=== PATIENT | male | born 1935 | race African-American/Black ===

== ENCOUNTER 2017-10-01 00:31 | Emergency (ER) | payer MEDICARE, OTHER ==
[2017-10-01] MEDS: ACETAMINOPHEN/CODEINE 300/30MG TABLET. PO (01:30)
[2017-10-01 02:27] LABS: BILIRUBIN,URINE NEGATIVE (NEG); CLARITY,URINE CLEAR; COLOR,URINE YELLOW; GLUCOSE,URINE NEGATIVE (NEG); NITRITE,URINE NEGATIVE (NEG); PROTEIN,URINE NEGATIVE (NEG-TRACE)
[2017-10-01 02:32] LABS: BACTERIA,URINE 0 /HPF (0-FEW); SQUAMOUS EPITHELIAL CELL,UR OCC /LPF
== END 2017-10-01 03:00 | disposition home or self-care (01) ==
LOC: ER 00:31
DX: S30.0XXA Contusion of lower back and pelvis, initial encounter (principal); I10 Essential (primary) hypertension; G89.29 Other chronic pain; Z88.2 Allergy status to sulfonamides; Z88.1 Allergy status to other antibiotic agents; Z88.8 Allergy status to other drugs, medicaments and biological substances; W01.0XXA Fall on same level from slipping, tripping and stumbling without subsequent striking against object, initial encounter; Y93.89 Activity, other specified; Y99.8 Other external cause status; Y92.89 Other specified places as the place of occurrence of the external cause
CPT/HCPCS: 71045; 72100; 73521; 81001; 99285-25

== ENCOUNTER 2017-10-10 13:45 | Emergency (ER) | payer MEDICARE, OTHER ==
[2017-10-10] MEDS ORDERED: IV NORMAL SALINE 1000ML BAG 1,000 ML IV (14:15)
[2017-10-10] MEDS ORDERED: ONDANSETRON PF 4 MG/2 ML VIAL. IV (14:15)
[2017-10-10] MEDS: DICYCLOMINE HCL 10 MG CAPSULE PO (15:14)
[2017-10-10] MEDS: ONDANSETRON ODT 4 MG TAB.RAPDIS. PO (15:14)
[2017-10-10 15:22] LABS: ADD MAN DIFF? NO
[2017-10-10 15:31] LABS: BILIRUBIN,URINE NEGATIVE (NEG); CLARITY,URINE CLEAR; COLOR,URINE YELLOW; GLUCOSE,URINE NEGATIVE (NEG); NITRITE,URINE NEGATIVE (NEG); PROTEIN,URINE NEGATIVE (NEG-TRACE)
[2017-10-10 15:32] LABS: BASO # 0.1 x10^3/uL (0.0-0.2); BASO % 1 % (0-3); EOS # 0.1 x10^3/uL (0.0-0.7); EOS % 1 % (0-3); HEMATOCRIT 40.3 % (39.0-53.0); HEMOGLOBIN 13.3 g/dL (13.0-17.5); LYMPH # 1.6 x10^3/uL (1.0-4.8); LYMPH % 17 % (24-48); MEAN CORPUSCULAR HEMOGLOBIN 30 pg (25-35); MEAN CORPUSCULAR HGB CONC 33 g/dL (31-37); MEAN CORPUSCULAR VOLUME 92 fL (79-100); MONO # 0.9 x10^3/uL (0.0-1.1); MONO % 9 % (0-9); NEUT # 6.7 x10^3uL (1.8-7.7); NEUT % 72 % (31-73); PLATELET COUNT 285 x10^3/uL (140-400); RED BLOOD COUNT 4.38 x10^6/uL (4.30-5.70); RED CELL DISTRIBUTION WIDTH 14.2 % (11.5-14.5); WHITE BLOOD COUNT 9.4 x10^3/uL (4.0-11.0)
[2017-10-10 15:38] LABS: ANION GAP 6 (6-14); BLOOD UREA NITROGEN 14 mg/dL (8-26); BUN/CREATININE RATIO 16 (6-20); CALCIUM 9.2 mg/dL (8.5-10.1); CARBON DIOXIDE 32 mmol/L (21-32); CHLORIDE 105 mmol/L (98-107); CREATININE 0.9 mg/dL (0.7-1.3); GFR 98.2; GLUCOSE 84 mg/dL (70-99); POTASSIUM 3.9 mmol/L (3.5-5.1); SODIUM 143 mmol/L (136-145)
[2017-10-10 15:41] LABS: BACTERIA,URINE 0 /HPF (0-FEW); SQUAMOUS EPITHELIAL CELL,UR FEW /LPF; WBC,URINE OCC /HPF (0-4)
[2017-10-10 15:44] LABS: ALBUMIN 3.4 g/dL (3.4-5.0); ALK PHOS 98 U/L (46-116); ALT (SGPT) 22 U/L (16-63); AST (SGOT) 15 U/L (15-37); LIPASE 423 U/L (73-393); TOTAL BILIRUBIN 0.3 mg/dL (0.2-1.0); TOTAL PROTEIN 6.7 g/dL (6.4-8.2)
== END 2017-10-10 16:15 | disposition home or self-care (01) ==
LOC: ER 13:45
DX: G89.29 Other chronic pain (principal); M54.5 Low back pain; M54.6 Pain in thoracic spine; R10.9 Unspecified abdominal pain; I10 Essential (primary) hypertension; Z98.890 Other specified postprocedural states; Z88.1 Allergy status to other antibiotic agents; Z88.8 Allergy status to other drugs, medicaments and biological substances; Z88.2 Allergy status to sulfonamides
CPT/HCPCS: 36415; 72072; 72100; 80053; 81001; 83690; 85025; 99285-25; Q0162

== ENCOUNTER 2017-10-23 14:29 | Inpatient (IN) | payer MEDICARE, OTHER ==
[2017-10-23] MEDS ORDERED: ACETAMINOPHEN 325 MG TABLET. PO ×2 (15:45→16:45)
[2017-10-23] MEDS ORDERED: ONDANSETRON PF 4 MG/2 ML VIAL. IV ×2 (15:45→16:45)
[2017-10-23 15:52] LABS: ADD MAN DIFF? NO
[2017-10-23 15:57] LABS: BASO # 0.1 x10^3/uL (0.0-0.2); BASO % 1 % (0-3); EOS # 0.1 x10^3/uL (0.0-0.7); EOS % 1 % (0-3); HEMATOCRIT 45.3 % (39.0-53.0); HEMOGLOBIN 15.2 g/dL (13.0-17.5); LYMPH # 1.1 x10^3/uL (1.0-4.8); LYMPH % 13 % (24-48); MEAN CORPUSCULAR HEMOGLOBIN 31 pg (25-35); MEAN CORPUSCULAR HGB CONC 34 g/dL (31-37); MEAN CORPUSCULAR VOLUME 92 fL (79-100); MONO # 0.7 x10^3/uL (0.0-1.1); MONO % 8 % (0-9); NEUT # 6.8 x10^3uL (1.8-7.7); NEUT % 78 % (31-73); PLATELET COUNT 307 x10^3/uL (140-400); RED BLOOD COUNT 4.94 x10^6/uL (4.30-5.70); RED CELL DISTRIBUTION WIDTH 14.2 % (11.5-14.5); WHITE BLOOD COUNT 8.7 x10^3/uL (4.0-11.0)
[2017-10-23 16:08] LABS: ANION GAP 8 (6-14); BLOOD UREA NITROGEN 14 mg/dL (8-26); CALCIUM 9.5 mg/dL (8.5-10.1); CARBON DIOXIDE 30 mmol/L (21-32); CHLORIDE 103 mmol/L (98-107); CREATININE 0.8 mg/dL (0.7-1.3); GFR 112.5; GLUCOSE 88 mg/dL (70-99); POTASSIUM 4.4 mmol/L (3.5-5.1); SODIUM 141 mmol/L (136-145)
[2017-10-23 16:20] LABS: BILIRUBIN,URINE NEGATIVE (NEG); COLOR,URINE YELLOW; GLUCOSE,URINE NEGATIVE (NEG); NITRITE,URINE NEGATIVE (NEG); PROTEIN,URINE NEGATIVE (NEG-TRACE)
[2017-10-23 16:25] LABS: BACTERIA,URINE 0 /HPF (0-FEW); CLARITY,URINE HAZY; WBC,URINE 0 /HPF (0-4)
[2017-10-23] MEDS ORDERED: DOCUSATE SODIUM 100 MG CAPSULE. PO (16:45)
[2017-10-23] MEDS ORDERED: hydrALAZINE 20 MG/ML VIAL. IVP (16:45)
[2017-10-23] MEDS ORDERED: MORPHINE SULFATE 2 MG/ML DISP.SYRIN. IV (16:45)
[2017-10-23] MEDS: ENOXAPARIN 40 MG/0.4 ML SYRINGE. SQ (16:45)
[2017-10-23] MEDS: traMADol 50 MG TABLET PO (23:33)
[2017-10-24 05:31] LABS: ADD MAN DIFF? NO
[2017-10-24 05:38] LABS: BASO # 0.1 x10^3/uL (0.0-0.2); BASO % 1 % (0-3); EOS # 0.2 x10^3/uL (0.0-0.7); EOS % 3 % (0-3); HEMATOCRIT 38.7 % (39.0-53.0); LYMPH # 1.1 x10^3/uL (1.0-4.8); LYMPH % 20 % (24-48); MEAN CORPUSCULAR HEMOGLOBIN 31 pg (25-35); MEAN CORPUSCULAR HGB CONC 34 g/dL (31-37); MEAN CORPUSCULAR VOLUME 92 fL (79-100); MONO # 0.7 x10^3/uL (0.0-1.1); MONO % 11 % (0-9); NEUT # 3.8 x10^3uL (1.8-7.7); NEUT % 65 % (31-73); PLATELET COUNT 207 x10^3/uL (140-400); RED BLOOD COUNT 4.23 x10^6/uL (4.30-5.70); RED CELL DISTRIBUTION WIDTH 13.8 % (11.5-14.5); WHITE BLOOD COUNT 5.9 x10^3/uL (4.0-11.0)
[2017-10-24 05:53] LABS: ANION GAP 4 (6-14); BLOOD UREA NITROGEN 19 mg/dL (8-26); CALCIUM 8.8 mg/dL (8.5-10.1); CARBON DIOXIDE 30 mmol/L (21-32); CHLORIDE 109 mmol/L (98-107); CREATININE 0.9 mg/dL (0.7-1.3); GFR 98.2; GLUCOSE 76 mg/dL (70-99); SODIUM 143 mmol/L (136-145)
[2017-10-24] MEDS: POLYETHYLENE GLYCOL 3350 17 GM PACKET. PO (11:30)
[2017-10-24] MEDS: PANTOPRAZOLE 40 MG TABLET.DR. PO (13:25)
[2017-10-24] MEDS: GABAPENTIN 300 MG CAPSULE. PO ×2 (13:25→20:52)
[2017-10-24] MEDS: LISINOPRIL 10 MG TABLET PO (13:26)
[2017-10-24] MEDS: DICYCLOMINE HCL 10 MG CAPSULE PO ×2 (13:27→20:52)
[2017-10-24] MEDS: LIDOCAINE (700MG/PATCH) PATCH. TD (13:27)
[2017-10-24] MEDS: ENOXAPARIN 40 MG/0.4 ML SYRINGE. SQ (17:47)
[2017-10-24] MEDS: DICLOFENAC SODIUM 1% TOPICAL GEL 100GM TUBE. TP (20:52)
[2017-10-24] MEDS: PATCH REMOVAL. MC (21:00)
[2017-10-25] MEDS: DICYCLOMINE HCL 10 MG CAPSULE PO ×3 (08:53→20:25)
[2017-10-25] MEDS: LIDOCAINE (700MG/PATCH) PATCH. TD (08:53)
[2017-10-25] MEDS: PANTOPRAZOLE 40 MG TABLET.DR. PO (08:53)
[2017-10-25] MEDS: LISINOPRIL 10 MG TABLET PO (08:54)
[2017-10-25] MEDS: POLYETHYLENE GLYCOL 3350 17 GM PACKET. PO (09:00)
[2017-10-25] MEDS: DICLOFENAC SODIUM 1% TOPICAL GEL 100GM TUBE. TP ×4 (09:00→20:25)
[2017-10-25] MEDS: GABAPENTIN 300 MG CAPSULE. PO ×2 (10:50→20:25)
[2017-10-25] MEDS: ENOXAPARIN 40 MG/0.4 ML SYRINGE. SQ (17:08)
[2017-10-25] MEDS: PATCH REMOVAL. MC (20:26)
[2017-10-26] MEDS: PANTOPRAZOLE 40 MG TABLET.DR. PO (09:09)
[2017-10-26] MEDS: POLYETHYLENE GLYCOL 3350 17 GM PACKET. PO (09:10)
[2017-10-26] MEDS: GABAPENTIN 300 MG CAPSULE. PO ×2 (09:10→20:21)
[2017-10-26] MEDS: LIDOCAINE (700MG/PATCH) PATCH. TD (09:10)
[2017-10-26] MEDS: DICYCLOMINE HCL 10 MG CAPSULE PO ×3 (09:10→20:20)
[2017-10-26] MEDS: LISINOPRIL 10 MG TABLET PO (09:10)
[2017-10-26] MEDS: DICLOFENAC SODIUM 1% TOPICAL GEL 100GM TUBE. TP ×4 (09:11→20:21)
[2017-10-26] MEDS: ENOXAPARIN 40 MG/0.4 ML SYRINGE. SQ (17:37)
[2017-10-26] MEDS: PATCH REMOVAL. MC (21:00)
[2017-10-27] MEDS: LISINOPRIL 10 MG TABLET PO (09:39)
[2017-10-27] MEDS: POLYETHYLENE GLYCOL 3350 17 GM PACKET. PO (09:39)
[2017-10-27] MEDS: PANTOPRAZOLE 40 MG TABLET.DR. PO (09:39)
[2017-10-27] MEDS: GABAPENTIN 300 MG CAPSULE. PO (09:39)
[2017-10-27] MEDS: DICYCLOMINE HCL 10 MG CAPSULE PO ×2 (09:39→14:00)
[2017-10-27] MEDS: DICLOFENAC SODIUM 1% TOPICAL GEL 100GM TUBE. TP ×2 (09:40→13:00)
[2017-10-27] MEDS: LIDOCAINE (700MG/PATCH) PATCH. TD (09:40)
[2017-10-27] MEDS: traMADol 50 MG TABLET PO (09:48)
[2017-10-31] MEDS ORDERED: NON FORMULARY ITEM (Alendronate Sodium 70 MG) PO (09:00)
== END 2017-10-27 17:32 | DRG 552 ==
LOC: ER 14:29 → 6 SOUTH 15:12
DX: M54.5 Low back pain (principal); G95.89 Other specified diseases of spinal cord; R53.81 Other malaise; K21.9 Gastro-esophageal reflux disease without esophagitis; G89.29 Other chronic pain; I10 Essential (primary) hypertension; E78.5 Hyperlipidemia, unspecified; G62.9 Polyneuropathy, unspecified; Z60.2 Problems related to living alone; M19.90 Unspecified osteoarthritis, unspecified site; Z85.46 Personal history of malignant neoplasm of prostate; K59.09 Other constipation; Z88.2 Allergy status to sulfonamides; R41.89 Other symptoms and signs involving cognitive functions and awareness; R32 Unspecified urinary incontinence
CPT/HCPCS: 36415; 80048; 81001; 85025; 97110-GO; 97110-GP; 97116-GP; 97161-GP; 97166-GO; 97530-GP; 97535-GO; 99285; 99285-25; J1650

== ENCOUNTER 2018-09-01 02:48 | Inpatient (IN) | payer OTHER ==
[2018-09-01] VITALS (18 sets, daily range): BP systolic 135–168; BP diastolic 64–95
[~2018-09-01] VITALS: Ht 185.4 cm; Wt 50.9 kg
[~2018-09-01 02:48] MED LIST: ALEN70TA6 PO; CELE-20; DICY20TA3 PO; FOSI10TA PO; GABA300C18 PO; OMEP20CA10 PO; POLY17PO29 PO
[2018-09-01] MEDS ORDERED: FAMOTIDINE 20 MG/2 ML VIAL IVP ONE (03:15)
[2018-09-01 03:38] LABS: CREATININE ISTAT 0.6 mg/dL (0.5-1.4); HEMOGLOBIN ISTAT 7.5 g/dL (14-18); ION CA ISTAT 1.05 mmol/L (1.13-1.32); POTASSIUM ISTAT 2.4 mmol/L (3.5-5.0)
--- NOTE | 2018-09-01 03:40 | RAD ---
Indication:short of air TECHNIQUE:Portable AP chest X-ray COMPARISON:10/01/2017 FINDINGS: Heart is normal in size. Lungs are hyperinflated. No focal consolidation. No pneumothorax or pleural effusion. Visualized bony thorax within normal limits. IMPRESSION: COPD. Superimposed atypical/viral infection not ruled out. Electronically signed by: aTiwo Wiseman DO (09/01/2018 3:37 AM) [facility]
[2018-09-01 03:58] LABS: ALBUMIN 2.2 g/dL (3.4-5.0); ALBUMIN/GLOBULIN RATIO 0.5 (1.0-1.7); ALK PHOS 108 U/L (46-116); ANION GAP 10 (6-14); AST (SGOT) 11 U/L (15-37); BLOOD UREA NITROGEN 13 mg/dL (8-26); BUN/CREATININE RATIO 19 (6-20); CALCIUM 8.4 mg/dL (8.5-10.1); CARBON DIOXIDE 29 mmol/L (21-32); CHLORIDE 102 mmol/L (98-107); CREATININE 0.7 mg/dL (0.7-1.3); GLUCOSE 152 mg/dL (70-99); LIPASE 65 U/L (73-393); SODIUM 141 mmol/L (136-145); TOTAL BILIRUBIN 0.4 mg/dL (0.2-1.0); TOTAL PROTEIN 6.5 g/dL (6.4-8.2)
[2018-09-01 04:00] LABS: ALT (SGPT) < 6 U/L (16-63)
[2018-09-01 04:02] LABS: POTASSIUM 2.4 mmol/L (3.5-5.1)
--- NOTE | 2018-09-01 04:02 | PHYS DOC ---
Past Medical History Past Medical History: Arthritis, Constipation, Dementia, GERD, Hypertension Additional Past Medical Histor: CHRONIC BACK PAIN, OSTEOPOROSIS Past Surgical History: Other Additional Past Surgical Histo: BACK SURG Alcohol Use: None Drug Use: None Adult General Chief Complaint Chief Complaint: ABDOMINAL PAIN HPI HPI Patient is a 83 year old male who is brought to ED by EMS today due to chief complaint of epigastric abdominal pain. Patient states that the pain started about midnight tonight. Patient is from a [facility] facility. Patient denies bleeding from his rectum. Patient also states that he has a history of GERD but does not take any medication for it currently. Review of Systems Review of Systems Patient denies fever or chills, nausea, vomiting, diarrhea, dysuria, shortness of breath. Complains of chest pain, epigastric abdominal pain. Current Medications Current Medications Current Medications Medications (Trade) Dose Ordered Sig/Judith Start Time Stop Time Status Last Admin Dose Admin Famotidine (Pepcid Vial) 20 mg 1X ONCE 09/01/18 03:15 09/01/18 03:16 DC 09/01/18 03:22 20 MG Potassium Chloride (Klor-Con) 60 meq 1X ONCE 09/01/18 04:45 09/01/18 04:46 DC 09/01/18 04:53 60 MEQ Allergies Allergies Allergies Coded Allergies Type Severity Reaction Last Updated Verified Sulfa (Sulfonamide Antibiotics) Allergy Intermediate 09/26/17 Yes ciprofloxacin Allergy Intermediate 09/26/17 Yes duloxetine Allergy Intermediate 09/26/17 Yes Physical Exam Physical Exam Constitutional: Well developed, well nourished, no acute distress, non-toxic appearance. HENT: Normocephalic, atraumatic, normocaphalic Eyes: EOMI Neck: Normal range of motion, no tenderness, supple Cardiovascular:Heart rate regular rhythm, no murmur Resp: Bilateral breath sounds clear to auscultation Abdomen: Soft, no tenderness, no distension Skin: Pale Back: No tenderness, no CVA tenderness. Extremities: No tenderness, ROM intact, no edema. Neurologic: Alert and oriented X 3, normal motor function, normal sensory function, no focal deficits noted. Psychologic: Affect normal, judgement normal, mood normal. Current Patient Data Vital Signs Vital Signs Date Time Temp Pulse Resp B/P (MAP) Pulse Ox O2 Delivery O2 Flow Rate FiO2 09/01/18 05:00 102 20 146/74 (98) 100 Room Air 09/01/18 02:48 98.2 98.2 Lab Values Laboratory Tests Test 09/01/18 03:23 09/01/18 03:24 09/01/18 03:26 09/01/18 04:45 Sodium Level 141 mmol/L (136-145) Potassium Level 2.4 mmol/L (3.5-5.1) *L Chloride Level 102 mmol/L (98-107) Carbon Dioxide Level 29 mmol/L (21-32) Anion Gap 10 (6-14) 18 mmol/L (6-14) H Blood Urea Nitrogen 13 mg/dL (8-26) Creatinine 0.7 mg/dL (0.7-1.3) Estimated GFR (Cockcroft-Gault) 131.0 BUN/Creatinine Ratio 19 (6-20) Glucose Level 152 mg/dL (70-99) H 148 mg/dL (70-99) H Calcium Level 8.4 mg/dL (8.5-10.1) L Phosphorus Level 3.5 mg/dL (2.6-4.7) Iron Level 9 ug/dL (65-175) L Total Iron Binding Capacity 79 ug/dL (250-450) L Iron Saturation 11 % (15-34) L Total Bilirubin 0.4 mg/dL (0.2-1.0) Aspartate Amino Transferase (AST) 11 U/L (15-37) L Alanine Aminotransferase (ALT) < 6 U/L (16-63) L Alkaline Phosphatase 108 U/L (46-116) Total Protein 6.5 g/dL (6.4-8.2) Albumin 2.2 g/dL (3.4-5.0) L Albumin/Globulin Ratio 0.5 (1.0-1.7) L Lipase 65 U/L (73-393) L Vitamin B12 Level 946 pg/mL (247-911) H Procalcitonin 1.24 ng/mL (0.00-0.10) H POC Troponin I 0.01 ng/ml (<0.08) POC Hemoglobin 7.5 g/dL (14-18) L POC Hematocrit 22 % (37-52) L POC Sodium 141 mmol/L (135-145) POC Potassium 2.4 mmol/L (3.5-5.0) L POC Chloride 99 mmol/L (98-110) POC Total CO2 27 mmol/L (23-32) POC Blood Urea Nitrogen 10 mg/dL (8-26) POC Creatinine 0.6 mg/dL (0.5-1.4) POC Ionized Calcium (Vielka) 1.05 mmol/L (1.13-1.32) L White Blood Count 14.0 x10^3/uL (4.0-11.0) H Red Blood Count 2.83 x10^6/uL (4.30-5.70) L Hemoglobin 6.6 g/dL (13.0-17.5) *L Hematocrit 21.6 % (39.0-53.0) L Mean Corpuscular Volume 76 fL (79-100) L Mean Corpuscular Hemoglobin 23 pg (25-35) L Mean Corpuscular Hemoglobin Concent 30 g/dL (31-37) L Red Cell Distribution Width 18.9 % (11.5-14.5) H Platelet Count 277 x10^3/uL (140-400) Neutrophils (%) (Auto) 85 % (31-73) H Lymphocytes (%) (Auto) 7 % (24-48) L Monocytes (%) (Auto) 8 % (0-9) Eosinophils (%) (Auto) 0 % (0-3) Basophils (%) (Auto) 0 % (0-3) Neutrophils # (Auto) 11.9 x10^3uL (1.8-7.7) H Lymphocytes # (Auto) 0.9 x10^3/uL (1.0-4.8) L Monocytes # (Auto) 1.2 x10^3/uL (0.0-1.1) H Eosinophils # (Auto) 0.0 x10^3/uL (0.0-0.7) Basophils # (Auto) 0.0 x10^3/uL (0.0-0.2) Laboratory Tests 09/01/18 04:45 Laboratory Tests 09/01/18 03:23 09/01/18 03:26 EKG EKG EKG interpretation: 3:07 AM on 09/01/2001 HR: 94 Normal sinus rhythm Regular intervals Normal axis Nonspecific ST changes No STEMI No acute changes from EKG on 01/09/2016 Radiology/Procedures Radiology/Procedures PROCEDURE: PORTABLE CHEST 1V Indication:short of air TECHNIQUE:Portable AP chest X-ray COMPARISON:10/01/2017 FINDINGS: Heart is normal in size. Lungs are hyperinflated. No focal consolidation. No pneumothorax or pleural effusion. Visualized bony thorax within normal limits. IMPRESSION: COPD. Superimposed atypical/viral infection not ruled out. Electronically signed by: Taiwo Wiseman DO (09/01/2018 3:37 AM) [facility] Course & Med Decision Making Course & Med Decision Making Pertinent Labs and Imaging studies reviewed. (See chart for details) Ordered labs, chest x-ray, EKG Chest x-ray shows no acute disease. EKG shows no acute changes. There are nonspecific ST changes. Troponin is negative. Labs show the patient's potassium is 2.4. Replace potassium in the ED. Ordered 20 mg IV Pepcid.in ED. Patient's hemoglobin is 7.430. Hemoglobin 6.6. I ordered 1 unit RBC transfusion. Plan to do a rectal exam to suggest a GI bleed. Patient refuses rectal exam. States that he does not feel that he has rectal bleeding. Patient has a history of dementia. Currently is alert and is able to answer questions appropriately. Patient will be admitted for further evaluation and care. Discussed case with Dr. Ruano who is hospitalist monomer recovery supervisor who accepts admission. I discussed results and plan of care with patient. Dragon Disclaimer Dragon Disclaimer This electronic medical record was generated, in whole or in part, using a voice recognition dictation system. Departure Departure Referrals: VIDYA MANNING MD (PCP) LUBNA WEBBER DO September 01, 2018 04:02
[2018-09-01] MEDS ORDERED: POTASSIUM CHLORIDE 20 MEQ TABLET.ER. PO ONE (04:45)
[2018-09-01 04:55] LABS: BASO % 0 % (0-3); EOS % 0 % (0-3); HEMATOCRIT 21.6 % (39.0-53.0); LYMPH # 0.9 x10^3/uL (1.0-4.8); LYMPH % 7 % (24-48); MEAN CORPUSCULAR HEMOGLOBIN 23 pg (25-35); MEAN CORPUSCULAR HGB CONC 30 g/dL (31-37); MEAN CORPUSCULAR VOLUME 76 fL (79-100); MONO # 1.2 x10^3/uL (0.0-1.1); MONO % 8 % (0-9); NEUT # 11.9 x10^3uL (1.8-7.7); NEUT % 85 % (31-73); PLATELET COUNT 277 x10^3/uL (140-400); RED BLOOD COUNT 2.83 x10^6/uL (4.30-5.70); RED CELL DISTRIBUTION WIDTH 18.9 % (11.5-14.5)
[2018-09-01 04:58] LABS: HEMOGLOBIN 6.6 g/dL (13.0-17.5)
--- NOTE | 2018-09-01 06:58 | NUR ---
Patient arrived on unit at 0605. Patient only alert to person, very easily agitated. Patient had large bowel movement, old wound dressings removed from coccyx due to stool, foam applied. VSS. Sepsis screen negative.
--- NOTE | 2018-09-01 06:59 | EKG ---
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
--- NOTE | 2018-09-01 07:55 | PDOC1 ---
History and Physical Date of Admission Date of Admission DATE: 09/01/18 TIME: 07:49 Identification/Chief Complaint Chief Complaint Weakness Source Source: Caregiver, Chart review, Patient History of Present Illness History of Present Illness 83 yo M w/ PMHx chronic back pain, prostate ca history, dementia is brought to ED by EMS today due to chief complaint of epigastric abdominal pain. Patient states that the pain started about midnight tonight. Patient is from a senior living facility. Patient denies bleeding from his rectum. Patient also states that he has a history of GERD but does not take any medication for it currently. Potassium 2.4 with EKG showing long QT interval and incomplete RBBB. WBC 14 with CXR showing possible infection and COPD. Hb noted to be 6.6, was admitted to the ICU for concern for possible upper GI bleed. Past Medical History Cardiovascular: HTN, Hyperlipidemia Pulmonary: Other CENTRAL NERVOUS SYSTEM: Periperal neuropathy GI: Constipation Heme/Onc: No pertinent hx Hepatobiliary: No pertinent hx Musculoskeletal: low back pain, Osteoarthritis Rheumatologic: No pertinent hx Infectious disease: No pertinent hx Renal/: No pertinent hx, Prostate Ca. Endocrine: No pertinent hx Past Surgical History Past Surgical History: Other Family History Family History: No Significant Social History Smoke: No ALCOHOL: none Drugs: None Current Medications Current Medications Current Medications Famotidine (Pepcid Vial) 20 mg 1X ONCE IVP Last administered on 09/01/18at 03:22; Start 09/01/18 at 03:15; Stop 09/01/18 at 03:16; Status DC Potassium Chloride (Klor-Con) 60 meq 1X ONCE PO Last administered on 09/01/18at 04:53; Start 09/01/18 at 04:45; Stop 09/01/18 at 04:46; Status DC Active Scripts Active Dicyclomine Hcl 20 Mg Tablet 1 Tab PO TID Reported Miralax (Polyethylene Glycol 3350) 17 Gm Powd.pack 1 Pkt PO DAILY Alendronate Sodium 70 Mg Tablet 70 Mg PO WEEKLY Fosinopril Sodium 10 Mg Tablet 10 Mg PO DAILY Gabapentin 300 Mg Capsule 300 Mg PO BID Omeprazole 20 Mg Capsule.dr 20 Mg PO DAILYAC Allergies Allergies: Coded Allergies: Sulfa (Sulfonamide Antibiotics) (Verified Allergy, Intermediate, 09/26/17) ciprofloxacin (Verified Allergy, Intermediate, 09/26/17) duloxetine (Verified Allergy, Intermediate, 09/26/17) ROS General: YES: Fatigue, Malaise; No: Chills, Night Sweats, Appetite, Other PSYCHOLOGICAL ROS: No: Anxiety, Behavioral Disorder, Concentration difficultie, Decreased libido, Depression, Disorientation, Hallucinations, Hostility, Irritablity, Memory difficulties, Mood Swings, Obsessive thoughts, Physical abuse, Sexual abuse, Sleep disturbances, Suicidal ideation, Other Eyes: No Blurry vision, No Decreased vision, No Double vision, No Dry eyes, No Excessive tearing, No Eye Pain, No Itchy Eyes, No Loss of vision, No Photophobia, No Scotomata, No Uses contacts, No Uses glasses, No Other HEENT: No: Heacaches, Visual Changes, Hearing change, Nasal congestion, Nasal discharge, Oral lesions, Sinus pain, Sore Throat, Epistaxis, Sneezing, Snoring, Tinnitus, Vertigo, Vocal changes, Other ALLERGY AND IMMUNOLOGY: No: Hives, Insect Bite Sensitivity, Itchy/Watery Eyes, Nasal Congestion, Post Nasal Drip, Seasonal Allergies, Other Hematological and Lymphatic: No: Bleeding Problems, Blood Clots, Blood Transfusions, Brusing, Night Sweats, Pallor, Swollen Lymph Nodes, Other ENDOCRINE: No: Breast Changes, Galactorrhea, Hair Pattern Changes, Hot Flashes, Malaise/lethargy, Mood Swings, Palpitations, Polydipsia/polyuria, Skin Changes, Temperature Intolerance, Unexpected Weight Changes, Other Breast: No New/Changing Breast Lumps, No Nipple changes, No Nipple discharge, No Other Respiratory: No: Cough, Hemoptysis, Orthopnea, Pleuritic Pain, Shortness of breath, SOB with excertion, Sputum Changes, Stridor, Tachypnea, Wheezing, Other Cardiovascular: No Chest Pain, No Palpitations, No Orthopnea, No Paroxysmal Noc. Dyspnea, No Edema, No Lt Headedness, No Other Gastrointestinal: Yes Nausea, Yes Abdominal Pain; No Vomiting, No Diarrhea, No Constipation, No Melena, No Hematochezia, No Other Genitourinary: No Dysuria, No Frequency, No Incontinence, No Hematuria, No Retention, No Discharge, No Urgency, No Pain, No Flank Pain, No Other, No , No , No , No , No , No , No Musculoskeletal: No Gait Disturbance, No Joint Pain, No Joint Stiffness, No Joint Swelling, No Muscle Pain, No Muscular Weakness, No Pain In:, No Swelling In:, No Other Neurological: No Behavorial Changes, No Bowel/Bladder ControlChng, No Confusion, No Dizziness, No Gait Disturbance, No Headaches, No Impaired Coord/balance, No Memory Loss, No Numbness/Tingling, No Seizures, No Speech Problems, No Tremors, No Visual Changes, No Weakness, No Other Skin: No Dry Skin, No Eczema, No Hair Changes, No Lumps, No Mole Changes, No Mottling, No Nail Changes, No Pruritus, No Rash, No Skin Lesion Changes, No Other, No Acne Physical Exam General: Alert, Cooperative, No acute distress, Other HEENT: Atraumatic, PERRLA, EOMI, Mucous membr. moist/pink Lungs: Clear to auscultation, Normal air movement Heart: S1S2, RRR Abdomen: Normal bowel sounds, Soft, No tenderness, No hepatosplenomegaly, No masses Extremities: No clubbing, No cyanosis, No edema, Normal pulses, No tenderness/swelling Skin: No rashes, No significant lesion, Other (Gluteal breakdown bilaterally) Neuro: Normal speech, Strength at 5/5 X4 ext, Normal tone, Sensation intact, Cranial nerves 3-12 NL, Reflexes 2+ Psych/Mental Status: Mental status NL, Mood NL Vitals Vitals Vital Signs Date Time Temp Pulse Resp B/P (MAP) Pulse Ox O2 Delivery O2 Flow Rate FiO2 09/01/18 06:30 94 22 164/78 (106) 99 Room Air 09/01/18 06:15 97.5 97.5 Labs Labs Laboratory Tests Test 09/01/18 03:23 09/01/18 03:24 09/01/18 03:26 09/01/18 04:45 Sodium Level 141 mmol/L (136-145) Potassium Level 2.4 mmol/L (3.5-5.1) Chloride Level 102 mmol/L (98-107) Carbon Dioxide Level 29 mmol/L (21-32) Anion Gap 10 (6-14) 18 mmol/L (6-14) Blood Urea Nitrogen 13 mg/dL (8-26) Creatinine 0.7 mg/dL (0.7-1.3) Estimated GFR (Cockcroft-Gault) 131.0 BUN/Creatinine Ratio 19 (6-20) Glucose Level 152 mg/dL (70-99) 148 mg/dL (70-99) Calcium Level 8.4 mg/dL (8.5-10.1) Total Bilirubin 0.4 mg/dL (0.2-1.0) Aspartate Amino Transf (AST/SGOT) 11 U/L (15-37) Alanine Aminotransferase (ALT/SGPT) < 6 U/L (16-63) Alkaline Phosphatase 108 U/L (46-116) Total Protein 6.5 g/dL (6.4-8.2) Albumin 2.2 g/dL (3.4-5.0) Albumin/Globulin Ratio 0.5 (1.0-1.7) Lipase 65 U/L (73-393) Bedside Troponin I 0.01 ng/ml (<0.08) Bedside Hemoglobin 7.5 g/dL (14-18) Bedside Hematocrit 22 % (37-52) Bedside Sodium 141 mmol/L (135-145) Bedside Potassium 2.4 mmol/L (3.5-5.0) Bedside Chloride 99 mmol/L (98-110) Bedside Total CO2 27 mmol/L (23-32) Bedside Blood Urea Nitrogen 10 mg/dL (8-26) Bedside Creatinine 0.6 mg/dL (0.5-1.4) Bedside Ionized Calcium (Vielka) 1.05 mmol/L (1.13-1.32) White Blood Count 14.0 x10^3/uL (4.0-11.0) Red Blood Count 2.83 x10^6/uL (4.30-5.70) Hemoglobin 6.6 g/dL (13.0-17.5) Hematocrit 21.6 % (39.0-53.0) Mean Corpuscular Volume 76 fL (79-100) Mean Corpuscular Hemoglobin 23 pg (25-35) Mean Corpuscular Hemoglobin Concent 30 g/dL (31-37) Red Cell Distribution Width 18.9 % (11.5-14.5) Platelet Count 277 x10^3/uL (140-400) Neutrophils (%) (Auto) 85 % (31-73) Lymphocytes (%) (Auto) 7 % (24-48) Monocytes (%) (Auto) 8 % (0-9) Eosinophils (%) (Auto) 0 % (0-3) Basophils (%) (Auto) 0 % (0-3) Neutrophils # (Auto) 11.9 x10^3uL (1.8-7.7) Lymphocytes # (Auto) 0.9 x10^3/uL (1.0-4.8) Monocytes # (Auto) 1.2 x10^3/uL (0.0-1.1) Eosinophils # (Auto) 0.0 x10^3/uL (0.0-0.7) Basophils # (Auto) 0.0 x10^3/uL (0.0-0.2) Laboratory Tests Test 09/01/18 03:23 09/01/18 03:24 09/01/18 03:26 09/01/18 04:45 Sodium Level 141 mmol/L (136-145) Potassium Level 2.4 mmol/L (3.5-5.1) Chloride Level 102 mmol/L (98-107) Carbon Dioxide Level 29 mmol/L (21-32) Anion Gap 10 (6-14) 18 mmol/L (6-14) Blood Urea Nitrogen 13 mg/dL (8-26) Creatinine 0.7 mg/dL (0.7-1.3) Estimated GFR (Cockcroft-Gault) 131.0 BUN/Creatinine Ratio 19 (6-20) Glucose Level 152 mg/dL (70-99) 148 mg/dL (70-99) Calcium Level 8.4 mg/dL (8.5-10.1) Total Bilirubin 0.4 mg/dL (0.2-1.0) Aspartate Amino Transf (AST/SGOT) 11 U/L (15-37) Alanine Aminotransferase (ALT/SGPT) < 6 U/L (16-63) Alkaline Phosphatase 108 U/L (46-116) Total Protein 6.5 g/dL (6.4-8.2) Albumin 2.2 g/dL (3.4-5.0) Albumin/Globulin Ratio 0.5 (1.0-1.7) Lipase 65 U/L (73-393) Bedside Troponin I 0.01 ng/ml (<0.08) Bedside Hemoglobin 7.5 g/dL (14-18) Bedside Hematocrit 22 % (37-52) Bedside Sodium 141 mmol/L (135-145) Bedside Potassium 2.4 mmol/L (3.5-5.0) Bedside Chloride 99 mmol/L (98-110) Bedside Total CO2 27 mmol/L (23-32) Bedside Blood Urea Nitrogen 10 mg/dL (8-26) Bedside Creatinine 0.6 mg/dL (0.5-1.4) Bedside Ionized Calcium (Vielka) 1.05 mmol/L (1.13-1.32) White Blood Count 14.0 x10^3/uL (4.0-11.0) Red Blood Count 2.83 x10^6/uL (4.30-5.70) Hemoglobin 6.6 g/dL (13.0-17.5) Hematocrit 21.6 % (39.0-53.0) Mean Corpuscular Volume 76 fL (79-100) Mean Corpuscular Hemoglobin 23 pg (25-35) Mean Corpuscular Hemoglobin Concent 30 g/dL (31-37) Red Cell Distribution Width 18.9 % (11.5-14.5) Platelet Count 277 x10^3/uL (140-400) Neutrophils (%) (Auto) 85 % (31-73) Lymphocytes (%) (Auto) 7 % (24-48) Monocytes (%) (Auto) 8 % (0-9) Eosinophils (%) (Auto) 0 % (0-3) Basophils (%) (Auto) 0 % (0-3) Neutrophils # (Auto) 11.9 x10^3uL (1.8-7.7) Lymphocytes # (Auto) 0.9 x10^3/uL (1.0-4.8) Monocytes # (Auto) 1.2 x10^3/uL (0.0-1.1) Eosinophils # (Auto) 0.0 x10^3/uL (0.0-0.7) Basophils # (Auto) 0.0 x10^3/uL (0.0-0.2) Images Images CXR - COPD. Superimposed atypical/viral infection not ruled out. VTE Prophylaxis Ordered VTE Prophylaxis Devices: Yes VTE Pharmacological Prophylaxi: No Assessment/Plan Assessment/Plan A/P: Acute anemia - Hb 6.6, will transfuse 1u PRBC, f/u H&H Hypokalemia - will replace IV and oral, check mag level Chest pain - likely demand ischemia from acute anemia, will trend troponins, telemetry COPD - will place on nebulizer treatments Leukocytosis - meets SIRS criteria, sepsis with pneumonia as source - high risk for gram negative, HCAP from SNF, will check procalcitonin and treat accordingly - lloyd Gen weakness, bl legs - SNF resident, will have PT/OT work with him when he is recovered more Chronic lower back pain - will cont pain medications prn HTN - cont home meds GERD - PPI Dementia with behavioral disorder - light during day, redirection. Zyprexa IM prn Gluteal decubitus ulcers - wound care to see FEN - Cardiac diet if ok with GI PPX - SCDs, PPI DNR/DNI Dispo - ICU for acute anemia, will monitor, may be able to downgrade to telemetry. Needs at least 2 midnights inpatient SALEEM MONK MD September 01, 2018 07:55
[2018-09-01] MEDS ORDERED: LISI10TA2 PO (08:31)
[2018-09-01] MEDS ORDERED: PANT20TA2 (08:31)
[2018-09-01] MEDS ORDERED: QUET25TA PO (08:34)
[2018-09-01] MEDS ORDERED: CALC-98 PO (08:34)
[2018-09-01] MEDS ORDERED: LACT1CAP2 PO (08:34)
[2018-09-01] MEDS ORDERED: ZINC220T PO (08:36)
[2018-09-01] MEDS: PANTOPRAZOLE 40 MG TABLET.DR. PO SCH (09:00)
[2018-09-01] MEDS: POLYETHYLENE GLYCOL 3350 17 GM PACKET. PO SCH (09:00)
[2018-09-01] MEDS: LISINOPRIL 10 MG TABLET PO SCH (09:00)
[2018-09-01] MEDS: DICYCLOMINE HCL 10 MG CAPSULE PO SCH ×3 (09:00→21:32)
[2018-09-01] MEDS: POTASSIUM CHLORIDE 10MEQ 100 ML IV SCH ×4 (09:04→23:10)
[2018-09-01 09:34] LABS: PHOSPHORUS 3.5 mg/dL (2.6-4.7)
[2018-09-01] MEDS ORDERED: LABETALOL 20 MG/4 ML DISP.SYRIN. IVP PRN (10:00)
--- NOTE | 2018-09-01 11:19 | PDOC2 ---
GI CONSULT Reason For Consult: epigastric pain, hgb 6.6 HPI: HPI: 83 y/o male admitted to ICU (from SNF to ER) w/ abd pain and anemia. H/o dementia, suspect historian (though able to tell me where he is, the year, and his ). Tells me intermittent abdominal pain "all over" "for awhile now." He is holding an emesis basin and spit saliva into a tissue. Denies n/v and dysphagia. Might have some heartburn sometimes, takes "whatever is in the medicine cabinet." Denies change in appetite, early satiety, and weight loss. Denies diarrhea, might have constipation sometimes. Denies hematemesis, hematochezia, and melena. Might take some OTC pain meds sometimes - asks me to name a few and thinks some sound familiar (ibuprofen, Tylenol, Excedrin). Denies previous EGD. Thinks he had a colonoscopy "three weeks ago with a local physician." Denies GB, liver, and pancreas history. Hgb 6.6, MCV 76, RDW 18.9, normal BUN and Cr, iron 9 w/ sat 11. For comparison, Hgb was 13 in 10/2017. No abd imaging. Plans for transfusion, has PPI ordered. Per RN, had a brown stool earlier. Summary includes pantoprazole, Miralax, and alendronate. PMH: PMH: per chart - dementia, HTN, HLD, peripheral neuropathy, constipation, OA, lower back pain, prostate cancer, ?sarcoidosis back surgery, prostatectomy FH: Family History: No pertinent hx Social History: Smoke: No ALCOHOL: none Drugs: None ROS: A bit difficult to obtain - says "I have a little pain right now." Vitals: Vitals: Vital Signs Date Time Temp Pulse Resp B/P (MAP) Pulse Ox O2 Delivery O2 Flow Rate FiO2 09/01/18 08:00 Room Air 09/01/18 06:30 94 22 164/78 (106) 99 09/01/18 06:15 97.5 97.5 Labs: Labs: Laboratory Tests Test 09/01/18 03:23 09/01/18 03:24 09/01/18 03:26 09/01/18 04:45 Sodium Level 141 mmol/L (136-145) Potassium Level 2.4 mmol/L (3.5-5.1) Chloride Level 102 mmol/L (98-107) Carbon Dioxide Level 29 mmol/L (21-32) Anion Gap 10 (6-14) 18 mmol/L (6-14) Blood Urea Nitrogen 13 mg/dL (8-26) Creatinine 0.7 mg/dL (0.7-1.3) Estimated GFR (Cockcroft-Gault) 131.0 BUN/Creatinine Ratio 19 (6-20) Glucose Level 152 mg/dL (70-99) 148 mg/dL (70-99) Calcium Level 8.4 mg/dL (8.5-10.1) Phosphorus Level 3.5 mg/dL (2.6-4.7) Iron Level 9 ug/dL (65-175) Total Iron Binding Capacity 79 ug/dL (250-450) Iron Saturation 11 % (15-34) Total Bilirubin 0.4 mg/dL (0.2-1.0) Aspartate Amino Transf (AST/SGOT) 11 U/L (15-37) Alanine Aminotransferase (ALT/SGPT) < 6 U/L (16-63) Alkaline Phosphatase 108 U/L (46-116) Total Protein 6.5 g/dL (6.4-8.2) Albumin 2.2 g/dL (3.4-5.0) Albumin/Globulin Ratio 0.5 (1.0-1.7) Lipase 65 U/L (73-393) Vitamin B12 Level 946 pg/mL (247-911) Bedside Troponin I 0.01 ng/ml (<0.08) Bedside Hemoglobin 7.5 g/dL (14-18) Bedside Hematocrit 22 % (37-52) Bedside Sodium 141 mmol/L (135-145) Bedside Potassium 2.4 mmol/L (3.5-5.0) Bedside Chloride 99 mmol/L (98-110) Bedside Total CO2 27 mmol/L (23-32) Bedside Blood Urea Nitrogen 10 mg/dL (8-26) Bedside Creatinine 0.6 mg/dL (0.5-1.4) Bedside Ionized Calcium (Vielka) 1.05 mmol/L (1.13-1.32) White Blood Count 14.0 x10^3/uL (4.0-11.0) Red Blood Count 2.83 x10^6/uL (4.30-5.70) Hemoglobin 6.6 g/dL (13.0-17.5) Hematocrit 21.6 % (39.0-53.0) Mean Corpuscular Volume 76 fL (79-100) Mean Corpuscular Hemoglobin 23 pg (25-35) Mean Corpuscular Hemoglobin Concent 30 g/dL (31-37) Red Cell Distribution Width 18.9 % (11.5-14.5) Platelet Count 277 x10^3/uL (140-400) Neutrophils (%) (Auto) 85 % (31-73) Lymphocytes (%) (Auto) 7 % (24-48) Monocytes (%) (Auto) 8 % (0-9) Eosinophils (%) (Auto) 0 % (0-3) Basophils (%) (Auto) 0 % (0-3) Neutrophils # (Auto) 11.9 x10^3uL (1.8-7.7) Lymphocytes # (Auto) 0.9 x10^3/uL (1.0-4.8) Monocytes # (Auto) 1.2 x10^3/uL (0.0-1.1) Eosinophils # (Auto) 0.0 x10^3/uL (0.0-0.7) Basophils # (Auto) 0.0 x10^3/uL (0.0-0.2) Allergies: Coded Allergies: Sulfa (Sulfonamide Antibiotics) (Verified Allergy, Intermediate, 09/26/17) ciprofloxacin (Verified Allergy, Intermediate, 09/26/17) duloxetine (Verified Allergy, Intermediate, 09/26/17) Medications: Current Medications Medications (Trade) Dose Ordered Sig/Judith Route PRN Reason Start Time Stop Time Status Last Admin Dose Admin Famotidine (Pepcid Vial) 20 mg 1X ONCE IVP 09/01/18 03:15 09/01/18 03:16 DC 09/01/18 03:22 Potassium Chloride (Klor-Con) 60 meq 1X ONCE PO 09/01/18 04:45 09/01/18 04:46 DC 09/01/18 04:53 Potassium Chloride/Water 100 ml @ 100 mls/hr Q1H IV 09/01/18 09:00 09/01/18 12:59 09/01/18 10:14 Imaging: Imaging: CXR IMPRESSION: COPD. Superimposed atypical/viral infection not ruled out. PE: GEN: NAD, thin HEENT: Atraumatic, PERRL LUNGS: room air, poor effort - talks through exam HEART: RRR ABD: NABS, S/ND/NT EXTREMITY/SKIN: BLE w/ boots/bandages NEURO/PSYCH: A & O 3 though suspect historian A/P: A/P: Abd pain ERASMO ?GERD, ?NSAID use, ?constipation - PPI and Miralax on med list ?CRC screen - no records at our office Hypokalemia - per primary H/o prostate cancer Dementia -- Will tentatively schedule EGD for tomorrow morning pending improvement in hypokalemia. Agree w/ transfusion and PPI. Check KUB, could try diet today. Unable to order retic count. HILDA CASEY September 01, 2018 11:19
[2018-09-01] MEDS: IPRATRPIUM/ALBUTEROL 0.5/2.5MG 3 ML NEBU. NEB SCH ×3 (11:44→21:42)
--- NOTE | 2018-09-01 13:05 | NUR ---
Patient pulled out only IV access. Patient refuses to allow RN to place telemetry on him. Educated patient on importance of cardiac monitoring. Patient still refused. Tried to get ahold of patients for PICC consent. No answer. Patient is yelling and refusing all care at the moment. Addendum: 09/01/18 at 1458 by DARIA MARTINO RN This RN has attempted twice to take wound photos of patients buttocks. Patient has refused with verbal, pulling my arms away and pinching.
--- NOTE | 2018-09-01 13:12 | RAD ---
EXAM: Abdomen, single view. HISTORY: Pain. COMPARISON: None. FINDINGS: A frontal view of the abdomen is obtained. There are distended air-filled loops of bowel throughout the upper and mid abdomen. There is gas and stool within the colon. There are surgical clips within the pelvis. There is bilateral hip osteoarthrosis and degenerative change involving the lumbar spine. IMPRESSION: Distended air-filled loops of bowel within the upper and mid abdomen. The differential includes ileus and distal partial obstruction. Electronically signed by: Angelita Sawyer MD (09/01/2018 1:09 PM) [place] [id number]
[2018-09-01] MEDS ORDERED: OLANZapine IM 10 MG VIAL. IM ONE (13:45)
[2018-09-01] MEDS ORDERED: VANCOMYCIN 1 GM in IV NORMAL SALINE 250ML 250 ML IV SCH (13:45)
[2018-09-01] MEDS ORDERED: VANCOMYCIN 1.25 GM in IV NORMAL SALINE 250ML 250 ML IV ONE (14:00)
--- NOTE | 2018-09-01 16:46 | NUR ---
SS following for discharge planning. SS received notification that pt was from [facility], ; fax [phone]. SS contacted [facility] to verify pt's previous placement. [facility] verified that pt was a LTC resident from there facility and was able to return when medically stable for discharge.
[2018-09-01] MEDS ORDERED: ZIPRASIDONE IM 20 MG VIAL. IM ONE (17:00)
--- NOTE | 2018-09-01 17:00 | NUR ---
Wound care left patient's room. Patient was compliant with wound care team. Reapplied equipment monitor phototypesetting on patient. Patient said, "No thank you." When I tried again, patient, "DON'T" and push my hands away. camp recreation specialist was notified.
--- NOTE | 2018-09-01 17:39 | NUR ---
wound care: Patient seen per wound care consult. see wound assessment. Patient has multiple pressure ulcers. All dressings removed and wounds cleansed, assessed, measured, and photographed. patient has unstageable pressure ulcers to sacrum, right and left ischium. redressed with Aquacel Ag and foam dressings. Patient has stage I pressure ulcers to the right lateral ankle and the right lateral mid foot, redressed with ABD and kerlix. Patient has an unstageable pressure ulcer to the right heel and a stage IV to the left heel, redressed with Aquacel ag, ABD pads, and kerlix. Patient was pleasant and tolerated well. Patient repositioned in bed and turned to right side using wedge. A Clinitron bed and bilateral heel medix were ordered for this patient. Bed lowered and call light in reach. patient is on ICU bed at this time.
[2018-09-01] MEDS: risperiDONE 1 MG TABLET. PO SCH (21:34)
[2018-09-01] MEDS: VANCOMYCIN PER PHARMACY MC PRN (21:59)
--- NOTE | 2018-09-01 22:01 | NUR ---
Pharmacy Vancomycin Dosing Note S:Consulted to monitor and dose vancomycin started 09/01/18. O:SELVIN PAUL is a 83 year old M with Cellulitis . Height: 6 feet, 1 inches Weight: 50.469097 kg [place] Body Weight: 79.90 Adjusted Body Weight: 68.26 Dosing Weight: Actual Other Antibiotics: LABS: Last BUN: 13 Last Creatinine: 0.7 Creatinine Clearance: 41.6 mL/min Last WBC: 14.0 Last Procalcitonin: 1.24 Tmax (past 24 hours): Microbiology: I/O: Drug Levels: Last level: on at Last dose given at Vancomycin Dosing: Loading Dose: 1250 mg x1 09/01/18 21:39 Dosing Weight: Actual Target Trough: 10-20 A: Based on: Actual Wt and CrCl P: 1. 09/02/180 Vancomycin 750 mg IV q24h 2. Follow up Trough level on 09/03/18 at 2100 3. Pharmacy will continue to monitor, follow and adjust therapy as needed. ROGELIO LEYVA RPH, 09/01/182200 Signed: 09/01/18 at 2202 by ROGELIO LEYVA RPH PHA
--- NOTE | 2018-09-01 22:31 | RAD ---
PORTABLE CHEST 1V History: PICC PLACEMENT. Comparison with September 01 at 3:11 AM. There has been placement of a right arm PICC line with tip over the cavoatrial junction. No evidence of pneumothorax, pleural effusion or infiltrate. Heart size not enlarged. Mild distention of upper abdominal bowel loops. IMPRESSION: Tip of right arm PICC line overlies cavoatrial junction. Electronically signed by: Ed Bahena MD (09/01/2018 10:29 PM) [facility]
[2018-09-02] VITALS (13 sets, daily range): BP systolic 131–169; BP diastolic 61–90
[2018-09-02 02:09] LABS: HEMATOCRIT 23.7 % (39.0-53.0); HEMOGLOBIN 7.7 g/dL (13.0-17.5); RED BLOOD COUNT 3.03 x10^6/uL (4.30-5.70); RED CELL DISTRIBUTION WIDTH 18.6 % (11.5-14.5); WHITE BLOOD COUNT 11.1 x10^3/uL (4.0-11.0)
[2018-09-02 06:16] LABS: CALCIUM 8.4 mg/dL (8.5-10.1); CREATININE 0.6 mg/dL (0.7-1.3); GFR 156.5; PHOSPHORUS 2.1 mg/dL (2.6-4.7); POTASSIUM 3.9 mmol/L (3.5-5.1)
[2018-09-02 06:31] LABS: BASO % 0 % (0-3); EOS % 0 % (0-3); HEMOGLOBIN 7.6 g/dL (13.0-17.5); LYMPH # 0.9 x10^3/uL (1.0-4.8); LYMPH % 8 % (24-48); MEAN CORPUSCULAR HEMOGLOBIN 26 pg (25-35); MEAN CORPUSCULAR HGB CONC 33 g/dL (31-37); MEAN CORPUSCULAR VOLUME 78 fL (79-100); MONO # 1.2 x10^3/uL (0.0-1.1); MONO % 11 % (0-9); NEUT % 81 % (31-73); PLATELET COUNT 206 x10^3/uL (140-400); RED BLOOD COUNT 2.96 x10^6/uL (4.30-5.70); RED CELL DISTRIBUTION WIDTH 18.2 % (11.5-14.5); WHITE BLOOD COUNT 11.1 x10^3/uL (4.0-11.0)
[2018-09-02] MEDS ORDERED: fentaNYL PF VIAL 100 MCG/2 ML VIAL IV PRN ×4 (07:00→10:30)
[2018-09-02] MEDS ORDERED: PROCHLORPERAZINE 10 MG/2 ML VIAL. IV PRN (07:00)
[2018-09-02] MEDS ORDERED: MORPHINE SULFATE 2 MG/ML VIAL. IV PRN (07:00)
[2018-09-02] MEDS ORDERED: LIDOCAINE 1% PF 2 ML VIAL. ID PRN ×2 (07:00→10:30)
[2018-09-02] MEDS ORDERED: IV RINGERS,LACTATED 1000ML 1,000 ML IV SCH ×2 (07:00→10:29)
[2018-09-02] MEDS ORDERED: ONDANSETRON PF 4 MG/2 ML VIAL. IV PRN (07:00)
[2018-09-02] MEDS ORDERED: HYDROmorphone 2 MG/ML VIAL IV PRN (07:00)
[2018-09-02] MEDS: PANTOPRAZOLE 40 MG TABLET.DR. PO SCH (07:30)
[2018-09-02] MEDS: IPRATRPIUM/ALBUTEROL 0.5/2.5MG 3 ML NEBU. NEB SCH ×4 (07:52→20:14)
--- NOTE | 2018-09-02 08:58 | PDOC ---
PROGRESS NOTES Chief Complaint Chief Complaint A/P: Acute anemia - Hb 6.6 s/p 1u PRBC, f/u H&H daily. EGD 09/02 Hypokalemia - Replaced, monitor Chest pain - likely demand ischemia from acute anemia, will trend troponins, telemetry COPD - will place on nebulizer treatments Leukocytosis - meets SIRS criteria, sepsis with pneumonia as source - high risk for gram negative, HCAP from SNF, will check procalcitonin and treat accordingly - lloyd Gen weakness, bl legs - SNF resident, will have PT/OT work with him when he is recovered more Chronic lower back pain - will cont pain medications prn HTN - cont home meds GERD - PPI Dementia with behavioral disorder - light during day, redirection. Zyprexa IM prn, risperidal at night Gluteal decubitus ulcers - wound care to see FEN - Cardiac diet if ok with GI PPX - SCDs, PPI DNR/DNI Dispo - ICU for acute anemia, will monitor, may be able to downgrade to telemetry after EGD today. Needs at least 2 midnights inpatient History of Present Illness History of Present Illness 83 yo M w/ PMHx chronic back pain, prostate ca history, dementia is brought to ED by EMS from [facility] due to chief complaint of epigastric abdominal pain started about midnight. Patient denies bleeding from his rectum. Potassium 2.4 with EKG showing long QT interval and incomplete RBBB. WBC 14 with CXR showing possible infection and COPD. Hb noted to be 6.6, was admitted to the ICU for concern for possible upper GI bleed and gluteal pressure ulcers. Had a difficult day yesterday, very agitated, required redirection, tori kwong. Pulled out his IV prior to blood and K infusions, required PICC insertion. Slept ok after that. Hb 7.6 and K 3.9 this morning. He is still somewhat agitated, yelling at nursing staff, refusing most care, especially refusing to be turned Q2hrs. special bed ordered for pressure ulcers. Plan: NPO for EGD today If stable after procedure can downgrade to telemetry floor Vitals Vitals Vital Signs Date Time Temp Pulse Resp B/P (MAP) Pulse Ox O2 Delivery O2 Flow Rate FiO2 09/02/18 08:00 Room Air 09/02/18 07:00 101 19 133/71 (91) 97 09/02/18 04:12 98.7 98.7 Physical Exam General: Alert, Cooperative, No acute distress, Other Lungs: Clear Abdomen: Normal bowel sounds, Soft, No tenderness, No hepatosplenomegaly, No masses Extremities: No clubbing, No cyanosis, No edema, Normal pulses, No tenderness/swelling Skin: No rashes, No significant lesion, Other (Gluteal breakdown bilaterally) Labs LABS Laboratory Tests Test 09/02/18 02:00 09/02/18 05:30 White Blood Count 11.1 x10^3/uL (4.0-11.0) 11.1 x10^3/uL (4.0-11.0) Red Blood Count 3.03 x10^6/uL (4.30-5.70) 2.96 x10^6/uL (4.30-5.70) Hemoglobin 7.7 g/dL (13.0-17.5) 7.6 g/dL (13.0-17.5) Hematocrit 23.7 % (39.0-53.0) 23.0 % (39.0-53.0) Mean Corpuscular Volume 78 fL (79-100) 78 fL (79-100) Mean Corpuscular Hemoglobin 25 pg (25-35) 26 pg (25-35) Mean Corpuscular Hemoglobin Concent 32 g/dL (31-37) 33 g/dL (31-37) Red Cell Distribution Width 18.6 % (11.5-14.5) 18.2 % (11.5-14.5) Platelet Count 193 x10^3/uL (140-400) 206 x10^3/uL (140-400) Neutrophils (%) (Auto) 81 % (31-73) Lymphocytes (%) (Auto) 8 % (24-48) Monocytes (%) (Auto) 11 % (0-9) Eosinophils (%) (Auto) 0 % (0-3) Basophils (%) (Auto) 0 % (0-3) Neutrophils # (Auto) 9.0 x10^3uL (1.8-7.7) Lymphocytes # (Auto) 0.9 x10^3/uL (1.0-4.8) Monocytes # (Auto) 1.2 x10^3/uL (0.0-1.1) Eosinophils # (Auto) 0.0 x10^3/uL (0.0-0.7) Basophils # (Auto) 0.0 x10^3/uL (0.0-0.2) Sodium Level 143 mmol/L (136-145) Potassium Level 3.9 mmol/L (3.5-5.1) Chloride Level 105 mmol/L (98-107) Carbon Dioxide Level 28 mmol/L (21-32) Anion Gap 10 (6-14) Blood Urea Nitrogen 9 mg/dL (8-26) Creatinine 0.6 mg/dL (0.7-1.3) Estimated GFR (Cockcroft-Gault) 156.5 Glucose Level 95 mg/dL (70-99) Calcium Level 8.4 mg/dL (8.5-10.1) Phosphorus Level 2.1 mg/dL (2.6-4.7) Albumin 2.0 g/dL (3.4-5.0) Comment Review of Relevant I have reviewed the following items minor (where applicable) has been applied. Labs Laboratory Tests Test 09/01/18 03:23 09/01/18 03:24 09/01/18 03:26 09/01/18 04:45 Sodium Level 141 mmol/L (136-145) Potassium Level 2.4 mmol/L (3.5-5.1) Chloride Level 102 mmol/L (98-107) Carbon Dioxide Level 29 mmol/L (21-32) Anion Gap 10 (6-14) 18 mmol/L (6-14) Blood Urea Nitrogen 13 mg/dL (8-26) Creatinine 0.7 mg/dL (0.7-1.3) Estimated GFR (Cockcroft-Gault) 131.0 BUN/Creatinine Ratio 19 (6-20) Glucose Level 152 mg/dL (70-99) 148 mg/dL (70-99) Calcium Level 8.4 mg/dL (8.5-10.1) Phosphorus Level 3.5 mg/dL (2.6-4.7) Iron Level 9 ug/dL (65-175) Total Iron Binding Capacity 79 ug/dL (250-450) Iron Saturation 11 % (15-34) Total Bilirubin 0.4 mg/dL (0.2-1.0) Aspartate Amino Transf (AST/SGOT) 11 U/L (15-37) Alanine Aminotransferase (ALT/SGPT) < 6 U/L (16-63) Alkaline Phosphatase 108 U/L (46-116) Total Protein 6.5 g/dL (6.4-8.2) Albumin 2.2 g/dL (3.4-5.0) Albumin/Globulin Ratio 0.5 (1.0-1.7) Lipase 65 U/L (73-393) Vitamin B12 Level 946 pg/mL (247-911) Procalcitonin 1.24 ng/mL (0.00-0.10) Bedside Troponin I 0.01 ng/ml (<0.08) Bedside Hemoglobin 7.5 g/dL (14-18) Bedside Hematocrit 22 % (37-52) Bedside Sodium 141 mmol/L (135-145) Bedside Potassium 2.4 mmol/L (3.5-5.0) Bedside Chloride 99 mmol/L (98-110) Bedside Total CO2 27 mmol/L (23-32) Bedside Blood Urea Nitrogen 10 mg/dL (8-26) Bedside Creatinine 0.6 mg/dL (0.5-1.4) Bedside Ionized Calcium (Vielka) 1.05 mmol/L (1.13-1.32) White Blood Count 14.0 x10^3/uL (4.0-11.0) Red Blood Count 2.83 x10^6/uL (4.30-5.70) Hemoglobin 6.6 g/dL (13.0-17.5) Hematocrit 21.6 % (39.0-53.0) Mean Corpuscular Volume 76 fL (79-100) Mean Corpuscular Hemoglobin 23 pg (25-35) Mean Corpuscular Hemoglobin Concent 30 g/dL (31-37) Red Cell Distribution Width 18.9 % (11.5-14.5) Platelet Count 277 x10^3/uL (140-400) Neutrophils (%) (Auto) 85 % (31-73) Lymphocytes (%) (Auto) 7 % (24-48) Monocytes (%) (Auto) 8 % (0-9) Eosinophils (%) (Auto) 0 % (0-3) Basophils (%) (Auto) 0 % (0-3) Neutrophils # (Auto) 11.9 x10^3uL (1.8-7.7) Lymphocytes # (Auto) 0.9 x10^3/uL (1.0-4.8) Monocytes # (Auto) 1.2 x10^3/uL (0.0-1.1) Eosinophils # (Auto) 0.0 x10^3/uL (0.0-0.7) Basophils # (Auto) 0.0 x10^3/uL (0.0-0.2) Test 09/02/18 02:00 09/02/18 05:30 White Blood Count 11.1 x10^3/uL (4.0-11.0) 11.1 x10^3/uL (4.0-11.0) Red Blood Count 3.03 x10^6/uL (4.30-5.70) 2.96 x10^6/uL (4.30-5.70) Hemoglobin 7.7 g/dL (13.0-17.5) 7.6 g/dL (13.0-17.5) Hematocrit 23.7 % (39.0-53.0) 23.0 % (39.0-53.0) Mean Corpuscular Volume 78 fL (79-100) 78 fL (79-100) Mean Corpuscular Hemoglobin 25 pg (25-35) 26 pg (25-35) Mean Corpuscular Hemoglobin Concent 32 g/dL (31-37) 33 g/dL (31-37) Red Cell Distribution Width 18.6 % (11.5-14.5) 18.2 % (11.5-14.5) Platelet Count 193 x10^3/uL (140-400) 206 x10^3/uL (140-400) Neutrophils (%) (Auto) 81 % (31-73) Lymphocytes (%) (Auto) 8 % (24-48) Monocytes (%) (Auto) 11 % (0-9) Eosinophils (%) (Auto) 0 % (0-3) Basophils (%) (Auto) 0 % (0-3) Neutrophils # (Auto) 9.0 x10^3uL (1.8-7.7) Lymphocytes # (Auto) 0.9 x10^3/uL (1.0-4.8) Monocytes # (Auto) 1.2 x10^3/uL (0.0-1.1) Eosinophils # (Auto) 0.0 x10^3/uL (0.0-0.7) Basophils # (Auto) 0.0 x10^3/uL (0.0-0.2) Sodium Level 143 mmol/L (136-145) Potassium Level 3.9 mmol/L (3.5-5.1) Chloride Level 105 mmol/L (98-107) Carbon Dioxide Level 28 mmol/L (21-32) Anion Gap 10 (6-14) Blood Urea Nitrogen 9 mg/dL (8-26) Creatinine 0.6 mg/dL (0.7-1.3) Estimated GFR (Cockcroft-Gault) 156.5 Glucose Level 95 mg/dL (70-99) Calcium Level 8.4 mg/dL (8.5-10.1) Phosphorus Level 2.1 mg/dL (2.6-4.7) Albumin 2.0 g/dL (3.4-5.0) Laboratory Tests Test 09/02/18 02:00 09/02/18 05:30 White Blood Count 11.1 x10^3/uL (4.0-11.0) 11.1 x10^3/uL (4.0-11.0) Red Blood Count 3.03 x10^6/uL (4.30-5.70) 2.96 x10^6/uL (4.30-5.70) Hemoglobin 7.7 g/dL (13.0-17.5) 7.6 g/dL (13.0-17.5) Hematocrit 23.7 % (39.0-53.0) 23.0 % (39.0-53.0) Mean Corpuscular Volume 78 fL (79-100) 78 fL (79-100) Mean Corpuscular Hemoglobin 25 pg (25-35) 26 pg (25-35) Mean Corpuscular Hemoglobin Concent 32 g/dL (31-37) 33 g/dL (31-37) Red Cell Distribution Width 18.6 % (11.5-14.5) 18.2 % (11.5-14.5) Platelet Count 193 x10^3/uL (140-400) 206 x10^3/uL (140-400) Neutrophils (%) (Auto) 81 % (31-73) Lymphocytes (%) (Auto) 8 % (24-48) Monocytes (%) (Auto) 11 % (0-9) Eosinophils (%) (Auto) 0 % (0-3) Basophils (%) (Auto) 0 % (0-3) Neutrophils # (Auto) 9.0 x10^3uL (1.8-7.7) Lymphocytes # (Auto) 0.9 x10^3/uL (1.0-4.8) Monocytes # (Auto) 1.2 x10^3/uL (0.0-1.1) Eosinophils # (Auto) 0.0 x10^3/uL (0.0-0.7) Basophils # (Auto) 0.0 x10^3/uL (0.0-0.2) Sodium Level 143 mmol/L (136-145) Potassium Level 3.9 mmol/L (3.5-5.1) Chloride Level 105 mmol/L (98-107) Carbon Dioxide Level 28 mmol/L (21-32) Anion Gap 10 (6-14) Blood Urea Nitrogen 9 mg/dL (8-26) Creatinine 0.6 mg/dL (0.7-1.3) Estimated GFR (Cockcroft-Gault) 156.5 Glucose Level 95 mg/dL (70-99) Calcium Level 8.4 mg/dL (8.5-10.1) Phosphorus Level 2.1 mg/dL (2.6-4.7) Albumin 2.0 g/dL (3.4-5.0) Medications Current Medications Famotidine (Pepcid Vial) 20 mg 1X ONCE IVP Last administered on 09/01/18at 03:22; Start 09/01/18 at 03:15; Stop 09/01/18 at 03:16; Status DC Potassium Chloride (Klor-Con) 60 meq 1X ONCE PO Last administered on 09/01/18at 04:53; Start 09/01/18 at 04:45; Stop 09/01/18 at 04:46; Status DC Dicyclomine HCl (Bentyl) 10 mg TID PO Last administered on 09/01/18at 21:32; Start 09/01/18 at 09:00 Lisinopril (Prinivil) 10 mg DAILY PO ; Start 09/01/18 at 09:00 Pantoprazole Sodium (Protonix) 40 mg DAILYAC PO ; Start 09/01/18 at 09:00 Polyethylene Glycol (miraLAX PACKET) 17 gm DAILY PO ; Start 09/01/18 at 09:00 Potassium Chloride/Water 100 ml @ 100 mls/hr Q1H IV Last administered on 09/01/18at 23:10; Start 09/01/18 at 09:00; Stop 09/01/18 at 12:59; Status DC Albuterol/ Ipratropium (Duoneb) 3 ml RTQID NEB Last administered on 09/02/18at 07:52; Start 09/01/18 at 12:00 Labetalol HCl (Normodyne Iv Push) 10 mg Q4HRS PRN IVP HYPERTENSION, SEE COMMENTS; Start 09/01/18 at 10:00 Ondansetron HCl (Zofran) 4 mg PRN Q6HRS PRN IV NAUSEA/VOMITING; Start 09/02/18 at 07:00; Stop 09/03/18 at 06:59 Fentanyl Citrate (Fentanyl 2ml Vial) 25 mcg PRN Q5MIN PRN IV MILD PAIN; Start 09/02/18 at 07:00; Stop 09/03/18 at 06:59 Fentanyl Citrate (Fentanyl 2ml Vial) 50 mcg PRN Q5MIN PRN IV MODERATE TO SEVERE PAIN; Start 09/02/18 at 07:00; Stop 09/03/18 at 06:59 Morphine Sulfate (Morphine Sulfate) 1 mg PRN Q10MIN PRN IV SEVERE PAIN; Start 09/02/18 at 07:00; Stop 09/03/18 at 06:59 Ringer's Solution 1,000 ml @ 30 mls/hr Q24H IV ; Start 09/02/18 at 07:00; Stop 09/02/18 at 18:59 Lidocaine HCl (Xylocaine-Mpf 1% 2ml Vial) 2 ml PRN 1X PRN ID PRIOR TO IV START; Start 09/02/18 at 07:00; Stop 09/03/18 at 06:59 Hydromorphone HCl (Dilaudid) 0.5 mg PRN Q10MIN PRN IV SEV PAIN, Second choice; Start 09/02/18 at 07:00; Stop 09/03/18 at 06:59 Prochlorperazine Edisylate (Compazine) 5 mg PACU PRN PRN IV NAUSEA, MRX1; Start 09/02/18 at 07:00; Stop 09/03/18 at 06:59 Olanzapine (ZyPREXA IM) 10 mg 1X ONCE IM Last administered on 09/01/18at 14:19; Start 09/01/18 at 13:45; Stop 09/01/18 at 13:46; Status DC Vancomycin HCl 1 gm/Sodium Chloride 250 ml @ 250 mls/hr Q12H IV ; Start 09/01/18 at 13:45; Status UNV Vancomycin HCl (Vanco Per Pharmacy) 1 each PRN DAILY PRN MC SEE COMMENTS Last administered on 09/01/18at 21:59; Start 09/01/18 at 14:00 Vancomycin HCl 1.25 gm/Sodium Chloride 250 ml @ 166.667 mls/hr 1X ONCE IV Last administered on 09/01/18at 21:39; Start 09/01/18 at 14:00; Stop 09/01/18 at 15:29; Status DC Olanzapine (ZyPREXA IM) 5 mg PRN BID PRN IM agitation; Start 09/01/18 at 14:00 Risperidone (RisperDAL) 1 mg QHS PO Last administered on 09/01/18at 21:34; Start 09/01/18 at 21:00 Ziprasidone (Geodon Im) 20 mg 1X ONCE IM Last administered on 09/01/18at 20:01; Start 09/01/18 at 17:00; Stop 09/01/18 at 17:01; Status DC Vancomycin HCl 750 mg/Sodium Chloride 250 ml @ 250 mls/hr Q24H IV ; Start 09/02/18 at 21:30 Vancomycin HCl (Vancomycin Trough Level) 1 each 1X ONCE MC ; Start 09/03/18 at 21:00; Stop 09/03/18 at 21:01 Active Scripts Active Reported Zinc Sulfate 220 Mg Tablet 220 Mg PO DAILY Calcium + Vitamin D Tablet (Calcium Carbonate/Vitamin D3) 1 Each Tablet 1 Each PO BID Acidophilus (Lactobacillus Acidophilus) 1 Each Capsule 2 Each PO TID Quetiapine Fumarate 25 Mg Tablet 25 Mg PO BID Lisinopril 10 Mg Tablet 10 Mg PO DAILY Protonix (Pantoprazole Sodium) 20 Mg Tablet.dr 40 Mg DAILY Miralax (Polyethylene Glycol 3350) 17 Gm Powd.pack 1 Pkt PO DAILY Alendronate Sodium 70 Mg Tablet 70 Mg PO WEEKLY Gabapentin 300 Mg Capsule 300 Mg PO TID Vitals/I & O Vital Sign - Last 24 Hours 09/01/18 09/01/18 09/01/18 09/01/18 09:00 10:00 11:00 11:35 Temp 98.4 98.4 Pulse 98 98 94 Resp 24 24 16 B/P (MAP) 160/86 (110) 153/86 (108) 162/88 (112) Pulse Ox 98 98 99 98 O2 Delivery Room Air Room Air Room Air Room Air 09/01/18 09/01/18 09/01/18 09/01/18 12:00 14:00 14:18 16:00 Resp 20 B/P (MAP) 148/83 (104) Pulse Ox 98 97 O2 Delivery Room Air Room Air Room Air Room Air 09/01/18 09/01/18 09/01/18 09/01/18 17:00 18:00 19:00 20:00 Temp 98.3 98.3 Pulse 108 105 Resp 18 16 20 16 B/P (MAP) 137/95 (109) 160/70 (100) 166/95 (118) 155/85 (108) Pulse Ox 97 99 99 99 O2 Delivery Room Air Room Air Room Air Room Air 09/01/18 09/01/18 09/01/18 09/01/18 20:00 21:07 21:44 21:59 Temp 98.2 98.2 Pulse 100 117 Resp 20 20 B/P (MAP) 168/74 (105) 147/64 Pulse Ox 99 97 O2 Delivery Room Air Room Air Room Air 09/01/18 09/01/18 09/01/18 09/01/18 22:10 22:15 23:00 23:59 Temp 98.7 98.7 98.7 98.7 98.7 98.7 Pulse 105 106 110 108 Resp 20 15 20 20 B/P (MAP) 135/65 (88) 145/64 (91) 157/73 (101) 164/69 (100) Pulse Ox 99 99 99 99 O2 Delivery Room Air Room Air Room Air Room Air 09/01/18 09/02/18 09/02/18 09/02/18 23:59 01:00 02:00 03:00 Pulse 93 96 98 Resp 15 15 15 B/P (MAP) 159/71 (100) 147/76 (99) 168/71 (103) Pulse Ox 95 98 100 O2 Delivery Room Air Room Air Room Air Room Air 09/02/18 09/02/18 09/02/18 09/02/18 04:00 04:12 05:00 06:00 Temp 98.7 98.7 Pulse 101 93 87 Resp 18 14 14 B/P (MAP) 164/76 (105) 135/61 (85) 169/66 (100) Pulse Ox 100 94 100 O2 Delivery Room Air Room Air Room Air Room Air 09/02/18 09/02/18 09/02/18 07:00 07:52 08:00 Pulse 101 Resp 19 B/P (MAP) 133/71 (91) Pulse Ox 97 O2 Delivery Room Air Room Air Room Air Intake and Output 09/01/18 09/01/18 09/02/18 15:00 23:00 07:00 Intake Total 2200 ml 600 ml Output Total 0 ml 1 ml 4 ml Balance 0 ml 2199 ml 596 ml Nutrition Consultation Dietary Evaluation: Recommendations by RD: Increase Calorie Intake, Protein supplementation, PPN/TPN Comments: REC advance diet to regular as able pending GI status; REC Roman BID and Ensure as tolerated/per pt request If unable to advance diet within 24 - 72 hrs, recommend nutrition support - pt can only do PPN at this time due to no central line Expected Outcomes/Goals: Diet advancement Interpretation of weight loss: >20% in 1 year Malnutrition Findings: Weight Status: Emaciated SALEEM MONK MD September 02, 2018 08:58
[2018-09-02] MEDS: POLYETHYLENE GLYCOL 3350 17 GM PACKET. PO SCH (09:00)
[2018-09-02] MEDS: DICYCLOMINE HCL 10 MG CAPSULE PO SCH ×3 (09:00→20:26)
[2018-09-02] MEDS: LISINOPRIL 10 MG TABLET PO SCH (09:00)
[2018-09-02] MEDS: VANCOMYCIN PER PHARMACY MC PRN (10:34)
[2018-09-02] MEDS ORDERED: LIDOCAINE 2% PF 5 ML VIAL. ONE (11:13)
[2018-09-02] MEDS ORDERED: PROPOFOL 20 ML IV ONE (11:13)
--- NOTE | 2018-09-02 11:38 | PDOC4 ---
Operative Note Operative Note EGD Meds propofol per anesthesia Pre-op dx anemia Post-o dx hiatal hernia non-erosive gastritis Plan advance diet iron supplements colonoscopy deferred due to patients inability to cooperate for prep MARCELLA MILLS MD September 02, 2018 11:38
--- NOTE | 2018-09-02 18:38 | NUR ---
Patient received from ICU per [place]ron bed. Patient alert but confused, calling out frequently "take me downstairs". Oriented patient to room and unit but remains confused asking about RN's "grandson" etc. Patient refused evening meal. Patient appears to be resting quietly in bed now, skin W&D, Right upper arm triple lumen PICC dressing D&I, all ports capped. [facility] Continue cares and monitor.
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
[2018-09-02] MEDS: OLANZapine IM 10 MG VIAL. IM PRN (20:24)
[2018-09-02] MEDS: risperiDONE 1 MG TABLET. PO SCH (20:26)
[2018-09-02] MEDS ORDERED: VANCOMYCIN 750 MG in IV NORMAL SALINE 250ML 250 ML IV SCH (21:30)
[2018-09-03] MEDS ORDERED: ALBUTEROL SULFATE 2.5 MG/3 ML NEBU. NEB PRN (00:45)
[2018-09-03 02:56] VITALS: BP 134/78
[2018-09-03 06:32] LABS: BASO % 0 % (0-3); EOS % 0 % (0-3); HEMATOCRIT 27.4 % (39.0-53.0); HEMOGLOBIN 8.6 g/dL (13.0-17.5); LYMPH % 6 % (24-48); MEAN CORPUSCULAR HEMOGLOBIN 25 pg (25-35); MEAN CORPUSCULAR HGB CONC 31 g/dL (31-37); MEAN CORPUSCULAR VOLUME 80 fL (79-100); MONO # 1.2 x10^3/uL (0.0-1.1); MONO % 7 % (0-9); NEUT # 13.7 x10^3uL (1.8-7.7); NEUT % 86 % (31-73); PLATELET COUNT 231 x10^3/uL (140-400); RED BLOOD COUNT 3.43 x10^6/uL (4.30-5.70); RED CELL DISTRIBUTION WIDTH 19.2 % (11.5-14.5); WHITE BLOOD COUNT 15.9 x10^3/uL (4.0-11.0)
[2018-09-03 06:49] LABS: ALBUMIN 2.1 g/dL (3.4-5.0); CALCIUM 8.5 mg/dL (8.5-10.1); CREATININE 0.7 mg/dL (0.7-1.3); PHOSPHORUS 2.9 mg/dL (2.6-4.7); POTASSIUM 3.2 mmol/L (3.5-5.1)
[2018-09-03 07:00] VITALS: BP 123/68
[2018-09-03 07:07] LABS: % ATYL 1 % (0-0); % BANDS 7 % (0-9); % LYMPHS 6 % (24-48); % MONOS 5 % (0-10); % MYELOS 1 % (0-0); % SEGS 80 % (35-66); PLT ESTIMATE ADEQUATE (ADEQUATE)
[2018-09-03 07:08] LABS: POLYCHROMASIA PRESENT
[2018-09-03 07:09] LABS: ANISOCYTOSIS PRESENT; OVALOCYTES FEW
[2018-09-03] MEDS: IPRATRPIUM/ALBUTEROL 0.5/2.5MG 3 ML NEBU. NEB SCH ×5 (07:52→20:00)
[2018-09-03] MEDS: PANTOPRAZOLE 40 MG TABLET.DR. PO SCH (07:59)
[2018-09-03] MEDS: DICYCLOMINE HCL 10 MG CAPSULE PO SCH ×3 (07:59→20:48)
[2018-09-03] MEDS: POLYETHYLENE GLYCOL 3350 17 GM PACKET. PO SCH (07:59)
[2018-09-03] MEDS: LISINOPRIL 10 MG TABLET PO SCH (08:01)
--- NOTE | 2018-09-03 08:05 | PDOC ---
PROGRESS NOTES Chief Complaint Chief Complaint A/P: Acute anemia - Hb 6.6 s/p 1u PRBC, f/u H&H daily. EGD 5/3 Hypokalemia - Replaced, monitor Chest pain - likely demand ischemia from acute anemia, will trend troponins, telemetry COPD - will place on nebulizer treatments Leukocytosis - meets SIRS criteria, sepsis with pneumonia as source - high risk for gram negative, HCAP from SNF, will check procalcitonin and treat accordingly - lloyd Gen weakness, bl legs - SNF resident, will have PT/OT work with him when he is recovered more Chronic lower back pain - will cont pain medications prn HTN - cont home meds GERD - PPI Dementia with behavioral disorder - light during day, redirection. Zyprexa IM prn, risperidal at night Gluteal decubitus ulcers - wound care to see FEN - Cardiac diet if ok with GI PPX - SCDs, PPI DNR/DNI Dispo - WAS ADMITTED TO ICU for acute anemia, will monitor, may be able to downgrade to telemetry after EGD . Needs at least 2 midnights inpatient History of Present Illness History of Present Illness 83 yo M w/ PMHx chronic back pain, prostate ca history, dementia is brought to ED by EMS from SNF due to chief complaint of epigastric abdominal pain started about midnight. Patient denies bleeding from his rectum. Potassium 2.4 with EKG showing long QT interval and incomplete RBBB. WBC 14 with CXR showing possible infection and COPD. Hb noted to be 6.6, was admitted to the ICU for concern for possible upper GI bleed and gluteal pressure ulcers. Had a difficult day yesterday, very agitated, required redirection, tori kwong. Pulled out his IV prior to blood and K infusions, required PICC insertion. Slept ok after that. Hb 7.6 and K 3.9 this morning. He is still somewhat agitated, yelling at nursing staff, refusing most care, especially refusing to be turned Q2hrs. special bed ordered for pressure ulcers. Plan: EGD Operative Note EGD Meds propofol per anesthesia Pre-op dx anemia Post-o dx hiatal hernia non-erosive gastritis Plan advance diet iron supplements colonoscopy deferred due to patients inability to cooperate for prep telemetry floor Vitals Vitals Vital Signs Date Time Temp Pulse Resp B/P (MAP) Pulse Ox O2 Delivery O2 Flow Rate FiO2 09/03/18 08:01 88 123/68 09/03/18 07:52 92 Room Air 09/03/18 02:56 18 09/02/18 22:41 98.4 98.4 09/02/18 11:36 4 Physical Exam General: Alert, Cooperative, No acute distress, Other Lungs: Clear Abdomen: Normal bowel sounds, Soft, No tenderness, No hepatosplenomegaly, No masses Extremities: No clubbing, No cyanosis, No edema, Normal pulses, No tenderness/swelling Skin: No rashes, No significant lesion, Other (Gluteal breakdown bilaterally) Labs LABS Laboratory Tests Test 09/03/18 05:50 White Blood Count 15.9 x10^3/uL (4.0-11.0) Red Blood Count 3.43 x10^6/uL (4.30-5.70) Hemoglobin 8.6 g/dL (13.0-17.5) Hematocrit 27.4 % (39.0-53.0) Mean Corpuscular Volume 80 fL (79-100) Mean Corpuscular Hemoglobin 25 pg (25-35) Mean Corpuscular Hemoglobin Concent 31 g/dL (31-37) Red Cell Distribution Width 19.2 % (11.5-14.5) Platelet Count 231 x10^3/uL (140-400) Neutrophils (%) (Auto) 86 % (31-73) Lymphocytes (%) (Auto) 6 % (24-48) Monocytes (%) (Auto) 7 % (0-9) Eosinophils (%) (Auto) 0 % (0-3) Basophils (%) (Auto) 0 % (0-3) Neutrophils # (Auto) 13.7 x10^3uL (1.8-7.7) Lymphocytes # (Auto) 1.0 x10^3/uL (1.0-4.8) Monocytes # (Auto) 1.2 x10^3/uL (0.0-1.1) Eosinophils # (Auto) 0.0 x10^3/uL (0.0-0.7) Basophils # (Auto) 0.0 x10^3/uL (0.0-0.2) Segmented Neutrophils % 80 % (35-66) Band Neutrophils % 7 % (0-9) Lymphocytes % 6 % (24-48) Atypical Lymphocytes % (Manual) 1 % (0-0) Monocytes % 5 % (0-10) Myelocytes % 1 % (0-0) Platelet Estimate Adequate (ADEQUATE) Polychromasia Present Anisocytosis Present Tear Drop Cells Ovalocytes Few Sodium Level 143 mmol/L (136-145) Potassium Level 3.2 mmol/L (3.5-5.1) Chloride Level 102 mmol/L (98-107) Carbon Dioxide Level 26 mmol/L (21-32) Anion Gap 15 (6-14) Blood Urea Nitrogen 9 mg/dL (8-26) Creatinine 0.7 mg/dL (0.7-1.3) Estimated GFR (Cockcroft-Gault) 131.0 Glucose Level 97 mg/dL (70-99) Calcium Level 8.5 mg/dL (8.5-10.1) Phosphorus Level 2.9 mg/dL (2.6-4.7) Albumin 2.1 g/dL (3.4-5.0) Comment Review of Relevant I have reviewed the following items minor (where applicable) has been applied. Labs Laboratory Tests Test 09/02/18 02:00 09/02/18 05:30 09/03/18 05:50 White Blood Count 11.1 x10^3/uL (4.0-11.0) 11.1 x10^3/uL (4.0-11.0) 15.9 x10^3/uL (4.0-11.0) Red Blood Count 3.03 x10^6/uL (4.30-5.70) 2.96 x10^6/uL (4.30-5.70) 3.43 x10^6/uL (4.30-5.70) Hemoglobin 7.7 g/dL (13.0-17.5) 7.6 g/dL (13.0-17.5) 8.6 g/dL (13.0-17.5) Hematocrit 23.7 % (39.0-53.0) 23.0 % (39.0-53.0) 27.4 % (39.0-53.0) Mean Corpuscular Volume 78 fL (79-100) 78 fL (79-100) 80 fL (79-100) Mean Corpuscular Hemoglobin 25 pg (25-35) 26 pg (25-35) 25 pg (25-35) Mean Corpuscular Hemoglobin Concent 32 g/dL (31-37) 33 g/dL (31-37) 31 g/dL (31-37) Red Cell Distribution Width 18.6 % (11.5-14.5) 18.2 % (11.5-14.5) 19.2 % (11.5-14.5) Platelet Count 193 x10^3/uL (140-400) 206 x10^3/uL (140-400) 231 x10^3/uL (140-400) Neutrophils (%) (Auto) 81 % (31-73) 86 % (31-73) Lymphocytes (%) (Auto) 8 % (24-48) 6 % (24-48) Monocytes (%) (Auto) 11 % (0-9) 7 % (0-9) Eosinophils (%) (Auto) 0 % (0-3) 0 % (0-3) Basophils (%) (Auto) 0 % (0-3) 0 % (0-3) Neutrophils # (Auto) 9.0 x10^3uL (1.8-7.7) 13.7 x10^3uL (1.8-7.7) Lymphocytes # (Auto) 0.9 x10^3/uL (1.0-4.8) 1.0 x10^3/uL (1.0-4.8) Monocytes # (Auto) 1.2 x10^3/uL (0.0-1.1) 1.2 x10^3/uL (0.0-1.1) Eosinophils # (Auto) 0.0 x10^3/uL (0.0-0.7) 0.0 x10^3/uL (0.0-0.7) Basophils # (Auto) 0.0 x10^3/uL (0.0-0.2) 0.0 x10^3/uL (0.0-0.2) Sodium Level 143 mmol/L (136-145) 143 mmol/L (136-145) Potassium Level 3.9 mmol/L (3.5-5.1) 3.2 mmol/L (3.5-5.1) Chloride Level 105 mmol/L (98-107) 102 mmol/L (98-107) Carbon Dioxide Level 28 mmol/L (21-32) 26 mmol/L (21-32) Anion Gap 10 (6-14) 15 (6-14) Blood Urea Nitrogen 9 mg/dL (8-26) 9 mg/dL (8-26) Creatinine 0.6 mg/dL (0.7-1.3) 0.7 mg/dL (0.7-1.3) Estimated GFR (Cockcroft-Gault) 156.5 131.0 Glucose Level 95 mg/dL (70-99) 97 mg/dL (70-99) Calcium Level 8.4 mg/dL (8.5-10.1) 8.5 mg/dL (8.5-10.1) Phosphorus Level 2.1 mg/dL (2.6-4.7) 2.9 mg/dL (2.6-4.7) Albumin 2.0 g/dL (3.4-5.0) 2.1 g/dL (3.4-5.0) Segmented Neutrophils % 80 % (35-66) Band Neutrophils % 7 % (0-9) Lymphocytes % 6 % (24-48) Atypical Lymphocytes % (Manual) 1 % (0-0) Monocytes % 5 % (0-10) Myelocytes % 1 % (0-0) Platelet Estimate Adequate (ADEQUATE) Polychromasia Present Anisocytosis Present Tear Drop Cells Ovalocytes Few Laboratory Tests Test 09/03/18 05:50 White Blood Count 15.9 x10^3/uL (4.0-11.0) Red Blood Count 3.43 x10^6/uL (4.30-5.70) Hemoglobin 8.6 g/dL (13.0-17.5) Hematocrit 27.4 % (39.0-53.0) Mean Corpuscular Volume 80 fL (79-100) Mean Corpuscular Hemoglobin 25 pg (25-35) Mean Corpuscular Hemoglobin Concent 31 g/dL (31-37) Red Cell Distribution Width 19.2 % (11.5-14.5) Platelet Count 231 x10^3/uL (140-400) Neutrophils (%) (Auto) 86 % (31-73) Lymphocytes (%) (Auto) 6 % (24-48) Monocytes (%) (Auto) 7 % (0-9) Eosinophils (%) (Auto) 0 % (0-3) Basophils (%) (Auto) 0 % (0-3) Neutrophils # (Auto) 13.7 x10^3uL (1.8-7.7) Lymphocytes # (Auto) 1.0 x10^3/uL (1.0-4.8) Monocytes # (Auto) 1.2 x10^3/uL (0.0-1.1) Eosinophils # (Auto) 0.0 x10^3/uL (0.0-0.7) Basophils # (Auto) 0.0 x10^3/uL (0.0-0.2) Segmented Neutrophils % 80 % (35-66) Band Neutrophils % 7 % (0-9) Lymphocytes % 6 % (24-48) Atypical Lymphocytes % (Manual) 1 % (0-0) Monocytes % 5 % (0-10) Myelocytes % 1 % (0-0) Platelet Estimate Adequate (ADEQUATE) Polychromasia Present Anisocytosis Present Tear Drop Cells Ovalocytes Few Sodium Level 143 mmol/L (136-145) Potassium Level 3.2 mmol/L (3.5-5.1) Chloride Level 102 mmol/L (98-107) Carbon Dioxide Level 26 mmol/L (21-32) Anion Gap 15 (6-14) Blood Urea Nitrogen 9 mg/dL (8-26) Creatinine 0.7 mg/dL (0.7-1.3) Estimated GFR (Cockcroft-Gault) 131.0 Glucose Level 97 mg/dL (70-99) Calcium Level 8.5 mg/dL (8.5-10.1) Phosphorus Level 2.9 mg/dL (2.6-4.7) Albumin 2.1 g/dL (3.4-5.0) Medications Current Medications Famotidine (Pepcid Vial) 20 mg 1X ONCE IVP Last administered on 09/01/18at 03:22; Start 09/01/18 at 03:15; Stop 09/01/18 at 03:16; Status DC Potassium Chloride (Klor-Con) 60 meq 1X ONCE PO Last administered on 09/01/18at 04:53; Start 09/01/18 at 04:45; Stop 09/01/18 at 04:46; Status DC Dicyclomine HCl (Bentyl) 10 mg TID PO Last administered on 09/03/18at 07:59; Start 09/01/18 at 09:00 Lisinopril (Prinivil) 10 mg DAILY PO Last administered on 09/03/18at 08:01; Start 09/01/18 at 09:00 Pantoprazole Sodium (Protonix) 40 mg DAILYAC PO Last administered on 09/03/18at 07:59; Start 09/01/18 at 09:00 Polyethylene Glycol (miraLAX PACKET) 17 gm DAILY PO Last administered on 09/03/18at 07:59; Start 09/01/18 at 09:00 Potassium Chloride/Water 100 ml @ 100 mls/hr Q1H IV Last administered on 09/01/18at 23:10; Start 09/01/18 at 09:00; Stop 09/01/18 at 12:59; Status DC Albuterol/ Ipratropium (Duoneb) 3 ml RTQID NEB Last administered on 09/02/18at 20:14; Start 09/01/18 at 12:00; Stop 09/03/18 at 00:40; Status DC Labetalol HCl (Normodyne Iv Push) 10 mg Q4HRS PRN IVP HYPERTENSION, SEE COMMENTS; Start 09/01/18 at 10:00 Ondansetron HCl (Zofran) 4 mg PRN Q6HRS PRN IV NAUSEA/VOMITING; Start 09/02/18 at 07:00; Stop 09/02/18 at 17:01; Status DC Fentanyl Citrate (Fentanyl 2ml Vial) 25 mcg PRN Q5MIN PRN IV MILD PAIN; Start 09/02/18 at 07:00; Stop 09/02/18 at 10:40; Status DC Fentanyl Citrate (Fentanyl 2ml Vial) 50 mcg PRN Q5MIN PRN IV MODERATE TO SEVERE PAIN; Start 09/02/18 at 07:00; Stop 09/02/18 at 10:40; Status DC Morphine Sulfate (Morphine Sulfate) 1 mg PRN Q10MIN PRN IV SEVERE PAIN; Start 09/02/18 at 07:00; Stop 09/02/18 at 17:01; Status DC Ringer's Solution 1,000 ml @ 30 mls/hr Q24H IV Last administered on 09/02/18at 10:30; Start 09/02/18 at 07:00; Stop 09/02/18 at 10:41; Status DC Lidocaine HCl (Xylocaine-Mpf 1% 2ml Vial) 2 ml PRN 1X PRN ID PRIOR TO IV START; Start 09/02/18 at 07:00; Stop 09/02/18 at 10:41; Status DC Hydromorphone HCl (Dilaudid) 0.5 mg PRN Q10MIN PRN IV SEV PAIN, Second choice; Start 09/02/18 at 07:00; Stop 09/02/18 at 17:01; Status DC Prochlorperazine Edisylate (Compazine) 5 mg PACU PRN PRN IV NAUSEA, MRX1; Start 09/02/18 at 07:00; Stop 09/02/18 at 17:01; Status DC Olanzapine (ZyPREXA IM) 10 mg 1X ONCE IM Last administered on 09/01/18at 14:19; Start 09/01/18 at 13:45; Stop 09/01/18 at 13:46; Status DC Vancomycin HCl 1 gm/Sodium Chloride 250 ml @ 250 mls/hr Q12H IV ; Start 09/01/18 at 13:45; Status UNV Vancomycin HCl (Vanco Per Pharmacy) 1 each PRN DAILY PRN MC SEE COMMENTS Last administered on 09/02/18at 10:34; Start 09/01/18 at 14:00 Vancomycin HCl 1.25 gm/Sodium Chloride 250 ml @ 166.667 mls/hr 1X ONCE IV Last administered on 09/01/18at 21:39; Start 09/01/18 at 14:00; Stop 09/01/18 at 15:29; Status DC Olanzapine (ZyPREXA IM) 5 mg PRN BID PRN IM agitation Last administered on 20:24; Start 09/01/18 at 14:00 Risperidone (RisperDAL) 1 mg QHS PO Last administered on 09/02/18 20:26; Start 09/01/18 at 21:00 Ziprasidone (Geodon Im) 20 mg 1X ONCE IM Last administered on 09/01/18at 20:01; Start 09/01/18 at 17:00; Stop 09/01/18 at 17:01; Status DC Vancomycin HCl 750 mg/Sodium Chloride 250 ml @ 250 mls/hr Q24H IV Last administered on 09/02/18at 20:38; Start 09/02/18 at 21:30 Vancomycin HCl (Vancomycin Trough Level) 1 each 1X ONCE MC ; Start 09/03/18 at 21:00; Stop 09/03/18 at 21:01 Fentanyl Citrate (Fentanyl 2ml Vial) 25 mcg PRN Q5MIN PRN IV X 2 DOSES FOR PAIN; Start 09/02/18 at 10:30; Stop 09/02/18 at 14:41; Status DC Fentanyl Citrate (Fentanyl 2ml Vial) 50 mcg PRN Q5MIN PRN IV X 2 DOSES FOR PAIN; Start 09/02/18 at 10:30; Stop 09/02/18 at 14:41; Status DC Ringer's Solution 1,000 ml @ 125 mls/hr Q8H IV ; Start 09/02/18 at 10:29; Stop 09/02/18 at 14:41; Status DC Lidocaine HCl (Xylocaine-Mpf 1% 2ml Vial) 2 ml 1X PRN PRN ID IV START; Start 09/02/18 at 10:30; Stop 09/02/18 at 14:41; Status DC Propofol 20 ml @ As Directed STK-MED ONCE IV ; Start 09/02/18 at 11:13; Stop 09/02/18 at 11:14; Status DC Lidocaine HCl (Lidocaine Pf 2% Vial) 5 ml STK-MED ONCE .ROUTE ; Start 09/02/18 at 11:13; Stop 09/02/18 at 11:14; Status DC Albuterol Sulfate (Ventolin Neb Soln) 2.5 mg PRN QID PRN NEB WHEEZING; Start 09/03/18 at 00:45 Active Scripts Active Reported Zinc Sulfate 220 Mg Tablet 220 Mg PO DAILY Calcium + Vitamin D Tablet (Calcium Carbonate/Vitamin D3) 1 Each Tablet 1 Each PO BID Acidophilus (Lactobacillus Acidophilus) 1 Each Capsule 2 Each PO TID Quetiapine Fumarate 25 Mg Tablet 25 Mg PO BID Lisinopril 10 Mg Tablet 10 Mg PO DAILY Protonix (Pantoprazole Sodium) 20 Mg Tablet.dr 40 Mg DAILY Miralax (Polyethylene Glycol 3350) 17 Gm Powd.pack 1 Pkt PO DAILY Alendronate Sodium 70 Mg Tablet 70 Mg PO WEEKLY Gabapentin 300 Mg Capsule 300 Mg PO TID Vitals/I & O Vital Sign - Last 24 Hours 09/02/18 09/02/18 09/02/18 09/02/18 09:00 10:03 10:27 10:28 Temp 98 98.0 Pulse 83 83 90 Resp 13 12 16 B/P (MAP) 159/75 (103) 169/73 (105) Pulse Ox 97 O2 Delivery Room Air Room Air Room Air 09/02/18 09/02/18 09/02/18 09/02/18 11:36 11:48 12:00 12:08 Temp 98.5 98.5 Pulse 116 114 96 Resp 16 16 22 B/P (MAP) 175/77 158/75 139/73 (95) Pulse Ox 100 100 O2 Delivery Nasal Cannula Room Air Room Air Room Air O2 Flow Rate 4 09/02/18 09/02/18 09/02/18 09/02/18 15:00 15:48 19:00 20:00 Temp 98.8 98.8 Pulse 102 136 Resp 18 18 B/P (MAP) 152/90 (110) 144/78 (100) Pulse Ox 96 O2 Delivery Room Air Room Air Room Air Room Air 09/02/18 09/03/18 09/03/18 09/03/18 22:41 02:56 07:52 08:01 Temp 98.4 98.4 Pulse 116 109 88 Resp 18 18 B/P (MAP) 131/72 (91) 134/78 (96) 123/68 Pulse Ox 92 O2 Delivery Room Air Room Air Room Air Intake and Output 09/02/18 09/02/18 09/03/18 14:59 22:59 06:59 Intake Total 200 ml 610 ml Output Total 1 ml Balance 199 ml 610 ml Nutrition Consultation Dietary Evaluation: Recommendations by RD: Increase Calorie Intake, Protein supplementation, PPN/TPN Comments: REC advance diet to regular as able pending GI status; REC Roman BID and Ensure as tolerated/per pt request If unable to advance diet within 24 - 72 hrs, recommend TPN per followin g AA, 225 g dextrose, 20 g lipids Expected Outcomes/Goals: Diet advancement - not met, goal ongoing Interpretation of weight loss: >20% in 1 year Malnutrition Findings: Weight Status: Emaciated LAKEISHA PHILLIP MD September 03, 2018 08:05
--- NOTE | 2018-09-03 10:34 | RAD ---
EXAM: Chest, single view. HISTORY: Pneumonitis. COMPARISON: 09/19/2018 FINDINGS: A frontal view of the chest is obtained. There is no infiltrate, pleural effusion or pneumothorax. There is a right PICC with the tip in the right atrium. There are few calcified granulomas. The heart is normal in size. There is hyperinflation and hyperlucency likely due to emphysema. There is a chronic nonunited distal left clavicle fracture. IMPRESSION: No acute pulmonary finding. Electronically signed by: Angelita Sawyer MD (09/03/2018 10:31 AM) [facility]
[2018-09-03 11:00] VITALS: BP 133/71
[2018-09-03] MEDS: POTASSIUM CHL 20MEQ PREMIX 50 ML IV SCH ×2 (11:17→13:25)
--- NOTE | 2018-09-03 12:41 | PDOC ---
Infectious Disease Note Vital Sign Vital Signs Vital Signs Date Time Temp Pulse Resp B/P (MAP) Pulse Ox O2 Delivery O2 Flow Rate FiO2 09/03/18 11:37 Room Air 09/03/18 11:00 97.7 107 16 133/71 (91) 93 97.7 09/02/18 11:36 4 Labs Lab Laboratory Tests Test 09/03/18 05:50 White Blood Count 15.9 x10^3/uL (4.0-11.0) Red Blood Count 3.43 x10^6/uL (4.30-5.70) Hemoglobin 8.6 g/dL (13.0-17.5) Hematocrit 27.4 % (39.0-53.0) Mean Corpuscular Volume 80 fL (79-100) Mean Corpuscular Hemoglobin 25 pg (25-35) Mean Corpuscular Hemoglobin Concent 31 g/dL (31-37) Red Cell Distribution Width 19.2 % (11.5-14.5) Platelet Count 231 x10^3/uL (140-400) Neutrophils (%) (Auto) 86 % (31-73) Lymphocytes (%) (Auto) 6 % (24-48) Monocytes (%) (Auto) 7 % (0-9) Eosinophils (%) (Auto) 0 % (0-3) Basophils (%) (Auto) 0 % (0-3) Neutrophils # (Auto) 13.7 x10^3uL (1.8-7.7) Lymphocytes # (Auto) 1.0 x10^3/uL (1.0-4.8) Monocytes # (Auto) 1.2 x10^3/uL (0.0-1.1) Eosinophils # (Auto) 0.0 x10^3/uL (0.0-0.7) Basophils # (Auto) 0.0 x10^3/uL (0.0-0.2) Segmented Neutrophils % 80 % (35-66) Band Neutrophils % 7 % (0-9) Lymphocytes % 6 % (24-48) Atypical Lymphocytes % (Manual) 1 % (0-0) Monocytes % 5 % (0-10) Myelocytes % 1 % (0-0) Platelet Estimate Adequate (ADEQUATE) Polychromasia Present Anisocytosis Present Tear Drop Cells Ovalocytes Few Sodium Level 143 mmol/L (136-145) Potassium Level 3.2 mmol/L (3.5-5.1) Chloride Level 102 mmol/L (98-107) Carbon Dioxide Level 26 mmol/L (21-32) Anion Gap 15 (6-14) Blood Urea Nitrogen 9 mg/dL (8-26) Creatinine 0.7 mg/dL (0.7-1.3) Estimated GFR (Cockcroft-Gault) 131.0 Glucose Level 97 mg/dL (70-99) Calcium Level 8.5 mg/dL (8.5-10.1) Phosphorus Level 2.9 mg/dL (2.6-4.7) Albumin 2.1 g/dL (3.4-5.0) Objective Assessment Leukocytosis Possible Ileus vs partial bowel obstruction on KUB. Last BM 09/01. denies abdominal pain Allergies sulfa and ciprofloxacin Acute anemia s/p PRBCs and EGD COPD Multiple wounds Debility Dementia Plan Plan of Care d/c vancomycin f/u am labs wound care team following D/w nursing Thank you JEFF GARCIA APRN September 03, 2018 12:41
--- NOTE | 2018-09-03 13:18 | PDOC ---
Subjective: Subjective: Patient was seen and examined at bed side. He is not great historian. He reports he is doing "fair" today. Objective: Vital Signs: Laboratory Tests Test 09/03/18 05:50 White Blood Count 15.9 x10^3/uL Red Blood Count 3.43 x10^6/uL Hemoglobin 8.6 g/dL Hematocrit 27.4 % Mean Corpuscular Volume 80 fL Mean Corpuscular Hemoglobin 25 pg Mean Corpuscular Hemoglobin Concent 31 g/dL Red Cell Distribution Width 19.2 % Platelet Count 231 x10^3/uL Neutrophils (%) (Auto) 86 % Lymphocytes (%) (Auto) 6 % Monocytes (%) (Auto) 7 % Eosinophils (%) (Auto) 0 % Basophils (%) (Auto) 0 % Neutrophils # (Auto) 13.7 x10^3uL Lymphocytes # (Auto) 1.0 x10^3/uL Monocytes # (Auto) 1.2 x10^3/uL Eosinophils # (Auto) 0.0 x10^3/uL Basophils # (Auto) 0.0 x10^3/uL Segmented Neutrophils % 80 % Band Neutrophils % 7 % Lymphocytes % 6 % Atypical Lymphocytes % (Manual) 1 % Monocytes % 5 % Myelocytes % 1 % Platelet Estimate Adequate Polychromasia Present Anisocytosis Present Tear Drop Cells Ovalocytes Few Sodium Level 143 mmol/L Potassium Level 3.2 mmol/L Chloride Level 102 mmol/L Carbon Dioxide Level 26 mmol/L Anion Gap 15 Blood Urea Nitrogen 9 mg/dL Creatinine 0.7 mg/dL Estimated GFR (Cockcroft-Gault) 131.0 Glucose Level 97 mg/dL Calcium Level 8.5 mg/dL Phosphorus Level 2.9 mg/dL Albumin 2.1 g/dL Current Medications Medications (Trade) Dose Ordered Sig/Judith Route PRN Reason Start Time Stop Time Status Last Admin Dose Admin Famotidine (Pepcid Vial) 20 mg 1X ONCE IVP 09/01/18 03:15 09/01/18 03:16 DC 09/01/18 03:22 Potassium Chloride (Klor-Con) 60 meq 1X ONCE PO 09/01/18 04:45 09/01/18 04:46 DC 09/01/18 04:53 Dicyclomine HCl (Bentyl) 10 mg TID PO 09/01/18 09:00 09/03/18 07:59 Lisinopril (Prinivil) 10 mg DAILY PO 09/01/18 09:00 09/03/18 08:01 Pantoprazole Sodium (Protonix) 40 mg DAILYAC PO 09/01/18 09:00 09/03/18 07:59 Polyethylene Glycol (miraLAX PACKET) 17 gm DAILY PO 09/01/18 09:00 09/03/18 07:59 Potassium Chloride/Water 100 ml @ 100 mls/hr Q1H IV 09/01/18 09:00 09/01/18 12:59 DC 09/01/18 23:10 Albuterol/ Ipratropium (Duoneb) 3 ml RTQID NEB 09/01/18 12:00 09/03/18 00:40 DC 09/02/18 20:14 Labetalol HCl (Normodyne Iv Push) 10 mg Q4HRS PRN IVP HYPERTENSION, SEE COMMENTS 09/01/18 10:00 Ondansetron HCl (Zofran) 4 mg PRN Q6HRS PRN IV NAUSEA/VOMITING 09/02/18 07:00 09/02/18 17:01 DC Fentanyl Citrate (Fentanyl 2ml Vial) 25 mcg PRN Q5MIN PRN IV MILD PAIN 09/02/18 07:00 09/02/18 10:40 DC Fentanyl Citrate (Fentanyl 2ml Vial) 50 mcg PRN Q5MIN PRN IV MODERATE TO SEVERE PAIN 09/02/18 07:00 09/02/18 10:40 DC Morphine Sulfate (Morphine Sulfate) 1 mg PRN Q10MIN PRN IV SEVERE PAIN 09/02/18 07:00 09/02/18 17:01 DC Ringer's Solution 1,000 ml @ 30 mls/hr Q24H IV 09/02/18 07:00 09/02/18 10:41 DC 09/02/18 10:30 Lidocaine HCl (Xylocaine-Mpf 1% 2ml Vial) 2 ml PRN 1X PRN ID PRIOR TO IV START 09/02/18 07:00 09/02/18 10:41 DC Hydromorphone HCl (Dilaudid) 0.5 mg PRN Q10MIN PRN IV SEV PAIN, Second choice 09/02/18 07:00 09/02/18 17:01 DC Prochlorperazine Edisylate (Compazine) 5 mg PACU PRN PRN IV NAUSEA, MRX1 09/02/18 07:00 09/02/18 17:01 DC Olanzapine (ZyPREXA IM) 10 mg 1X ONCE IM 09/01/18 13:45 09/01/18 13:46 DC 09/01/18 14:19 Vancomycin HCl 1 gm/Sodium Chloride 250 ml @ 250 mls/hr Q12H IV 09/01/18 13:45 UNV Vancomycin HCl (Vanco Per Pharmacy) 1 each PRN DAILY PRN MC SEE COMMENTS 09/01/18 14:00 09/03/18 12:40 DC 09/02/18 10:34 Vancomycin HCl 1.25 gm/Sodium Chloride 250 ml @ 166.667 mls/hr 1X ONCE IV 09/01/18 14:00 09/01/18 15:29 DC 09/01/18 21:39 Olanzapine (ZyPREXA IM) 5 mg PRN BID PRN IM agitation 09/01/18 14:00 09/02/18 20:24 Risperidone (RisperDAL) 1 mg QHS PO 09/01/18 21:00 09/02/18 20:26 Ziprasidone (Geodon Im) 20 mg 1X ONCE IM 09/01/18 17:00 09/01/18 17:01 DC 09/01/18 20:01 Vancomycin HCl 750 mg/Sodium Chloride 250 ml @ 250 mls/hr Q24H IV 09/02/18 21:30 09/03/18 12:40 DC 09/02/18 20:38 Vancomycin HCl (Vancomycin Trough Level) 1 each 1X ONCE MC 09/03/18 21:00 09/03/18 21:01 Fentanyl Citrate (Fentanyl 2ml Vial) 25 mcg PRN Q5MIN PRN IV X 2 DOSES FOR PAIN 09/02/18 10:30 09/02/18 14:41 DC Fentanyl Citrate (Fentanyl 2ml Vial) 50 mcg PRN Q5MIN PRN IV X 2 DOSES FOR PAIN 09/02/18 10:30 09/02/18 14:41 DC Ringer's Solution 1,000 ml @ 125 mls/hr Q8H IV 09/02/18 10:29 09/02/18 14:41 DC Lidocaine HCl (Xylocaine-Mpf 1% 2ml Vial) 2 ml 1X PRN PRN ID IV START 09/02/18 10:30 09/02/18 14:41 DC Propofol 20 ml @ As Directed STK-MED ONCE IV 09/02/18 11:13 09/02/18 11:14 DC Lidocaine HCl (Lidocaine Pf 2% Vial) 5 ml STK-MED ONCE .ROUTE 09/02/18 11:13 09/02/18 11:14 DC Albuterol Sulfate (Ventolin Neb Soln) 2.5 mg PRN QID PRN NEB WHEEZING 09/03/18 00:45 Albuterol/ Ipratropium (Duoneb) 3 ml RTQID NEB 09/03/18 08:15 09/03/18 11:36 Potassium Chloride/Water 50 ml @ 25 mls/hr Q2H IV 09/03/18 11:00 09/03/18 14:59 09/03/18 11:17 Vital Signs Date Time Temp Pulse Resp B/P (MAP) Pulse Ox O2 Delivery O2 Flow Rate FiO2 09/03/18 11:37 Room Air 09/03/18 11:00 97.7 107 16 133/71 (91) 93 97.7 09/02/18 11:36 4 PE: GEN: NAD HEENT: Atraumatic, PERRLA LUNGS: CTAB HEART: RRR, no murmurs ABD: Scaphoid abdomen. Soft with no area of tenderness or guarding. EXTREMITY: Has dressing around both ankle joints. Trace pedal edema. A/P: 83 years old male patient with past medical history of dementia. He has been followed by inpatient GI team for [facility] No overt bleeding. Hgb was 8.6 this morning. Had upper endoscopic exam 09/02 that was reported to be notable for non-erosive gastritis and hiatus hernia. Colonoscopy was "deferred due to patients inability to cooperate for prep" as per inpatient GI team. Concern he may have underlying neoplastic process including colorectal neoplasia. Recommendations - Diet as tolerated. - PPI BID. - Iron studies ( ordered). - Iron supplement therapy. - Imaging of abdomen with CT to rule out partially obstructive mass in distal colon ( in setting of distended air-filled loops of bowel within the upper and mid abdomen on KUB). GI availably for any Q's. Thank you for involving us in the care of this interesting patient. MARYANN GUAMAN MD September 03, 2018 13:18
--- NOTE | 2018-09-03 13:31 | PDOC ---
Infectious Disease Note Vital Sign Vital Signs Vital Signs Date Time Temp Pulse Resp B/P (MAP) Pulse Ox O2 Delivery O2 Flow Rate FiO2 09/03/18 11:37 Room Air 09/03/18 11:00 97.7 107 16 133/71 (91) 93 97.7 09/02/18 11:36 4 Labs Lab Laboratory Tests Test 09/03/18 05:50 White Blood Count 15.9 x10^3/uL (4.0-11.0) Red Blood Count 3.43 x10^6/uL (4.30-5.70) Hemoglobin 8.6 g/dL (13.0-17.5) Hematocrit 27.4 % (39.0-53.0) Mean Corpuscular Volume 80 fL (79-100) Mean Corpuscular Hemoglobin 25 pg (25-35) Mean Corpuscular Hemoglobin Concent 31 g/dL (31-37) Red Cell Distribution Width 19.2 % (11.5-14.5) Platelet Count 231 x10^3/uL (140-400) Neutrophils (%) (Auto) 86 % (31-73) Lymphocytes (%) (Auto) 6 % (24-48) Monocytes (%) (Auto) 7 % (0-9) Eosinophils (%) (Auto) 0 % (0-3) Basophils (%) (Auto) 0 % (0-3) Neutrophils # (Auto) 13.7 x10^3uL (1.8-7.7) Lymphocytes # (Auto) 1.0 x10^3/uL (1.0-4.8) Monocytes # (Auto) 1.2 x10^3/uL (0.0-1.1) Eosinophils # (Auto) 0.0 x10^3/uL (0.0-0.7) Basophils # (Auto) 0.0 x10^3/uL (0.0-0.2) Segmented Neutrophils % 80 % (35-66) Band Neutrophils % 7 % (0-9) Lymphocytes % 6 % (24-48) Atypical Lymphocytes % (Manual) 1 % (0-0) Monocytes % 5 % (0-10) Myelocytes % 1 % (0-0) Platelet Estimate Adequate (ADEQUATE) Polychromasia Present Anisocytosis Present Tear Drop Cells Ovalocytes Few Sodium Level 143 mmol/L (136-145) Potassium Level 3.2 mmol/L (3.5-5.1) Chloride Level 102 mmol/L (98-107) Carbon Dioxide Level 26 mmol/L (21-32) Anion Gap 15 (6-14) Blood Urea Nitrogen 9 mg/dL (8-26) Creatinine 0.7 mg/dL (0.7-1.3) Estimated GFR (Cockcroft-Gault) 131.0 Glucose Level 97 mg/dL (70-99) Calcium Level 8.5 mg/dL (8.5-10.1) Phosphorus Level 2.9 mg/dL (2.6-4.7) Albumin 2.1 g/dL (3.4-5.0) Objective Assessment Leukocytosis Chills Possible Ileus vs partial bowel obstruction on KUB. Last BM 09/01. denies abdominal pain Allergies sulfa and ciprofloxacin Acute anemia s/p PRBCs and EGD COPD Multiple wounds Debility Dementia Plan Plan of Care d/c vancomycin Dose Zosyn Set BC and UA f/u am labs wound care team following D/w nursing Thank you [phone] Patient seen, examined, I agree with above Assessment and plan by [facility]. JEFF GARCIA APRN September 03, 2018 13:31 JOEL CARBAJAL MD September 03, 2018 13:56
[2018-09-03] MEDS: PIPERACILLIN/TAZOBACTAM 3.375 GM in IV NORMAL SALINE 50ML 50 ML IV SCH ×4 (14:00→23:43)
--- NOTE | 2018-09-03 14:18 | CONS ---
DATE OF CONSULTATION: 09/03/2018 REFERRING PHYSICIAN: Dr. Blackburn. REASON FOR CONSULTATION: Pneumonitis. HISTORY OF PRESENT ILLNESS: This patient is an 83-year-old male who is a detention resident with dementia. He presented with complaints of epigastric abdominal pain. He was found to be anemic with a hemoglobin of 6.6. He had a blood transfusion and underwent an EGD, which revealed a hiatal hernia and nonerosive gastritis. GI service is following. A chest x-ray on admission showed COPD. No focal consolidation, pneumothorax or pleural effusion noted. However, superimposed atypical/viral infection not ruled out. He was afebrile with elevated white blood cell count of 14,000. He was dosed with vancomycin for possible pneumonia. Today's chest x-ray showed no acute pulmonary findings. The patient is complaining of chills. He remains afebrile. He says his breathing and his stomach are just fine. He has not required any supplemental oxygen. He denies cough, shortness of air or chest discomfort. He had a Barbour catheter that was recently removed. He is nonambulatory and has multiple wounds. His last bowel movement was on 09/01 per RN. PAST MEDICAL HISTORY: Dementia, hypertension, COPD, gastroesophageal reflux disease, history of prostate cancer, urinary incontinence, osteoporosis, arthritis, back pain, affective disorder, anxiety, hyperlipidemia, peripheral neuropathy, constipation. PAST SURGICAL HISTORY: Prostatectomy and lower back surgery. FAMILY HISTORY: Noncontributory. SOCIAL HISTORY: The patient is a detention resident. 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 ALLERGIES: SULFA AND CIPROFLOXACIN, REACTION UNKNOWN. MEDICATIONS: Vancomycin. Other medications are available and have been reviewed on the JUL. REVIEW OF SYSTEMS: Per HPI, otherwise all other review of systems is negative. PHYSICAL EXAMINATION: VITAL SIGNS: Temperature is 97.7, blood pressure 133/71, heart rate 107, respiratory rate 16, pulse oximetry is 93% on room air. BMI 14. GENERAL: The patient is slightly propped up in bed, alert with several layers of blankets on. HEENT: Pupils equally round. Normal conjunctivae. Oral cavity: Pharynx dry. NECK: Supple. LUNGS: Clear to auscultation. HEART: S1, S2. ABDOMEN: Nondistended, soft and nontender with bowel sounds present. EXTREMITIES: No gross edema or cyanosis. Loss of muscle mass. SKIN: Warm without generalized rash. He has multiple wounds (refer to wound care notes for further description). NEUROLOGIC: Alert, oriented to self. He says the year is 2000 and that he is at the [facility]. RUE--PICC without signs of any complications. LABORATORY DATA: Today's WBC 15.9 from 11.1, hemoglobin 8.6, platelets 231,000; segs 80%, bands 7%. Sodium 143, potassium 3.2, creatinine 0.7, BUN 9. Albumin 2.1, total bilirubin 0.4, AST 11, ALT less than 6. Procalcitonin 1.24. No cultures. IMAGING: Chest x-ray per HPI. KUB from 09/01 showed distended air filled loops of bowel within the upper and mid abdomen. The differential includes ileus and distal partial obstruction. There was gas and stool within the colon. IMPRESSION: 1. Leukocytosis. 2. Chills. 3. Possible ileus versus partial bowel obstruction on KUB. His last bowel movement was on 09/01. 4. ALLERGIES TO SULFA AND CIPROFLOXACIN, reactions unknown. 5. Acute anemia status post blood transfusion and esophagogastroduodenoscopy. 6. Chronic obstructive pulmonary disease. 7. Multiple wounds. 8. Debility. 9. Dementia. PLAN: Discontinue the vancomycin and add Zosyn. Check a set of blood cultures and UA and culture if indicated. Labs have been ordered for the morning. Wound care team is following. Thank you, Dr. Blackburn, for asking us to participate in this patient's care. Should you have further questions or concerns, please call. The patient was seen, examined and plan of care implemented by Dr. Joel Blankenship. JOEL BLANKENSHIP MD DR: RONALD/shahida JOB#: [id number] / [id number]
[2018-09-03] MEDS ORDERED: ALTEPLASE 1MG SYRINGE. INT CAT ONE (14:30)
[2018-09-03 15:00] VITALS: BP 126/68
[2018-09-03] MEDS ORDERED: CONTRAST GIVEN. MC PRN (17:00)
[2018-09-03] MEDS ORDERED: IOHEXOL 300 MG/ML 100ML VIAL. IV ONE (17:00)
[2018-09-03 19:00] VITALS: BP 131/75
--- NOTE | 2018-09-03 19:10 | RAD ---
EXAM: Abdomen and pelvis CT with intravenous contrast. HISTORY: Colon mass. TECHNIQUE: Computed tomographic images of the abdomen and pelvis were obtained following the administration of intravenous contrast. Multiplanar reformatting was performed. *One or more of the following individualized dose reduction techniques were utilized for this examination: 1. Automated exposure control. 2. Adjustment of the mA and/or kV according to patient size. 3. Use of iterative reconstruction technique. COMPARISON: None. FINDINGS: Evaluation of the lower thorax demonstrates masslike consolidation within the right lung base measuring approximately 7.0 cm in maximum dimension. There are superimposed left infrahilar partially consolidated and groundglass opacities and there is bronchial wall thickening. There is a small right pleural effusion. No hepatic lesion is seen. The gallbladder, pancreas, spleen, the adrenal glands are unremarkable. There is mucosal thickening involving the gastric pylorus, likely due to relative under distention. There are multiple renal cysts. No solid renal lesion is seen. There is a large amount of stool within the colon. There is segmental mucosal thickening involving the rectum and rectosigmoid junction. There is no evidence of small bowel obstruction. There is no evidence of free air. There are multiple nonspecific lymph nodes throughout the root of the mesentery. There is no retroperitoneal lymphadenopathy. There is diffuse mesenteric stranding and mild body wall edema. 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 There are laminectomy changes involving the lumbosacral junction. There are bridging anterior osteophytes throughout the visualized thoracic spine the majority of the lumbar spine. There are degenerative changes primarily at L5-S1, contributing to foraminal stenosis. There are surgical clips within the pelvis and inguinal regions likely due to prostatectomy and lymph node dissection. IMPRESSION: 1. Segmental mucosal thickening involving the rectum and rectosigmoid junction. This may be due to colitis/proctitis. The possibility of neoplasm is not excluded. Correlate with colonoscopy findings. 2. Large amount stool within the colon, consistent with constipation. 3. Masslike consolidation within the right lower lobe with adjacent right infrahilar partially consolidated and groundglass infiltrate. This may be infectious or neoplastic in etiology. There is a superimposed small right pleural effusion and lower lobe bronchial wall thickening. 4. Mild mucosal thickening involving the pylorus, likely due to underdistention. 5. Renal cysts. 6. Mesenteric and body wall fatty stranding likely due to edema. 7. Nonspecific lymph nodes within the root of the mesentery. Electronically signed by: Angelita Sawyer MD (09/03/2018 7:07 PM) [facility]
[2018-09-03] MEDS: risperiDONE 1 MG TABLET. PO SCH (20:48)
[2018-09-03 23:00] VITALS: BP 134/71
[2018-09-04 03:00] VITALS: BP 136/69
[2018-09-04] MEDS: PIPERACILLIN/TAZOBACTAM 3.375 GM in IV NORMAL SALINE 50ML 50 ML IV SCH ×4 (05:13→23:10)
[2018-09-04 07:00] VITALS: BP 127/75
[2018-09-04] MEDS: IPRATRPIUM/ALBUTEROL 0.5/2.5MG 3 ML NEBU. NEB SCH ×4 (07:20→20:28)
--- NOTE | 2018-09-04 10:17 | PDOC ---
PROGRESS NOTES Chief Complaint Chief Complaint A/P: Acute anemia - Hb 6.6 s/p 1u PRBC, f/u H&H daily. EGD 5/3 Hypokalemia - Replaced, monitor Chest pain - likely demand ischemia from acute anemia, cont telemetry COPD - will place on nebulizer treatments Leukocytosis - meets SIRS criteria, sepsis with pneumonia as source - high risk for gram negative, HCAP from SNF, will check procalcitonin and treat accordingly - vanco and zosyn Gen weakness, bl legs - SNF resident, will have PT/OT work with him when he is recovered more Chronic lower back pain - will cont pain medications prn HTN - cont home meds GERD - PPI Dementia with behavioral disorder - light during day, redirection. Zyprexa IM prn, risperidal at night Gluteal decubitus ulcers - wound care following FEN - Cardiac diet if ok with GI PPX - SCDs, PPI DNR/DNI Dispo - 2 midnights inpatient d/c vancomycin Dose Zosyn 43 min pt exam, chart review, > 50% of time spent with exam, chart review, pt care coordination History of Present Illness History of Present Illness 83 yo M w/ PMHx chronic back pain, prostate ca history, dementia is brought to ED by EMS from [facility] due to chief complaint of epigastric abdominal pain started about midnight. Patient denies bleeding from his rectum. Potassium 2.4 with EKG showing long QT interval and incomplete RBBB. WBC 14 with CXR showing possible infection and COPD. Hb noted to be 6.6, was admitted to the ICU for concern for possible upper GI bleed and gluteal pressure ulcers. Had a difficult day yesterday, very agitated, required redirection, otri kwong. Pulled out his IV prior to blood and K infusions, required PICC insertion. Slept ok after that. Hb 7.6 and K 3.9 this morning. He is still somewhat agitated, yelling at nursing staff, refusing most care, especially refusing to be turned Q2hrs. special bed ordered for pressure ulcers. severe protein-caloric malnutrition Plan: EGD Operative Note EGD Meds propofol per anesthesia Pre-op dx anemia Post-o dx hiatal hernia non-erosive gastritis Plan advance diet iron supplements colonoscopy deferred due to patients inability to cooperate for prep telemetry floor Vitals Vitals Vital Signs Date Time Temp Pulse Resp B/P (MAP) Pulse Ox O2 Delivery O2 Flow Rate FiO2 09/04/18 07:00 100 18 127/75 (92) 92 Room Air 09/03/18 23:00 98.3 98.3 Physical Exam General: Alert, Cooperative, No acute distress, mild distress, Other Heart: Regular rate, No murmurs Lungs: Clear Abdomen: Normal bowel sounds, Soft, No tenderness, No hepatosplenomegaly, No masses, Other (very thin) Extremities: No clubbing, No cyanosis, No edema, Normal pulses, No tenderness/swelling Skin: No rashes, No significant lesion, Other (Gluteal breakdown bilaterally) Comment Review of Relevant I have reviewed the following items minor (where applicable) has been applied. Labs Laboratory Tests Test 09/03/18 05:30 09/03/18 05:50 Nasal Screen MRSA (PCR) Negative (Negative) White Blood Count 15.9 x10^3/uL (4.0-11.0) Red Blood Count 3.43 x10^6/uL (4.30-5.70) Hemoglobin 8.6 g/dL (13.0-17.5) Hematocrit 27.4 % (39.0-53.0) Mean Corpuscular Volume 80 fL (79-100) Mean Corpuscular Hemoglobin 25 pg (25-35) Mean Corpuscular Hemoglobin Concent 31 g/dL (31-37) Red Cell Distribution Width 19.2 % (11.5-14.5) Platelet Count 231 x10^3/uL (140-400) Neutrophils (%) (Auto) 86 % (31-73) Lymphocytes (%) (Auto) 6 % (24-48) Monocytes (%) (Auto) 7 % (0-9) Eosinophils (%) (Auto) 0 % (0-3) Basophils (%) (Auto) 0 % (0-3) Neutrophils # (Auto) 13.7 x10^3uL (1.8-7.7) Lymphocytes # (Auto) 1.0 x10^3/uL (1.0-4.8) Monocytes # (Auto) 1.2 x10^3/uL (0.0-1.1) Eosinophils # (Auto) 0.0 x10^3/uL (0.0-0.7) Basophils # (Auto) 0.0 x10^3/uL (0.0-0.2) Segmented Neutrophils % 80 % (35-66) Band Neutrophils % 7 % (0-9) Lymphocytes % 6 % (24-48) Atypical Lymphocytes % (Manual) 1 % (0-0) Monocytes % 5 % (0-10) Myelocytes % 1 % (0-0) Platelet Estimate Adequate (ADEQUATE) Polychromasia Present Anisocytosis Present Tear Drop Cells Ovalocytes Few Sodium Level 143 mmol/L (136-145) Potassium Level 3.2 mmol/L (3.5-5.1) Chloride Level 102 mmol/L (98-107) Carbon Dioxide Level 26 mmol/L (21-32) Anion Gap 15 (6-14) Blood Urea Nitrogen 9 mg/dL (8-26) Creatinine 0.7 mg/dL (0.7-1.3) Estimated GFR (Cockcroft-Gault) 131.0 Glucose Level 97 mg/dL (70-99) Calcium Level 8.5 mg/dL (8.5-10.1) Phosphorus Level 2.9 mg/dL (2.6-4.7) Albumin 2.1 g/dL (3.4-5.0) Medications Current Medications Famotidine (Pepcid Vial) 20 mg 1X ONCE IVP Last administered on 09/01/18at 03:22; Start 09/01/18 at 03:15; Stop 09/01/18 at 03:16; Status DC Potassium Chloride (Klor-Con) 60 meq 1X ONCE PO Last administered on 09/01/18at 04:53; Start 09/01/18 at 04:45; Stop 09/01/18 at 04:46; Status DC Dicyclomine HCl (Bentyl) 10 mg TID PO Last administered on 09/03/18at 20:48; Start 09/01/18 at 09:00 Lisinopril (Prinivil) 10 mg DAILY PO Last administered on 09/03/18at 08:01; Start 09/01/18 at 09:00 Pantoprazole Sodium (Protonix) 40 mg DAILYAC PO Last administered on 09/03/18at 07:59; Start 09/01/18 at 09:00 Polyethylene Glycol (miraLAX PACKET) 17 gm DAILY PO Last administered on 5/4/19at 07:59; Start 09/01/18 at 09:00 Potassium Chloride/Water 100 ml @ 100 mls/hr Q1H IV Last administered on 09/01/18at 23:10; Start 09/01/18 at 09:00; Stop 09/01/18 at 12:59; Status DC Albuterol/ Ipratropium (Duoneb) 3 ml RTQID NEB Last administered on 09/02/18at 20:14; Start 09/01/18 at 12:00; Stop 09/03/18 at 00:40; Status DC Labetalol HCl (Normodyne Iv Push) 10 mg Q4HRS PRN IVP HYPERTENSION, SEE COMMENT S; Start 09/01/18 at 10:00 Ondansetron HCl (Zofran) 4 mg PRN Q6HRS PRN IV NAUSEA/VOMITING; Start 09/02/18 at 07:00; Stop 09/02/18 at 17:01; Status DC Fentanyl Citrate (Fentanyl 2ml Vial) 25 mcg PRN Q5MIN PRN IV MILD PAIN; Start 09/02/18 at 07:00; Stop 09/02/18 at 10:40; Status DC Fentanyl Citrate (Fentanyl 2ml Vial) 50 mcg PRN Q5MIN PRN IV MODERATE TO SEVERE PAIN; Start 09/02/18 at 07:00; Stop 09/02/18 at 10:40; Status DC Morphine Sulfate (Morphine Sulfate) 1 mg PRN Q10MIN PRN IV SEVERE PAIN; Start 09/02/18 at 07:00; Stop 09/02/18 at 17:01; Status DC Ringer's Solution 1,000 ml @ 30 mls/hr Q24H IV Last administered on 09/02/18at 10:30; Start 09/02/18 at 07:00; Stop 09/02/18 at 10:41; Status DC Lidocaine HCl (Xylocaine-Mpf 1% 2ml Vial) 2 ml PRN 1X PRN ID PRIOR TO IV START; Start 09/02/18 at 07:00; Stop 09/02/18 at 10:41; Status DC Hydromorphone HCl (Dilaudid) 0.5 mg PRN Q10MIN PRN IV SEV PAIN, Second choice; Start 09/02/18 at 07:00; Stop 09/02/18 at 17:01; Status DC Prochlorperazine Edisylate (Compazine) 5 mg PACU PRN PRN IV NAUSEA, MRX1; Start 09/02/18 at 07:00; Stop 09/02/18 at 17:01; Status DC Olanzapine (ZyPREXA IM) 10 mg 1X ONCE IM Last administered on 09/01/18at 14:19; Start 09/01/18 at 13:45; Stop 09/01/18 at 13:46; Status DC Vancomycin HCl 1 gm/Sodium Chloride 250 ml @ 250 mls/hr Q12H IV ; Start 09/01/18 at 13:45; Status UNV Vancomycin HCl (Vanco Per Pharmacy) 1 each PRN DAILY PRN MC SEE COMMENTS Last administered on 09/02/18at 10:34; Start 09/01/18 at 14:00; Stop 09/03/18 at 12:40; Status DC Vancomycin HCl 1.25 gm/Sodium Chloride 250 ml @ 166.667 mls/hr 1X ONCE IV Last administered on 09/01/18at 21:39; Start 09/01/18 at 14:00; Stop 09/01/18 at 15:29; Status DC Olanzapine (ZyPREXA IM) 5 mg PRN BID PRN IM agitation Last administered on 09/02/18at 20:24; Start 09/01/18 at 14:00 Risperidone (RisperDAL) 1 mg QHS PO Last administered on 09/03/18at 20:48; Start 09/01/18 at 21:00 Ziprasidone (Geodon Im) 20 mg 1X ONCE IM Last administered on 09/01/18at 20:01; Start 09/01/18 at 17:00; Stop 09/01/18 at 17:01; Status DC Vancomycin HCl 750 mg/Sodium Chloride 250 ml @ 250 mls/hr Q24H IV Last administered on 09/02/18at 20:38; Start 09/02/18 at 21:30; Stop 09/03/18 at 12:40; Status DC Vancomycin HCl (Vancomycin Trough Level) 1 each 1X ONCE MC ; Start 09/03/18 at 21:00; Stop 09/03/18 at 21:00; Status DC Fentanyl Citrate (Fentanyl 2ml Vial) 25 mcg PRN Q5MIN PRN IV X 2 DOSES FOR PAIN; Start 09/02/18 at 10:30; Stop 09/02/18 at 14:41; Status DC Fentanyl Citrate (Fentanyl 2ml Vial) 50 mcg PRN Q5MIN PRN IV X 2 DOSES FOR PAIN; Start 09/02/18 at 10:30; Stop 09/02/18 at 14:41; Status DC Ringer's Solution 1,000 ml @ 125 mls/hr Q8H IV ; Start 09/02/18 at 10:29; Stop 09/02/18 at 14:41; Status DC Lidocaine HCl (Xylocaine-Mpf 1% 2ml Vial) 2 ml 1X PRN PRN ID IV START; Start 09/02/18 at 10:30; Stop 09/02/18 at 14:41; Status DC Propofol 20 ml @ As Directed STK-MED ONCE IV ; Start 09/02/18 at 11:13; Stop 09/02/18 at 11:14; Status DC Lidocaine HCl (Lidocaine Pf 2% Vial) 5 ml STK-MED ONCE .ROUTE ; Start 09/02/18 at 11:13; Stop 09/02/18 at 11:14; Status DC Albuterol Sulfate (Ventolin Neb Soln) 2.5 mg PRN QID PRN NEB WHEEZING; Start 09/03/18 at 00:45 Albuterol/ Ipratropium (Duoneb) 3 ml RTQID NEB Last administered on 09/03/18at 20:00; Start 09/03/18 at 08:15 Potassium Chloride/Water 50 ml @ 25 mls/hr Q2H IV Last administered on 09/03/18at 13:25; Start 09/03/18 at 11:00; Stop 09/03/18 at 14:59; Status DC Piperacillin Sod/ Tazobactam Sod 3.375 gm/Sodium Chloride 50 ml @ 100 mls/hr Q6HRS IV Last administered on 09/04/18at 05:13; Start 09/03/18 at 14:00 Alteplase, Recombinant (Cathflo For Central Catheter Clearance) 1 mg 1X ONCE INT CAT Last administered on 09/03/18at 17:01; Start 09/03/18 at 14:30; Stop 09/03/18 at 14:31; Status DC Iohexol (Omnipaque 300 Mg/ml) 75 ml 1X ONCE IV Last administered on 09/03/18at 17:30; Start 09/03/18 at 17:00; Stop 09/03/18 at 17:01; Status DC Info (CONTRAST GIVEN -- Rx MONITORING) 1 each PRN DAILY PRN MC SEE COMMENTS; Start 09/03/18 at 17:00; Stop 09/05/18 at 16:59 Active Scripts Active Reported Zinc Sulfate 220 Mg Tablet 220 Mg PO DAILY Calcium + Vitamin D Tablet (Calcium Carbonate/Vitamin D3) 1 Each Tablet 1 Each PO BID Acidophilus (Lactobacillus Acidophilus) 1 Each Capsule 2 Each PO TID Quetiapine Fumarate 25 Mg Tablet 25 Mg PO BID Lisinopril 10 Mg Tablet 10 Mg PO DAILY Protonix (Pantoprazole Sodium) 20 Mg Tablet.dr 40 Mg DAILY Miralax (Polyethylene Glycol 3350) 17 Gm Powd.pack 1 Pkt PO DAILY Alendronate Sodium 70 Mg Tablet 70 Mg PO WEEKLY Gabapentin 300 Mg Capsule 300 Mg PO TID Vitals/I & O Vital Sign - Last 24 Hours 09/03/18 09/03/18 09/03/18 09/03/18 11:00 11:37 15:00 19:00 Temp 97.7 98.8 97.5 97.7 98.8 97.5 Pulse 107 113 108 Resp 16 18 14 B/P (MAP) 133/71 (91) 126/68 (87) 131/75 (93) Pulse Ox 93 97 97 O2 Delivery Room Air Room Air Room Air 09/03/18 09/03/18 09/03/18 09/04/18 19:46 20:02 23:00 03:00 Temp 98.3 98.3 Pulse 112 84 Resp 16 14 B/P (MAP) 134/71 (92) 136/69 (91) Pulse Ox 94 98 88 O2 Delivery Room Air Room Air Room Air Room Air 09/04/18 07:00 Pulse 100 Resp 18 B/P (MAP) 127/75 (92) Pulse Ox 92 O2 Delivery Room Air Intake and Output 09/03/18 09/03/18 09/04/18 15:00 23:00 07:00 Intake Total 370 ml 100 ml 240 ml Output Total 0 ml Balance 370 ml 100 ml 240 ml Nutrition Consultation Dietary Evaluation: Recommendations by RD: Increase Calorie Intake, Protein supplementation, PP N/TPN Comments: REC advance diet to regular as able pending GI status; REC Roman BID and Ensure as tolerated/per pt request If unable to advance diet within 24 - 72 hrs, recommend TPN per followin g AA, 225 g dextrose, 20 g lipids Expected Outcomes/Goals: Diet advancement - not met, goal ongoing Interpretation of weight loss: >20% in 1 year Malnutrition Findings: Weight Status: Emaciated LAKEISHA PHILLIP MD September 04, 2018 10:17
[2018-09-04 11:00] VITALS: BP 152/50
[2018-09-04] MEDS: POTASSIUM CHL 20MEQ PREMIX 50 ML IV SCH ×2 (13:00→13:22)
[2018-09-04] MEDS: PANTOPRAZOLE 40 MG TABLET.DR. PO SCH (13:16)
[2018-09-04] MEDS: POLYETHYLENE GLYCOL 3350 17 GM PACKET. PO SCH (13:16)
[2018-09-04] MEDS: DICYCLOMINE HCL 10 MG CAPSULE PO SCH ×3 (13:16→19:56)
[2018-09-04] MEDS: LISINOPRIL 10 MG TABLET PO SCH (13:17)
--- NOTE | 2018-09-04 14:13 | PDOC ---
Infectious Disease Note Subjective Subjective Refusing blood draws Says he doesn't want his blood drained. Feels cold No fevers or aches ROS ROS per HPI Vital Sign Vital Signs Vital Signs Date Time Temp Pulse Resp B/P (MAP) Pulse Ox O2 Delivery O2 Flow Rate FiO2 09/04/18 13:17 92 152/50 09/04/18 11:00 97.9 16 93 Room Air 97.9 Physical Exam PHYSICAL EXAM GENERAL: alert with several layers of blankets; on [place] bed HEENT: Pupils equally round. Normal conjunctivae. Oral cavity: Pharynx dry. NECK: Supple. LUNGS: Clear to auscultation. HEART: S1, S2. ABDOMEN: Nondistended, soft and nontender with bowel sounds present. EXTREMITIES: No gross edema or cyanosis. Loss of muscle mass. SKIN: Warm without generalized rash. He has multiple wounds (refer to wound care notes for further description). NEUROLOGIC: Alert, oriented to self. RUE--PICC without signs of any complications. Labs Lab CT A/P 1. Segmental mucosal thickening involving the rectum and rectosigmoid junction. This may be due to colitis/proctitis. The possibility of neoplasm is not excluded. Correlate with colonoscopy findings. 2. Large amount stool within the colon, consistent with constipation. 3. Masslike consolidation within the right lower lobe with adjacent right infrahilar partially consolidated and groundglass infiltrate. This may be infectious or neoplastic in etiology. There is a superimposed small right pleural effusion and lower lobe bronchial wall thickening. 4. Mild mucosal thickening involving the pylorus, likely due to underdistention. 5. Renal cysts. 6. Mesenteric and body wall fatty stranding likely due to edema. 7. Nonspecific lymph nodes within the root of the mesentery. Objective Assessment Leukocytosis Chills Possible Ileus vs partial bowel obstruction on KUB. Last BM 09/01. denies abdominal pain Allergies sulfa and ciprofloxacin Acute anemia s/p PRBCs and EGD COPD Multiple wounds Debility Dementia Plan Plan of Care Continue Zosyn pending UA not collected Refusing labs wound care team following D/w nursing Pt seen and examined Labs and micro data reviewed Agree with above A/P per STITCHER OPERATOR JEFF GARCIA APRN September 04, 2018 14:13 JOEL CARBAJAL MD September 04, 2018 16:29
[2018-09-04 14:51] VITALS: BP 130/71
[2018-09-04 19:00] VITALS: BP 112/63
[2018-09-04] MEDS: risperiDONE 1 MG TABLET. PO SCH (19:56)
[2018-09-04] MEDS: LACTOBACILLUS RHAMNOSUS GG 1 CAPSULE. PO SCH (19:57)
[2018-09-04] MEDS: OLANZapine IM 10 MG VIAL. IM PRN (19:59)
[2018-09-04 20:11] LABS: BASO % 0 % (0-3); EOS % 0 % (0-3); HEMATOCRIT 23.9 % (39.0-53.0); HEMOGLOBIN 7.5 g/dL (13.0-17.5); LYMPH # 1.2 x10^3/uL (1.0-4.8); LYMPH % 8 % (24-48); MEAN CORPUSCULAR HEMOGLOBIN 25 pg (25-35); MEAN CORPUSCULAR HGB CONC 31 g/dL (31-37); MEAN CORPUSCULAR VOLUME 81 fL (79-100); MONO % 7 % (0-9); NEUT # 13.6 x10^3uL (1.8-7.7); NEUT % 86 % (31-73); PLATELET COUNT 281 x10^3/uL (140-400); RED BLOOD COUNT 2.97 x10^6/uL (4.30-5.70); RED CELL DISTRIBUTION WIDTH 20.4 % (11.5-14.5)
[2018-09-04 20:24] LABS: ALBUMIN 1.8 g/dL (3.4-5.0); CALCIUM 8.1 mg/dL (8.5-10.1); CREATININE 0.9 mg/dL (0.7-1.3); PHOSPHORUS 2.7 mg/dL (2.6-4.7); POTASSIUM 4.2 mmol/L (3.5-5.1)
[2018-09-04 23:00] VITALS: BP 113/61
[2018-09-05 03:00] VITALS: BP 112/58
[2018-09-05] MEDS: PIPERACILLIN/TAZOBACTAM 3.375 GM in IV NORMAL SALINE 50ML 50 ML IV SCH ×4 (05:08→23:53)
[2018-09-05 07:00] VITALS: BP 136/69
[2018-09-05] MEDS: IPRATRPIUM/ALBUTEROL 0.5/2.5MG 3 ML NEBU. NEB SCH ×4 (08:30→19:48)
--- NOTE | 2018-09-05 09:59 | PDOC ---
Infectious Disease Note Subjective Subjective Comfortable Kristian pain/SOA/upset stomach No fevers ROS ROS per HPI Vital Sign Vital Signs Vital Signs Date Time Temp Pulse Resp B/P (MAP) Pulse Ox O2 Delivery O2 Flow Rate FiO2 09/05/18 07:00 98.7 89 14 136/69 (91) 97 Room Air 98.7 09/04/18 08:00 4.0 Physical Exam PHYSICAL EXAM GENERAL: alert with several layers of blankets; on [place] bed HEENT: Oral cavity/pharynx dry. LUNGS: Clear to auscultation. HEART: S1, S2. ABDOMEN: Nondistended, soft and nontender with bowel sounds present. EXTREMITIES: No gross edema or cyanosis. Loss of muscle mass. SKIN: Warm without generalized rash. Multiple wounds NEUROLOGIC: Alert, oriented to self. RUE--PICC bandaged Labs Lab Laboratory Tests Test 09/04/18 19:45 White Blood Count 16.0 x10^3/uL (4.0-11.0) Red Blood Count 2.97 x10^6/uL (4.30-5.70) Hemoglobin 7.5 g/dL (13.0-17.5) Hematocrit 23.9 % (39.0-53.0) Mean Corpuscular Volume 81 fL (79-100) Mean Corpuscular Hemoglobin 25 pg (25-35) Mean Corpuscular Hemoglobin Concent 31 g/dL (31-37) Red Cell Distribution Width 20.4 % (11.5-14.5) Platelet Count 281 x10^3/uL (140-400) Neutrophils (%) (Auto) 86 % (31-73) Lymphocytes (%) (Auto) 8 % (24-48) Monocytes (%) (Auto) 7 % (0-9) Eosinophils (%) (Auto) 0 % (0-3) Basophils (%) (Auto) 0 % (0-3) Neutrophils # (Auto) 13.6 x10^3uL (1.8-7.7) Lymphocytes # (Auto) 1.2 x10^3/uL (1.0-4.8) Monocytes # (Auto) 1.0 x10^3/uL (0.0-1.1) Eosinophils # (Auto) 0.0 x10^3/uL (0.0-0.7) Basophils # (Auto) 0.0 x10^3/uL (0.0-0.2) Sodium Level 144 mmol/L (136-145) Potassium Level 4.2 mmol/L (3.5-5.1) Chloride Level 106 mmol/L (98-107) Carbon Dioxide Level 31 mmol/L (21-32) Anion Gap 7 (6-14) Blood Urea Nitrogen 13 mg/dL (8-26) Creatinine 0.9 mg/dL (0.7-1.3) Estimated GFR (Cockcroft-Gault) 98.0 Glucose Level 103 mg/dL (70-99) Calcium Level 8.1 mg/dL (8.5-10.1) Phosphorus Level 2.7 mg/dL (2.6-4.7) Iron Level 12 ug/dL (65-175) Total Iron Binding Capacity 74 ug/dL (250-450) Iron Saturation 16 % (15-34) Ferritin 637 ng/mL (26-388) Albumin 1.8 g/dL (3.4-5.0) 1. Segmental mucosal thickening involving the rectum and rectosigmoid junction. This may be due to colitis/proctitis. The possibility of neoplasm is not excluded. Correlate with colonoscopy findings. 2. Large amount stool within the colon, consistent with constipation. 3. Masslike consolidation within the right lower lobe with adjacent right infrahilar partially consolidated and groundglass infiltrate. This may be infectious or neoplastic in etiology. There is a superimposed small right pleural effusion and lower lobe bronchial wall thickening. 4. Mild mucosal thickening involving the pylorus, likely due to underdistention. 5. Renal cysts. 6. Mesenteric and body wall fatty stranding likely due to edema. 7. Nonspecific lymph nodes within the root of the mesentery. Objective Assessment Leukocytosis Chills Mass-like consolidation RLL on CT Possible Ileus vs partial bowel obstruction on KUB. f/u CT showed mucosal thickening involving the rectum and rectosigmoid junction. This may be due to colitis/proctitis. Constipation - last BM 5/4 Allergies sulfa and ciprofloxacin Acute anemia s/p PRBCs and EGD COPD Multiple wounds Debility Dementia Plan Plan of Care Continue Zosyn refused BC UA not collected wound care team following Patient seen, examined, I agree with above. Assessment and plan was formulated with SUPPORT CLERK. JEFF GARCIA APRN September 05, 2018 09:59 JOEL CARBAJAL MD September 05, 2018 12:23
--- NOTE | 2018-09-05 10:13 | PDOC ---
PROGRESS NOTES Chief Complaint Chief Complaint A/P: Acute anemia - Hb 6.6 s/p 1u PRBC, f/u H&H daily. EGD 5/3 Hypokalemia - Replaced, monitor Chest pain - likely demand ischemia from acute anemia, cont telemetry COPD - will place on nebulizer treatments Leukocytosis - meets SIRS criteria, sepsis with pneumonia as source - high risk for gram negative, HCAP from SNF, will check procalcitonin and treat accordingly - vanco and zosyn Gen weakness, bl legs - SNF resident, will have PT/OT work with him when he is recovered more Chronic lower back pain - will cont pain medications prn HTN - cont home meds GERD - PPI Dementia with behavioral disorder - light during day, redirection. Zyprexa IM prn, risperidal at night Gluteal decubitus ulcers - wound care following Mass-like consolidation RLL on CT Segmental mucosal thickening involving the rectum and rectosigmoid junction. This may be due to colitis/proctitis. The possibility of neoplasm is not excluded. Correlate with colonoscopy findings. Large amount stool within the colon, consistent with constipation. Masslike consolidation within the right lower lobe with adjacent right infrahilar partially consolidated and groundglass infiltrate. This may be infectious or neoplastic in etiology. There is a superimposed small right pleural effusion and lower lobe bronchial wall thickening. FEN - Cardiac diet if ok with GI PPX - SCDs, PPI DNR/DNI Dispo - 2 midnights inpatient d/c vancomycin Dose Zosyn CONSULT PALLIATIVE CARE CONSULT PULM 43 min pt exam, chart review, > 50% of time spent with exam, chart review, pt ca re coordination History of Present Illness History of Present Illness 83 yo M w/ PMHx chronic back pain, prostate ca history, dementia is brought to ED by EMS from [facility] due to chief complaint of epigastric abdominal pain started about midnight. Patient denies bleeding from his rectum. Potassium 2.4 with EKG showing long QT interval and incomplete RBBB. WBC 14 with CXR showing possible infection and COPD. Hb noted to be 6.6, was admitted to the ICU for concern for possible upper GI bleed and gluteal pressure ulcers. Had a difficult day yesterday, very agitated, required redirection, zypjohn [place]. Pulled out his IV prior to blood and K infusions, required PICC insertion. Slept ok after that. Hb 7.6 and K 3.9 this morning. He is still somewhat agitated, yelling at nursing staff, refusing most care, especially refusing to be turned Q2hrs. special bed ordered for pressure ulcers. severe protein-caloric malnutrition Plan: EGD Operative Note EGD Meds propofol per anesthesia Pre-op dx anemia Post-o dx hiatal hernia non-erosive gastritis Plan advance diet iron supplements colonoscopy deferred due to patients inability to cooperate for prep telemetry floor Vitals Vitals Vital Signs Date Time Temp Pulse Resp B/P (MAP) Pulse Ox O2 Delivery O2 Flow Rate FiO2 09/05/18 07:00 98.7 89 14 136/69 (91) 97 Room Air 98.7 09/04/18 08:00 4.0 Physical Exam Physical Exam GENERAL: alert with several layers of blankets; on [place] bed HEENT: Oral cavity/pharynx dry. LUNGS: Clear to auscultation. HEART: S1, S2. ABDOMEN: Nondistended, soft and nontender with bowel sounds present. EXTREMITIES: No gross edema or cyanosis. Loss of muscle mass. SKIN: Warm without generalized rash. Multiple wounds NEUROLOGIC: Alert, oriented to self. RUE--PICC bandaged General: Alert, Cooperative, No acute distress, mild distress, Other Heart: Regular rate, Normal S1, Normal S2, No murmurs Lungs: Clear, Other (DEC RLL) Abdomen: Normal bowel sounds, Soft, No tenderness, No hepatosplenomegaly, No masses, Other (very thin) Extremities: No clubbing, No cyanosis, No edema, Normal pulses, No tenderness /swelling Skin: No rashes, No significant lesion, Other (Gluteal breakdown bilaterally) Labs LABS EXAM: Abdomen and pelvis CT with intravenous contrast. HISTORY: Colon mass. TECHNIQUE: Computed tomographic images of the abdomen and pelvis were obtained following the administration of intravenous contrast. Multiplanar reformatting was performed. *One or more of the following individualized dose reduction techniques were utilized for this examination: 1. Automated exposure control. 2. Adjustment of the mA and/or kV according to patient size. 3. Use of iterative reconstruction technique. COMPARISON: None. FINDINGS: Evaluation of the lower thorax demonstrates masslike consolidation within the right lung base measuring approximately 7.0 cm in maximum dimension. There are superimposed left infrahilar partially consolidated and groundglass opacities and there is bronchial wall thickening. There is a small right pleural effusion. No hepatic lesion is seen. The gallbladder, pancreas, spleen, the adrenal glands are unremarkable. There is mucosal thickening involving the gastric pylorus, likely due to relative under distention. There are multiple renal cysts. No solid renal lesion is seen. There is a large amount of stool within the colon. There is segmental mucosal thickening involving the rectum and rectosigmoid junction. There is no evidence of small bowel obstruction. There is no evidence of free air. There are multiple nonspecific lymph nodes throughout the root of the mesentery. There is no retroperitoneal lymphadenopathy. There is diffuse mesenteric stranding and mild body wall edema. 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 There are laminectomy changes involving the lumbosacral junction. There are bridging anterior osteophytes throughout the visualized thoracic spine the majority of the lumbar spine. There are degenerative changes primarily at L5-S1, contributing to foraminal stenosis. There are surgical clips within the pelvis and inguinal regions likely due to prostatectomy and lymph node dissection. IMPRESSION: 1. Segmental mucosal thickening involving the rectum and rectosigmoid junction. This may be due to colitis/proctitis. The possibility of neoplasm is not excluded. Correlate with colonoscopy findings. 2. Large amount stool within the colon, consistent with constipation. 3. Masslike consolidation within the right lower lobe with adjacent right infrahilar partially consolidated and groundglass infiltrate. This may be infectious or neoplastic in etiology. There is a superimposed small right pleural effusion and lower lobe bronchial wall thickening. 4. Mild mucosal thickening involving the pylorus, likely due to underdistention. 5. Renal cysts. 6. Mesenteric and body wall fatty stranding likely due to edema. 7. Nonspecific lymph nodes within the root of the mesentery. Electronically signed by: Angelita Sawyer MD (09/03/2018 7:07 PM) [facility] DICTATED and SIGNED BY: ANGELITA SAWYER MD DATE: 09/03/181906 Laboratory Tests Test 09/04/18 19:45 White Blood Count 16.0 x10^3/uL (4.0-11.0) Red Blood Count 2.97 x10^6/uL (4.30-5.70) Hemoglobin 7.5 g/dL (13.0-17.5) Hematocrit 23.9 % (39.0-53.0) Mean Corpuscular Volume 81 fL (79-100) Mean Corpuscular Hemoglobin 25 pg (25-35) Mean Corpuscular Hemoglobin Concent 31 g/dL (31-37) Red Cell Distribution Width 20.4 % (11.5-14.5) Platelet Count 281 x10^3/uL (140-400) Neutrophils (%) (Auto) 86 % (31-73) Lymphocytes (%) (Auto) 8 % (24-48) Monocytes (%) (Auto) 7 % (0-9) Eosinophils (%) (Auto) 0 % (0-3) Basophils (%) (Auto) 0 % (0-3) Neutrophils # (Auto) 13.6 x10^3uL (1.8-7.7) Lymphocytes # (Auto) 1.2 x10^3/uL (1.0-4.8) Monocytes # (Auto) 1.0 x10^3/uL (0.0-1.1) Eosinophils # (Auto) 0.0 x10^3/uL (0.0-0.7) Basophils # (Auto) 0.0 x10^3/uL (0.0-0.2) Sodium Level 144 mmol/L (136-145) Potassium Level 4.2 mmol/L (3.5-5.1) Chloride Level 106 mmol/L (98-107) Carbon Dioxide Level 31 mmol/L (21-32) Anion Gap 7 (6-14) Blood Urea Nitrogen 13 mg/dL (8-26) Creatinine 0.9 mg/dL (0.7-1.3) Estimated GFR (Cockcroft-Gault) 98.0 Glucose Level 103 mg/dL (70-99) Calcium Level 8.1 mg/dL (8.5-10.1) Phosphorus Level 2.7 mg/dL (2.6-4.7) Iron Level 12 ug/dL (65-175) Total Iron Binding Capacity 74 ug/dL (250-450) Iron Saturation 16 % (15-34) Ferritin 637 ng/mL (26-388) Albumin 1.8 g/dL (3.4-5.0) Comment Review of Relevant I have reviewed the following items minor (where applicable) has been applied. Labs Laboratory Tests Test 09/04/18 19:45 White Blood Count 16.0 x10^3/uL (4.0-11.0) Red Blood Count 2.97 x10^6/uL (4.30-5.70) Hemoglobin 7.5 g/dL (13.0-17.5) Hematocrit 23.9 % (39.0-53.0) Mean Corpuscular Volume 81 fL (79-100) Mean Corpuscular Hemoglobin 25 pg (25-35) Mean Corpuscular Hemoglobin Concent 31 g/dL (31-37) Red Cell Distribution Width 20.4 % (11.5-14.5) Platelet Count 281 x10^3/uL (140-400) Neutrophils (%) (Auto) 86 % (31-73) Lymphocytes (%) (Auto) 8 % (24-48) Monocytes (%) (Auto) 7 % (0-9) Eosinophils (%) (Auto) 0 % (0-3) Basophils (%) (Auto) 0 % (0-3) Neutrophils # (Auto) 13.6 x10^3uL (1.8-7.7) Lymphocytes # (Auto) 1.2 x10^3/uL (1.0-4.8) Monocytes # (Auto) 1.0 x10^3/uL (0.0-1.1) Eosinophils # (Auto) 0.0 x10^3/uL (0.0-0.7) Basophils # (Auto) 0.0 x10^3/uL (0.0-0.2) Sodium Level 144 mmol/L (136-145) Potassium Level 4.2 mmol/L (3.5-5.1) Chloride Level 106 mmol/L (98-107) Carbon Dioxide Level 31 mmol/L (21-32) Anion Gap 7 (6-14) Blood Urea Nitrogen 13 mg/dL (8-26) Creatinine 0.9 mg/dL (0.7-1.3) Estimated GFR (Cockcroft-Gault) 98.0 Glucose Level 103 mg/dL (70-99) Calcium Level 8.1 mg/dL (8.5-10.1) Phosphorus Level 2.7 mg/dL (2.6-4.7) Iron Level 12 ug/dL (65-175) Total Iron Binding Capacity 74 ug/dL (250-450) Iron Saturation 16 % (15-34) Ferritin 637 ng/mL (26-388) Albumin 1.8 g/dL (3.4-5.0) Laboratory Tests Test 09/04/18 19:45 White Blood Count 16.0 x10^3/uL (4.0-11.0) Red Blood Count 2.97 x10^6/uL (4.30-5.70) Hemoglobin 7.5 g/dL (13.0-17.5) Hematocrit 23.9 % (39.0-53.0) Mean Corpuscular Volume 81 fL (79-100) Mean Corpuscular Hemoglobin 25 pg (25-35) Mean Corpuscular Hemoglobin Concent 31 g/dL (31-37) Red Cell Distribution Width 20.4 % (11.5-14.5) Platelet Count 281 x10^3/uL (140-400) Neutrophils (%) (Auto) 86 % (31-73) Lymphocytes (%) (Auto) 8 % (24-48) Monocytes (%) (Auto) 7 % (0-9) Eosinophils (%) (Auto) 0 % (0-3) Basophils (%) (Auto) 0 % (0-3) Neutrophils # (Auto) 13.6 x10^3uL (1.8-7.7) Lymphocytes # (Auto) 1.2 x10^3/uL (1.0-4.8) Monocytes # (Auto) 1.0 x10^3/uL (0.0-1.1) Eosinophils # (Auto) 0.0 x10^3/uL (0.0-0.7) Basophils # (Auto) 0.0 x10^3/uL (0.0-0.2) Sodium Level 144 mmol/L (136-145) Potassium Level 4.2 mmol/L (3.5-5.1) Chloride Level 106 mmol/L (98-107) Carbon Dioxide Level 31 mmol/L (21-32) Anion Gap 7 (6-14) Blood Urea Nitrogen 13 mg/dL (8-26) Creatinine 0.9 mg/dL (0.7-1.3) Estimated GFR (Cockcroft-Gault) 98.0 Glucose Level 103 mg/dL (70-99) Calcium Level 8.1 mg/dL (8.5-10.1) Phosphorus Level 2.7 mg/dL (2.6-4.7) Iron Level 12 ug/dL (65-175) Total Iron Binding Capacity 74 ug/dL (250-450) Iron Saturation 16 % (15-34) Ferritin 637 ng/mL (26-388) Albumin 1.8 g/dL (3.4-5.0) Medications Current Medications Famotidine (Pepcid Vial) 20 mg 1X ONCE IVP Last administered on 09/01/18 03:22; Start 09/01/18 at 03:15; Stop 09/01/18 at 03:16; Status DC Potassium Chloride (Klor-Con) 60 meq 1X ONCE PO Last administered on 09/01/18at 04:53; Start 09/01/18 at 04:45; Stop 09/01/18 at 04:46; Status DC Dicyclomine HCl (Bentyl) 10 mg TID PO Last administered on 09/04/18 19:56; Start 09/01/18 at 09:00 Lisinopril (Prinivil) 10 mg DAILY PO Last administered on 09/04/18 13:17; Start 09/01/18 at 09:00 Pantoprazole Sodium (Protonix) 40 mg DAILYAC PO Last administered on 09/04/18 13:16; Start 09/01/18 at 09:00 Polyethylene Glycol (miraLAX PACKET) 17 gm DAILY PO Last administered on 09/04/18 13:16; Start 09/01/18 at 09:00 Potassium Chloride/Water 100 ml @ 100 mls/hr Q1H IV Last administered on 09/01/18 23:10; Start 09/01/18 at 09:00; Stop 09/01/18 at 12:59; Status DC Albuterol/ Ipratropium (Duoneb) 3 ml RTQID NEB Last administered on 09/02/18 20:14; Start 09/01/18 at 12:00; Stop 09/03/18 at 00:40; Status DC Labetalol HCl (Normodyne Iv Push) 10 mg Q4HRS PRN IVP HYPERTENSION, SEE COMMENTS; Start 09/01/18 at 10:00 Ondansetron HCl (Zofran) 4 mg PRN Q6HRS PRN IV NAUSEA/VOMITING; Start 09/02/18 at 07:00; Stop 09/02/18 at 17:01; Status DC Fentanyl Citrate (Fentanyl 2ml Vial) 25 mcg PRN Q5MIN PRN IV MILD PAIN; Start 09/02/18 at 07:00; Stop 09/02/18 at 10:40; Status DC Fentanyl Citrate (Fentanyl 2ml Vial) 50 mcg PRN Q5MIN PRN IV MODERATE TO SEVERE PAIN; Start 09/02/18 at 07:00; Stop 09/02/18 at 10:40; Status DC Morphine Sulfate (Morphine Sulfate) 1 mg PRN Q10MIN PRN IV SEVERE PAIN; Start 09/02/18 at 07:00; Stop 09/02/18 at 17:01; Status DC Ringer's Solution 1,000 ml @ 30 mls/hr Q24H IV Last administered on 09/02/18at 10:30; Start 09/02/18 at 07:00; Stop 09/02/18 at 10:41; Status DC Lidocaine HCl (Xylocaine-Mpf 1% 2ml Vial) 2 ml PRN 1X PRN ID PRIOR TO IV START; Start 09/02/18 at 07:00; Stop 09/02/18 at 10:41; Status DC Hydromorphone HCl (Dilaudid) 0.5 mg PRN Q10MIN PRN IV SEV PAIN, Second choice; Start 09/02/18 at 07:00; Stop 09/02/18 at 17:01; Status DC Prochlorperazine Edisylate (Compazine) 5 mg PACU PRN PRN IV NAUSEA, MRX1; Start 09/02/18 at 07:00; Stop 09/02/18 at 17:01; Status DC Olanzapine (ZyPREXA IM) 10 mg 1X ONCE IM Last administered on 09/01/18at 14:19; Start 09/01/18 at 13:45; Stop 09/01/18 at 13:46; Status DC Vancomycin HCl 1 gm/Sodium Chloride 250 ml @ 250 mls/hr Q12H IV ; Start 09/01/18 at 13:45; Status UNV Vancomycin HCl (Vanco Per Pharmacy) 1 each PRN DAILY PRN MC SEE COMMENTS Last administered on 09/02/18at 10:34; Start 09/01/18 at 14:00; Stop 09/03/18 at 12:40; Status DC Vancomycin HCl 1.25 gm/Sodium Chloride 250 ml @ 166.667 mls/hr 1X ONCE IV Last administered on 09/01/18at 21:39; Start 09/01/18 at 14:00; Stop 09/01/18 at 15:29; Status DC Olanzapine (ZyPREXA IM) 5 mg PRN BID PRN IM agitation Last administered on 09/04/18 19:59; Start 09/01/18 at 14:00 Risperidone (RisperDAL) 1 mg QHS PO Last administered on 09/04/18 19:56; Start 09/01/18 at 21:00 Ziprasidone (Geodon Im) 20 mg 1X ONCE IM Last administered on 09/01/18at 20:01; Start 09/01/18 at 17:00; Stop 09/01/18 at 17:01; Status DC Vancomycin HCl 750 mg/Sodium Chloride 250 ml @ 250 mls/hr Q24H IV Last administered on 09/02/18at 20:38; Start 09/02/18 at 21:30; Stop 09/03/18 at 12:40; Status DC Vancomycin HCl (Vancomycin Trough Level) 1 each 1X ONCE MC ; Start 09/03/18 at 21:00; Stop 09/03/18 at 21:00; Status DC Fentanyl Citrate (Fentanyl 2ml Vial) 25 mcg PRN Q5MIN PRN IV X 2 DOSES FOR PAIN; Start 09/02/18 at 10:30; Stop 09/02/18 at 14:41; Status DC Fentanyl Citrate (Fentanyl 2ml Vial) 50 mcg PRN Q5MIN PRN IV X 2 DOSES FOR PAIN; Start 09/02/18 at 10:30; Stop 09/02/18 at 14:41; Status DC Ringer's Solution 1,000 ml @ 125 mls/hr Q8H IV ; Start 09/02/18 at 10:29; Stop 09/02/18 at 14:41; Status DC Lidocaine HCl (Xylocaine-Mpf 1% 2ml Vial) 2 ml 1X PRN PRN ID IV START; Start 09/02/18 at 10:30; Stop 09/02/18 at 14:41; Status DC Propofol 20 ml @ As Directed STK-MED ONCE IV ; Start 09/02/18 at 11:13; Stop 09/02/18 at 11:14; Status DC Lidocaine HCl (Lidocaine Pf 2% Vial) 5 ml STK-MED ONCE .ROUTE ; Start 09/02/18 at 11:13; Stop 09/02/18 at 11:14; Status DC Albuterol Sulfate (Ventolin Neb Soln) 2.5 mg PRN QID PRN NEB WHEEZING; Start 09/03/18 at 00:45 Albuterol/ Ipratropium (Duoneb) 3 ml RTQID NEB Last administered on 09/04/18at 20:28; Start 09/03/18 at 08:15 Potassium Chloride/Water 50 ml @ 25 mls/hr Q2H IV Last administered on 09/03/18at 13:25; Start 09/03/18 at 11:00; Stop 09/03/18 at 14:59; Status DC Piperacillin Sod/ Tazobactam Sod 3.375 gm/Sodium Chloride 50 ml @ 100 mls/hr Q6HRS IV Last administered on 09/05/18at 05:08; Start 09/03/18 at 14:00 Alteplase, Recombinant (Cathflo For Central Catheter Clearance) 1 mg 1X ONCE INT CAT Last administered on 09/03/18at 17:01; Start 09/03/18 at 14:30; Stop 09/03/18 at 14:31; Status DC Iohexol (Omnipaque 300 Mg/ml) 75 ml 1X ONCE IV Last administered on 09/03/18at 17:30; Start 09/03/18 at 17:00; Stop 09/03/18 at 17:01; Status DC Info (CONTRAST GIVEN -- Rx MONITORING) 1 each PRN DAILY PRN MC SEE COMMENTS; Start 09/03/18 at 17:00; Stop 09/05/18 at 16:59 Potassium Chloride/Water 50 ml @ 50 mls/hr Q1H IV Last administered on 09/04/18at 13:00; Start 09/04/18 at 12:00; Stop 09/04/18 at 13:59; Status DC Lactobacillus Rhamnosus (Culturelle) 1 cap BID PO Last administered on 09/04/18at 19:57; Start 09/04/18 at 21:00 Active Scripts Active Reported Zinc Sulfate 220 Mg Tablet 220 Mg PO DAILY Calcium + Vitamin D Tablet (Calcium Carbonate/Vitamin D3) 1 Each Tablet 1 Each PO BID Acidophilus (Lactobacillus Acidophilus) 1 Each Capsule 2 Each PO TID Quetiapine Fumarate 25 Mg Tablet 25 Mg PO BID Lisinopril 10 Mg Tablet 10 Mg PO DAILY Protonix (Pantoprazole Sodium) 20 Mg Tablet.dr 40 Mg DAILY Miralax (Polyethylene Glycol 3350) 17 Gm Powd.pack 1 Pkt PO DAILY Alendronate Sodium 70 Mg Tablet 70 Mg PO WEEKLY Gabapentin 300 Mg Capsule 300 Mg PO TID Vitals/I & O Vital Sign - Last 24 Hours 09/04/18 09/04/18 09/04/18 09/04/18 11:00 13:17 14:51 15:57 Temp 97.9 98.1 97.9 98.1 Pulse 92 92 103 Resp 16 12 B/P (MAP) 152/50 (84) 152/50 130/71 (90) Pulse Ox 93 95 94 O2 Delivery Room Air Room Air Room Air 09/04/18 09/04/18 09/04/18 09/04/18 19:00 20:00 20:31 23:00 Temp 98.0 98.4 98.0 98.4 Pulse 114 105 Resp 14 14 B/P (MAP) 112/63 (79) 113/61 (78) Pulse Ox 96 95 90 O2 Delivery Room Air Room Air Room Air Room Air 09/05/18 09/05/18 03:00 07:00 Temp 97.8 98.7 97.8 98.7 Pulse 99 89 Resp 18 14 B/P (MAP) 112/58 (76) 136/69 (91) Pulse Ox 98 97 O2 Delivery Room Air Room Air Intake and Output 09/04/18 09/04/18 09/05/18 15:00 23:00 07:00 Intake Total 360 ml 470 ml 650 ml Balance 360 ml 470 ml 650 ml Nutrition Consultation Dietary Evaluation: Recommendations by RD: Increase Calorie Intake, Protein supplementation, PPN/TPN Comments: REC advance diet to regular as able pending GI status; REC Roman BID and Ensure as tolerated/per pt request If unable to advance diet within 24 - 72 hrs, recommend TPN per followin g AA, 225 g dextrose, 20 g lipids Expected Outcomes/Goals: Diet advancement - not met, goal ongoing Interpretation of weight loss: >20% in 1 year Malnutrition Findings: Weight Status: Emaciated FULBRIGHT,LAKEISHA W MD September 05, 2018 10:13
[2018-09-05 11:05] VITALS: BP 137/64
--- NOTE | 2018-09-05 12:51 | CONS ---
DATE OF CONSULTATION: ATTENDING PHYSICIAN: Dr. Ruano. REASON FOR CONSULTATION: Abnormal CT chest, possible lung mass. HISTORY OF PRESENT ILLNESS: The patient is an 83-year-old male who has no history of tobacco use. He has underlying dementia. He was brought into the hospital with epigastric abdominal pain. The patient lives at the snf facility. There was no bleeding per rectum. He underwent imaging study, which included a CT of the abdomen and pelvis. I have reviewed the CT report and the pictures of the lower part of the lung. The patient has segmental mucosal thickening involving the rectum and rectosigmoid junction. The possibility of colitis and proctitis was considered, along with a neoplasm was also a consideration. The patient also had large amount of stool within the colon. There is also a mass-like consolidation in the right lower lobe. There was a small pleural effusion on the right side. I have been asked to see him for further evaluation. He does have a mild cough. No hemoptysis. Denies any weight loss. No headaches, no nausea, vomiting, no diarrhea. PAST MEDICAL HISTORY: Significant for history of hypertension, hyperlipidemia, peripheral neuropathy, low back pain, prostate cancer. PAST SURGICAL HISTORY: No recent surgery. ALLERGIES: SULFA, CIPRO AND DULOXETINE. SOCIAL HISTORY: Nonsmoker, nonalcoholic. REVIEW OF SYSTEMS: Twelve-point system obtained. Pertinent positives discussed in my history of present illness, otherwise noncontributory. All systems that were negative were reviewed as well. MEDICATIONS: All reviewed as listed in the MRAD. PHYSICAL EXAMINATION: VITAL SIGNS: Reviewed, afebrile, pulse ox 96% room air. NECK: Supple. LUNGS: Diminished breath sounds bilaterally. CARDIOVASCULAR: Regular rate. ABDOMEN: Soft, nontender. EXTREMITIES: With no pitting edema. LABORATORY DATA: Reviewed. His hemoglobin initially was 6.6 and now is 7.5. White cell count 16.0, platelets are 281. BUN and creatinine are 9 and 0.7. IMPRESSION: 1. Abnormal CT abdomen and pelvis with a mass-like consolidation seen in the right lower lobe. This could be inflammatory in etiology versus discoid atelectasis. The possibility of lung malignancy cannot be completely ruled out. 2. Anemia, present on admission, along with abnormal CT abdomen and pelvis suggesting colitis/proctitis, however, the possibility of neoplasm is also a concern. Colonoscopy not performed as he is not willing to undergo prep. 3. No significant history of tobacco use. 4. Severe protein-calorie malnutrition with an albumin level of 1.8. 5. Leukocytosis, likely related to infectious etiology. RECOMMENDATIONS: 1. From a pulmonary standpoint, I would recommend that we should have a full CT chest at this time and if there are no new parenchymal abnormalities, then followup CT chest in 4-6 weeks after adequate treatment with antibiotics to see if this mass-like density persists in the right lower lobe. 2. Follow GI recommendations. He would benefit from colonoscopy to rule out colonic malignancy. 3. Follow hemoglobin. 4. P.r.n. oxygen. 5. Improve nutritional status. 6. We will follow along with you. KELSI SOLORIO MD DR: TANIA/nts JOB#: [id number] / [id number]
[2018-09-05] MEDS: PANTOPRAZOLE 40 MG TABLET.DR. PO SCH (13:22)
[2018-09-05] MEDS: LACTOBACILLUS RHAMNOSUS GG 1 CAPSULE. PO SCH ×2 (13:22→21:28)
[2018-09-05] MEDS: DICYCLOMINE HCL 10 MG CAPSULE PO SCH ×3 (13:22→21:29)
[2018-09-05] MEDS: LISINOPRIL 10 MG TABLET PO SCH (13:22)
[2018-09-05] MEDS: POLYETHYLENE GLYCOL 3350 17 GM PACKET. PO SCH ×2 (13:22→21:29)
--- NOTE | 2018-09-05 13:36 | RAD ---
CT CHEST WO CONTRAST Indication: Lung mass versus discoid atelectasis. Prostate cancer. Exposure: One or more of the following individualized dose reduction techniques were utilized for this examination: 1. Automated exposure control 2. Adjustment of the mA and/or kV according to patient size 3. Use of iterative reconstruction technique. Technique: Standard imaging without intravenous contrast. Comparison: CT abdomen of September 03, 2018. No prior CT chest. FINDINGS: Limited vascular examination without contrast. No evidence of aortic aneurysm. There are aortic calcifications. Coronary artery calcifications. No pericardial effusion. No significant thyroid mass. No significant lymph node enlargement. Small right pleural effusion has slightly increased since prior study. Masslike consolidation at the right lower lobe is again seen. Right lower lobe bronchial wall thickening and mild adjacent groundglass opacities are identified. There is a calcified nodule in the left lung base likely a granuloma. There is a small nodule in the anterior left upper lobe, series 3, image 30 measures about 3 mm with an irregular appearance. There is mild groundglass opacity in the right upper lobe. Trachea and central bronchi are patent. Scans to the upper abdomen are limited due to technique. There is retained stool in the colon. IMPRESSION: 1. Small right pleural effusion has slightly increased in size. 2. Masslike consolidation right lower lobe is again seen, as is adjacent groundglass opacity and bronchial wall thickening. As stated previously, this could be infectious or neoplastic in nature. Recommend short-term follow-up CT chest, after acute treatment. 3. Small left upper lobe pulmonary nodule, could also be further evaluated on follow-up exam. Electronically signed by: Ed Bahena MD (09/05/2018 1:34 PM) [id number]
--- NOTE | 2018-09-05 14:52 | PDOC ---
Objective: Objective: Reviewed w/ RN/staff: Has been difficult. Refuses blood draws, takes meds. Ate well, hasn't stooled since 09/01. Vital Signs: Vital Signs Date Time Temp Pulse Resp B/P (MAP) Pulse Ox O2 Delivery O2 Flow Rate FiO2 09/05/18 13:22 85 137/64 09/05/18 11:39 96 Room Air 09/05/18 11:05 98.2 16 98.2 09/04/18 08:00 4.0 Labs: Laboratory Tests Test 09/04/18 19:45 White Blood Count 16.0 x10^3/uL Red Blood Count 2.97 x10^6/uL Hemoglobin 7.5 g/dL Hematocrit 23.9 % Mean Corpuscular Volume 81 fL Mean Corpuscular Hemoglobin 25 pg Mean Corpuscular Hemoglobin Concent 31 g/dL Red Cell Distribution Width 20.4 % Platelet Count 281 x10^3/uL Neutrophils (%) (Auto) 86 % Lymphocytes (%) (Auto) 8 % Monocytes (%) (Auto) 7 % Eosinophils (%) (Auto) 0 % Basophils (%) (Auto) 0 % Neutrophils # (Auto) 13.6 x10^3uL Lymphocytes # (Auto) 1.2 x10^3/uL Monocytes # (Auto) 1.0 x10^3/uL Eosinophils # (Auto) 0.0 x10^3/uL Basophils # (Auto) 0.0 x10^3/uL Sodium Level 144 mmol/L Potassium Level 4.2 mmol/L Chloride Level 106 mmol/L Carbon Dioxide Level 31 mmol/L Anion Gap 7 Blood Urea Nitrogen 13 mg/dL Creatinine 0.9 mg/dL Estimated GFR (Cockcroft-Gault) 98.0 Glucose Level 103 mg/dL Calcium Level 8.1 mg/dL Phosphorus Level 2.7 mg/dL Iron Level 12 ug/dL Total Iron Binding Capacity 74 ug/dL Iron Saturation 16 % Ferritin 637 ng/mL Albumin 1.8 g/dL Imaging: EGD 09/02 hiatal hernia non-erosive gastritis CT A/P 09/03 IMPRESSION: 1. Segmental mucosal thickening involving the rectum and rectosigmoid junction. This may be due to colitis/proctitis. The possibility of neoplasm is not excluded. Correlate with colonoscopy findings. 2. Large amount stool within the colon, consistent with constipation. 3. Masslike consolidation within the right lower lobe with adjacent right infrahilar partially consolidated and groundglass infiltrate. This may be infectious or neoplastic in etiology. There is a superimposed small right pleural effusion and lower lobe bronchial wall thickening. 4. Mild mucosal thickening involving the pylorus, likely due to underdistention. 5. Renal cysts. 6. Mesenteric and body wall fatty stranding likely due to edema. 7. Nonspecific lymph nodes within the root of the mesentery. Chest CT 09/05 IMPRESSION: 1. Small right pleural effusion has slightly increased in size. 2. Masslike consolidation right lower lobe is again seen, as is adjacent groundglass opacity and bronchial wall thickening. As stated previously, this could be infectious or neoplastic in nature. Recommend short-term follow-up CT chest, after acute treatment. 3. Small left upper lobe pulmonary nodule, could also be further evaluated on follow-up exam. PE: GEN: NAD NEURO/PSYCH: sleeping, not awakened A/P: Dementia ERASMO Abnormal CT - segmental mucosal thickening involving rectum and rectosigmoid junction, large amount of stool, RLL masslike consolidation and small right pleural effusion, nonspecific lymphadenopathy Leukocytosis -- ?family discussion re: any desire to pursue colonoscopy - not sure he'd cooperate HILDA CASEY September 05, 2018 14:52
[2018-09-05 15:00] VITALS: BP 143/71
--- NOTE | 2018-09-05 15:50 | PDOC2 ---
PALLIATIVE CARE Palliative Care Note Palliative Care consult requested by Dr. Blackburn to address goals of care. Medical Assessment per medical record; Acute anemia - Hb 6.6 s/p 1u PRBC, Hypokalemia - Chest pain - likely demand ischemia from acute anemia, COPD - Leukocytosis - meets SIRS criteria, sepsis with pneumonia as source - Gen weakness, bl legs - SNF resident, PT/OT Chronic lower back pain - HTN GERD - PPI Dementia with behavioral disorder - Gluteal decubitus ulcers - wound care following Mass-like consolidation RLL on CT Segmental mucosal thickening involving the rectum and rectosigmoid junction. This may be due to colitis/proctitis. The possibility of neoplasm is not excluded. Correlate with colonoscopy findings. Large amount stool within the colon, consistent with constipation. Masslike consolidation within the right lower lobe with adjacent right infrahilar partially consolidated and groundglass infiltrate. This may be infectious or neoplastic in etiology. There is a superimposed small right pleural effusion and lower lobe bronchial wall thickening. Seen at 1130 Patient alet. Oriented to person and place. Code Status; DNR/DNI No AD on record. Spoke with Sahil, . Reviewed above medical condition. Discussed goals. She would like to continue to treat above medical conditions and then consider Hospice Evaluation when he returns to [place]. Concern voiced by the about patient's dementia and ability to make complex medical decisions. JIM RUBIO September 05, 2018 15:50
[2018-09-05 19:00] VITALS: BP 121/59
[2018-09-05] MEDS: risperiDONE 1 MG TABLET. PO SCH (21:28)
[2018-09-05 22:36] VITALS: BP 117/45
[2018-09-06] VITALS (14 sets, daily range): BP systolic 117–161; BP diastolic 65–101
[2018-09-06] MEDS: PIPERACILLIN/TAZOBACTAM 3.375 GM in IV NORMAL SALINE 50ML 50 ML IV SCH ×3 (05:14→17:47)
[2018-09-06 05:39] LABS: BASO % 0 % (0-3); EOS # 0.1 x10^3/uL (0.0-0.7); EOS % 1 % (0-3); HEMATOCRIT 21.7 % (39.0-53.0); LYMPH # 1.2 x10^3/uL (1.0-4.8); LYMPH % 10 % (24-48); MEAN CORPUSCULAR HEMOGLOBIN 25 pg (25-35); MEAN CORPUSCULAR HGB CONC 32 g/dL (31-37); MEAN CORPUSCULAR VOLUME 81 fL (79-100); MONO # 0.9 x10^3/uL (0.0-1.1); MONO % 8 % (0-9); NEUT # 9.9 x10^3uL (1.8-7.7); NEUT % 81 % (31-73); PLATELET COUNT 273 x10^3/uL (140-400); RED BLOOD COUNT 2.69 x10^6/uL (4.30-5.70); RED CELL DISTRIBUTION WIDTH 21.5 % (11.5-14.5); WHITE BLOOD COUNT 12.2 x10^3/uL (4.0-11.0)
[2018-09-06 05:45] LABS: HEMOGLOBIN 6.8 g/dL (13.0-17.5)
[2018-09-06 05:57] LABS: ALBUMIN 1.8 g/dL (3.4-5.0); ALBUMIN/GLOBULIN RATIO 0.5 (1.0-1.7); CREATININE 0.7 mg/dL (0.7-1.3); POTASSIUM 3.9 mmol/L (3.5-5.1); TOTAL BILIRUBIN 0.4 mg/dL (0.2-1.0); TOTAL PROTEIN 5.1 g/dL (6.4-8.2)
[2018-09-06] MEDS: IPRATRPIUM/ALBUTEROL 0.5/2.5MG 3 ML NEBU. NEB SCH ×4 (08:06→20:20)
[2018-09-06] MEDS: DICYCLOMINE HCL 10 MG CAPSULE PO SCH ×3 (08:28→20:44)
[2018-09-06] MEDS: LACTOBACILLUS RHAMNOSUS GG 1 CAPSULE. PO SCH ×2 (08:28→20:44)
[2018-09-06] MEDS: LISINOPRIL 10 MG TABLET PO SCH (08:29)
[2018-09-06] MEDS: POLYETHYLENE GLYCOL 3350 17 GM PACKET. PO SCH ×2 (08:29→20:44)
[2018-09-06] MEDS: PANTOPRAZOLE 40 MG TABLET.DR. PO SCH (08:30)
--- NOTE | 2018-09-06 09:22 | PDOC ---
PULMONARY PROGRESS NOTES Subjective PT NOT MORE SOA Vitals Vital Signs Date Time Temp Pulse Resp B/P (MAP) Pulse Ox O2 Delivery O2 Flow Rate FiO2 09/06/18 08:29 87 144/65 09/06/18 08:08 95 Room Air 09/06/18 06:31 16 09/06/18 02:39 97.3 97.3 ROS: No Nausea, No Chest Pain, No Abdominal Pain, No Increase Cough General: Confused Lungs: Crackles Cardiovascular: S1, S2 Abdomen: Soft Neuro Exam: Alert Skin: Warm Labs Laboratory Tests Test 09/04/18 19:45 09/06/18 05:26 White Blood Count 16.0 x10^3/uL (4.0-11.0) 12.2 x10^3/uL (4.0-11.0) Red Blood Count 2.97 x10^6/uL (4.30-5.70) 2.69 x10^6/uL (4.30-5.70) Hemoglobin 7.5 g/dL (13.0-17.5) 6.8 g/dL (13.0-17.5) Hematocrit 23.9 % (39.0-53.0) 21.7 % (39.0-53.0) Mean Corpuscular Volume 81 fL (79-100) 81 fL (79-100) Mean Corpuscular Hemoglobin 25 pg (25-35) 25 pg (25-35) Mean Corpuscular Hemoglobin Concent 31 g/dL (31-37) 32 g/dL (31-37) Red Cell Distribution Width 20.4 % (11.5-14.5) 21.5 % (11.5-14.5) Platelet Count 281 x10^3/uL (140-400) 273 x10^3/uL (140-400) Neutrophils (%) (Auto) 86 % (31-73) 81 % (31-73) Lymphocytes (%) (Auto) 8 % (24-48) 10 % (24-48) Monocytes (%) (Auto) 7 % (0-9) 8 % (0-9) Eosinophils (%) (Auto) 0 % (0-3) 1 % (0-3) Basophils (%) (Auto) 0 % (0-3) 0 % (0-3) Neutrophils # (Auto) 13.6 x10^3uL (1.8-7.7) 9.9 x10^3uL (1.8-7.7) Lymphocytes # (Auto) 1.2 x10^3/uL (1.0-4.8) 1.2 x10^3/uL (1.0-4.8) Monocytes # (Auto) 1.0 x10^3/uL (0.0-1.1) 0.9 x10^3/uL (0.0-1.1) Eosinophils # (Auto) 0.0 x10^3/uL (0.0-0.7) 0.1 x10^3/uL (0.0-0.7) Basophils # (Auto) 0.0 x10^3/uL (0.0-0.2) 0.0 x10^3/uL (0.0-0.2) Sodium Level 144 mmol/L (136-145) 144 mmol/L (136-145) Potassium Level 4.2 mmol/L (3.5-5.1) 3.9 mmol/L (3.5-5.1) Chloride Level 106 mmol/L (98-107) 109 mmol/L (98-107) Carbon Dioxide Level 31 mmol/L (21-32) 31 mmol/L (21-32) Anion Gap 7 (6-14) 4 (6-14) Blood Urea Nitrogen 13 mg/dL (8-26) 10 mg/dL (8-26) Creatinine 0.9 mg/dL (0.7-1.3) 0.7 mg/dL (0.7-1.3) Estimated GFR (Cockcroft-Gault) 98.0 131.0 Glucose Level 103 mg/dL (70-99) 84 mg/dL (70-99) Calcium Level 8.1 mg/dL (8.5-10.1) 8.0 mg/dL (8.5-10.1) Phosphorus Level 2.7 mg/dL (2.6-4.7) Iron Level 12 ug/dL (65-175) Total Iron Binding Capacity 74 ug/dL (250-450) Iron Saturation 16 % (15-34) Ferritin 637 ng/mL (26-388) Albumin 1.8 g/dL (3.4-5.0) 1.8 g/dL (3.4-5.0) BUN/Creatinine Ratio 14 (6-20) Total Bilirubin 0.4 mg/dL (0.2-1.0) Aspartate Amino Transf (AST/SGOT) 10 U/L (15-37) Alanine Aminotransferase (ALT/SGPT) 8 U/L (16-63) Alkaline Phosphatase 88 U/L (46-116) Total Protein 5.1 g/dL (6.4-8.2) Albumin/Globulin Ratio 0.5 (1.0-1.7) Laboratory Tests Test 09/06/18 05:26 White Blood Count 12.2 x10^3/uL (4.0-11.0) Red Blood Count 2.69 x10^6/uL (4.30-5.70) Hemoglobin 6.8 g/dL (13.0-17.5) Hematocrit 21.7 % (39.0-53.0) Mean Corpuscular Volume 81 fL (79-100) Mean Corpuscular Hemoglobin 25 pg (25-35) Mean Corpuscular Hemoglobin Concent 32 g/dL (31-37) Red Cell Distribution Width 21.5 % (11.5-14.5) Platelet Count 273 x10^3/uL (140-400) Neutrophils (%) (Auto) 81 % (31-73) Lymphocytes (%) (Auto) 10 % (24-48) Monocytes (%) (Auto) 8 % (0-9) Eosinophils (%) (Auto) 1 % (0-3) Basophils (%) (Auto) 0 % (0-3) Neutrophils # (Auto) 9.9 x10^3uL (1.8-7.7) Lymphocytes # (Auto) 1.2 x10^3/uL (1.0-4.8) Monocytes # (Auto) 0.9 x10^3/uL (0.0-1.1) Eosinophils # (Auto) 0.1 x10^3/uL (0.0-0.7) Basophils # (Auto) 0.0 x10^3/uL (0.0-0.2) Sodium Level 144 mmol/L (136-145) Potassium Level 3.9 mmol/L (3.5-5.1) Chloride Level 109 mmol/L (98-107) Carbon Dioxide Level 31 mmol/L (21-32) Anion Gap 4 (6-14) Blood Urea Nitrogen 10 mg/dL (8-26) Creatinine 0.7 mg/dL (0.7-1.3) Estimated GFR (Cockcroft-Gault) 131.0 BUN/Creatinine Ratio 14 (6-20) Glucose Level 84 mg/dL (70-99) Calcium Level 8.0 mg/dL (8.5-10.1) Total Bilirubin 0.4 mg/dL (0.2-1.0) Aspartate Amino Transf (AST/SGOT) 10 U/L (15-37) Alanine Aminotransferase (ALT/SGPT) 8 U/L (16-63) Alkaline Phosphatase 88 U/L (46-116) Total Protein 5.1 g/dL (6.4-8.2) Albumin 1.8 g/dL (3.4-5.0) Albumin/Globulin Ratio 0.5 (1.0-1.7) Medications Active Scripts Medications Dose Route/Sig Max Daily Dose Days Date Category Zinc Sulfate 220 Mg Tablet 220 Mg PO DAILY 09/01/18 Reported Calcium + Vitamin D Tablet (Calcium Carbonate/Vitamin D3) 1 Each Tablet 1 Each PO BID 09/01/18 Reported Acidophilus (Lactobacillus Acidophilus) 1 Each Capsule 2 Each PO TID 09/01/18 Reported Quetiapine Fumarate 25 Mg Tablet 25 Mg PO BID 09/01/18 Reported Lisinopril 10 Mg Tablet 10 Mg PO DAILY 09/01/18 Reported Protonix (Pantoprazole Sodium) 20 Mg Tablet.dr 40 Mg DAILY 09/01/18 Reported Miralax (Polyethylene Glycol 3350) 17 Gm Powd.pack 1 Pkt PO DAILY 09/26/17 Reported Alendronate Sodium 70 Mg Tablet 70 Mg PO WEEKLY 09/26/17 Reported Gabapentin 300 Mg Capsule 300 Mg PO TID 01/10/16 Reported Impression . IMPRESSION: 1. RLL MASS LIKE DENSITY/ GUZMAN NODULE 2. Anemia, present on admission, along with abnormal CT abdomen and pelvis suggesting colitis/proctitis, however, the possibility of neoplasm is also a concern. Colonoscopy not performed as he is not willing to undergo prep. 3. No significant history of tobacco use. 4. Severe protein-calorie malnutrition with an albumin level of 1.8. 5. Leukocytosis, likely related to infectious etiology. 6. RIGHT EFFUSION CT CHEST IMPRESSION: 1. Small right pleural effusion has slightly increased in size. 2. Masslike consolidation right lower lobe is again seen, as is adjacent groundglass opacity and bronchial wall thickening. As stated previously, this could be infectious or neoplastic in nature. Recommend short-term follow-up CT chest, after acute treatment. 3. Small left upper lobe pulmonary nodule, could also be further evaluated on follow-up exam. Plan . CONTINUE SAME RX REPEAT CT 6-8 WEEKS FOLLOW GI INPUT APPRECIATE PALLIATIVE CARE INPUT DAVI SCHULTZ MD September 06, 2018 09:22
--- NOTE | 2018-09-06 10:05 | PDOC ---
Infectious Disease Note Subjective Subjective Feeling pretty fair Wants to get up and walk Denies pain/SOA/N/V No fevers Vital Sign Vital Signs Vital Signs Date Time Temp Pulse Resp B/P (MAP) Pulse Ox O2 Delivery O2 Flow Rate FiO2 09/06/18 08:29 87 144/65 09/06/18 08:08 95 Room Air 09/06/18 06:31 16 09/06/18 02:39 97.3 97.3 Physical Exam PHYSICAL EXAM GENERAL: Alert, relaxed appearance, NAD HEENT: Oral cavity/pharynx moist LUNGS: Clear to auscultation. HEART: S1, S2. ABDOMEN: Nondistended, soft and nontender with bowel sounds present. EXTREMITIES: No gross edema or cyanosis. Loss of muscle mass. SKIN: Warm without generalized rash. Multiple wounds NEUROLOGIC: Alert, coop, RUE--PICC bandaged Labs Lab Laboratory Tests Test 09/06/18 05:26 White Blood Count 12.2 x10^3/uL (4.0-11.0) Red Blood Count 2.69 x10^6/uL (4.30-5.70) Hemoglobin 6.8 g/dL (13.0-17.5) Hematocrit 21.7 % (39.0-53.0) Mean Corpuscular Volume 81 fL (79-100) Mean Corpuscular Hemoglobin 25 pg (25-35) Mean Corpuscular Hemoglobin Concent 32 g/dL (31-37) Red Cell Distribution Width 21.5 % (11.5-14.5) Platelet Count 273 x10^3/uL (140-400) Neutrophils (%) (Auto) 81 % (31-73) Lymphocytes (%) (Auto) 10 % (24-48) Monocytes (%) (Auto) 8 % (0-9) Eosinophils (%) (Auto) 1 % (0-3) Basophils (%) (Auto) 0 % (0-3) Neutrophils # (Auto) 9.9 x10^3uL (1.8-7.7) Lymphocytes # (Auto) 1.2 x10^3/uL (1.0-4.8) Monocytes # (Auto) 0.9 x10^3/uL (0.0-1.1) Eosinophils # (Auto) 0.1 x10^3/uL (0.0-0.7) Basophils # (Auto) 0.0 x10^3/uL (0.0-0.2) Sodium Level 144 mmol/L (136-145) Potassium Level 3.9 mmol/L (3.5-5.1) Chloride Level 109 mmol/L (98-107) Carbon Dioxide Level 31 mmol/L (21-32) Anion Gap 4 (6-14) Blood Urea Nitrogen 10 mg/dL (8-26) Creatinine 0.7 mg/dL (0.7-1.3) Estimated GFR (Cockcroft-Gault) 131.0 BUN/Creatinine Ratio 14 (6-20) Glucose Level 84 mg/dL (70-99) Calcium Level 8.0 mg/dL (8.5-10.1) Total Bilirubin 0.4 mg/dL (0.2-1.0) Aspartate Amino Transf (AST/SGOT) 10 U/L (15-37) Alanine Aminotransferase (ALT/SGPT) 8 U/L (16-63) Alkaline Phosphatase 88 U/L (46-116) Total Protein 5.1 g/dL (6.4-8.2) Albumin 1.8 g/dL (3.4-5.0) Albumin/Globulin Ratio 0.5 (1.0-1.7) Chest CT 1. Small right pleural effusion has slightly increased in size. 2. Masslike consolidation right lower lobe is again seen, as is adjacent groundglass opacity and bronchial wall thickening. As stated previously, this could be infectious or neoplastic in nature. Recommend short-term follow-up CT chest, after acute treatment. 3. Small left upper lobe pulmonary nodule, could also be further evaluated on follow-up exam. Micro 09/04/18 Blood Culture - Preliminary, Resulted NO GROWTH AFTER [address] Chest IMPRESSION: 1. Small right pleural effusion has slightly increased in size. 2. Masslike consolidation right lower lobe is again seen, as is adjacent groundglass opacity and bronchial wall thickening. As stated previously, this could be infectious or neoplastic in nature. Recommend short-term follow-up CT chest, after acute treatment. 3. Small left upper lobe pulmonary nodule, could also be further evaluated on follow-up exam. Objective Assessment Leukocytosis, better Chills - better Mass-like consolidation RLL on CT Possible Ileus vs partial bowel obstruction on KUB. f/u CT showed mucosal thickening involving the rectum and rectosigmoid junction. This may be due to colitis/proctitis. Constipation - last BM 5/4 Allergies sulfa and ciprofloxacin Acute anemia s/p PRBCs and EGD COPD Multiple wounds Debility Dementia Plan Plan of Care Cont Zosyn UA not collected wound care team following Blood transfusion underway CBC in am Patient seen, examined, I agree with above Assessment and plan formulated by [employer]ACHINE [employer]. JEFF GARCIA APRN September 06, 2018 10:05 JOEL CARBAJAL MD September 06, 2018 11:12
--- NOTE | 2018-09-06 10:39 | PDOC ---
PROGRESS NOTES Chief Complaint Chief Complaint A/P: Acute anemia - Hb 6.6 s/p 1u PRBC, f/u H&H daily. EGD 5/3 Hypokalemia - Replaced, monitor Chest pain - likely demand ischemia from acute anemia, cont telemetry COPD - will place on nebulizer treatments Leukocytosis - meets SIRS criteria, sepsis with pneumonia as source - high risk for gram negative, HCAP from SNF, will check procalcitonin and treat accordingly - vanco and zosyn Gen weakness, bl legs - SNF resident, will have PT/OT work with him when he is recovered more Chronic lower back pain - will cont pain medications prn HTN - cont home meds GERD - PPI Dementia with behavioral disorder - light during day, redirection. Zyprexa IM prn, risperidal at night Gluteal decubitus ulcers - wound care following Mass-like consolidation RLL on CT Segmental mucosal thickening involving the rectum and rectosigmoid junction. This may be due to colitis/proctitis. The possibility of neoplasm is not excluded. Correlate with colonoscopy findings. Large amount stool within the colon, consistent with constipation. Masslike consolidation within the right lower lobe with adjacent right infrahilar partially consolidated and groundglass infiltrate. This may be infectious or neoplastic in etiology. There is a superimposed small right pleural effusion and lower lobe bronchial wall thickening. FEN - Cardiac diet if ok with GI PPX - SCDs, PPI DNR/DNI Dispo - 2 midnights inpatient d/c vancomycin Dose Zosyn CONSULT PALLIATIVE CARE CONSULT PULM 33 min pt exam, chart review, > 50% of time spent with exam, chart review, pt ca re coordination History of Present Illness History of Present Illness 83 yo M w/ PMHx chronic back pain, prostate ca history, dementia is brought to ED by EMS from [facility] due to chief complaint of epigastric abdominal pain started about midnight. Patient denies bleeding from his rectum. Potassium 2.4 with EKG showing long QT interval and incomplete RBBB. WBC 14 with CXR showing possible infection and COPD. Hb noted to be 6.6, was admitted to the ICU for concern for possible upper GI bleed and gluteal pressure ulcers. Had a difficult day yesterday, very agitated, required redirection, zypjohn gaydon. Pulled out his IV prior to blood and K infusions, required PICC insertion. Slept ok after that. Hb 7.6 and K 3.9 this morning. He is still somewhat agitated, yelling at nursing staff, refusing most care, especially refusing to be turned Q2hrs. special bed ordered for pressure ulcers. severe protein-caloric malnutrition Plan: EGD Operative Note EGD Meds propofol per anesthesia Pre-op dx anemia Post-o dx hiatal hernia non-erosive gastritis Plan advance diet iron supplements colonoscopy deferred due to patients inability to cooperate for prep telemetry floor 09/06 hgb dec 6.8 transfused Vitals Vitals Vital Signs Date Time Temp Pulse Resp B/P (MAP) Pulse Ox O2 Delivery O2 Flow Rate FiO2 09/06/18 08:29 87 144/65 09/06/18 08:08 95 Room Air 09/06/18 06:31 16 09/06/18 02:39 97.3 97.3 Physical Exam Physical Exam GENERAL: Alert, relaxed appearance, NAD HEENT: Oral cavity/pharynx moist LUNGS: Clear to auscultation. HEART: S1, S2. ABDOMEN: Nondistended, soft and nontender with bowel sounds present. EXTREMITIES: No gross edema or cyanosis. Loss of muscle mass. SKIN: Warm without generalized rash. Multiple wounds NEUROLOGIC: Alert, coop, RUE--PICC bandaged General: Alert, Cooperative, No acute distress, mild distress, Other Heart: Regular rate, Normal S1, Normal S2, No murmurs Lungs: Clear, Other (DEC RLL) Abdomen: Normal bowel sounds, Soft, No tenderness, No hepatosplenomegaly, No masses, Other (very thin) Extremities: No clubbing, No cyanosis, No edema, Normal pulses, No tenderness/swelling Skin: No rashes, No significant lesion, Other (Gluteal breakdown bilaterally) Labs LABS REASON: lung mass vs discoid atelectasis PROCEDURE: CT CHEST WO CONTRAST CT CHEST WO CONTRAST Indication: Lung mass versus discoid atelectasis. Prostate cancer. Exposure: One or more of the following individualized dose reduction techniques were utilized for this examination: 1. Automated exposure control 2. Adjustment of the mA and/or kV according to patient size 3. Use of iterative reconstruction technique. Technique: Standard imaging without intravenous contrast. Comparison: CT abdomen of September 03, 2018. No prior CT chest. FINDINGS: Limited vascular examination without contrast. No evidence of aortic aneurysm. There are aortic calcifications. Coronary artery calcifications. No pericardial effusion. No significant thyroid mass. No significant lymph node enlargement. Small right pleural effusion has slightly increased since prior study. Masslike consolidation at the right lower lobe is again seen. Right lower lobe bronchial wall thickening and mild adjacent groundglass opacities are identified. There is a calcified nodule in the left lung base likely a granuloma. There is a small nodule in the anterior left upper lobe, series 3, image 30 measures about 3 mm with an irregular appearance. There is mild groundglass opacity in the right upper lobe. Trachea and central bronchi are patent. Scans to the upper abdomen are limited due to technique. There is retained stool in the colon. IMPRESSION: 1. Small right pleural effusion has slightly increased in size. 2. Masslike consolidation right lower lobe is again seen, as is adjacent groundglass opacity and bronchial wall thickening. As stated previously, this could be infectious or neoplastic in nature. Recommend short-term follow-up CT chest, after acute treatment. 3. Small left upper lobe pulmonary nodule, could also be further evaluated on follow-up exam. Electronically signed by: Ed Bahena MD (09/05/2018 1:34 PM) [facility] DICTATED and SIGNED BY: ED BAHENA MD DATE: 09/05/18 1334 Laboratory Tests Test 09/06/18 05:26 White Blood Count 12.2 x10^3/uL (4.0-11.0) Red Blood Count 2.69 x10^6/uL (4.30-5.70) Hemoglobin 6.8 g/dL (13.0-17.5) Hematocrit 21.7 % (39.0-53.0) Mean Corpuscular Volume 81 fL (79-100) Mean Corpuscular Hemoglobin 25 pg (25-35) Mean Corpuscular Hemoglobin Concent 32 g/dL (31-37) Red Cell Distribution Width 21.5 % (11.5-14.5) Platelet Count 273 x10^3/uL (140-400) Neutrophils (%) (Auto) 81 % (31-73) Lymphocytes (%) (Auto) 10 % (24-48) Monocytes (%) (Auto) 8 % (0-9) Eosinophils (%) (Auto) 1 % (0-3) Basophils (%) (Auto) 0 % (0-3) Neutrophils # (Auto) 9.9 x10^3uL (1.8-7.7) Lymphocytes # (Auto) 1.2 x10^3/uL (1.0-4.8) Monocytes # (Auto) 0.9 x10^3/uL (0.0-1.1) Eosinophils # (Auto) 0.1 x10^3/uL (0.0-0.7) Basophils # (Auto) 0.0 x10^3/uL (0.0-0.2) Sodium Level 144 mmol/L (136-145) Potassium Level 3.9 mmol/L (3.5-5.1) Chloride Level 109 mmol/L (98-107) Carbon Dioxide Level 31 mmol/L (21-32) Anion Gap 4 (6-14) Blood Urea Nitrogen 10 mg/dL (8-26) Creatinine 0.7 mg/dL (0.7-1.3) Estimated GFR (Cockcroft-Gault) 131.0 BUN/Creatinine Ratio 14 (6-20) Glucose Level 84 mg/dL (70-99) Calcium Level 8.0 mg/dL (8.5-10.1) Total Bilirubin 0.4 mg/dL (0.2-1.0) Aspartate Amino Transf (AST/SGOT) 10 U/L (15-37) Alanine Aminotransferase (ALT/SGPT) 8 U/L (16-63) Alkaline Phosphatase 88 U/L (46-116) Total Protein 5.1 g/dL (6.4-8.2) Albumin 1.8 g/dL (3.4-5.0) Albumin/Globulin Ratio 0.5 (1.0-1.7) Comment Review of Relevant I have reviewed the following items minor (where applicable) has been applied. Labs Laboratory Tests Test 09/04/18 19:45 09/06/18 05:26 White Blood Count 16.0 x10^3/uL (4.0-11.0) 12.2 x10^3/uL (4.0-11.0) Red Blood Count 2.97 x10^6/uL (4.30-5.70) 2.69 x10^6/uL (4.30-5.70) Hemoglobin 7.5 g/dL (13.0-17.5) 6.8 g/dL (13.0-17.5) Hematocrit 23.9 % (39.0-53.0) 21.7 % (39.0-53.0) Mean Corpuscular Volume 81 fL (79-100) 81 fL (79-100) Mean Corpuscular Hemoglobin 25 pg (25-35) 25 pg (25-35) Mean Corpuscular Hemoglobin Concent 31 g/dL (31-37) 32 g/dL (31-37) Red Cell Distribution Width 20.4 % (11.5-14.5) 21.5 % (11.5-14.5) Platelet Count 281 x10^3/uL (140-400) 273 x10^3/uL (140-400) Neutrophils (%) (Auto) 86 % (31-73) 81 % (31-73) Lymphocytes (%) (Auto) 8 % (24-48) 10 % (24-48) Monocytes (%) (Auto) 7 % (0-9) 8 % (0-9) Eosinophils (%) (Auto) 0 % (0-3) 1 % (0-3) Basophils (%) (Auto) 0 % (0-3) 0 % (0-3) Neutrophils # (Auto) 13.6 x10^3uL (1.8-7.7) 9.9 x10^3uL (1.8-7.7) Lymphocytes # (Auto) 1.2 x10^3/uL (1.0-4.8) 1.2 x10^3/uL (1.0-4.8) Monocytes # (Auto) 1.0 x10^3/uL (0.0-1.1) 0.9 x10^3/uL (0.0-1.1) Eosinophils # (Auto) 0.0 x10^3/uL (0.0-0.7) 0.1 x10^3/uL (0.0-0.7) Basophils # (Auto) 0.0 x10^3/uL (0.0-0.2) 0.0 x10^3/uL (0.0-0.2) Sodium Level 144 mmol/L (136-145) 144 mmol/L (136-145) Potassium Level 4.2 mmol/L (3.5-5.1) 3.9 mmol/L (3.5-5.1) Chloride Level 106 mmol/L (98-107) 109 mmol/L (98-107) Carbon Dioxide Level 31 mmol/L (21-32) 31 mmol/L (21-32) Anion Gap 7 (6-14) 4 (6-14) Blood Urea Nitrogen 13 mg/dL (8-26) 10 mg/dL (8-26) Creatinine 0.9 mg/dL (0.7-1.3) 0.7 mg/dL (0.7-1.3) Estimated GFR (Cockcroft-Gault) 98.0 131.0 Glucose Level 103 mg/dL (70-99) 84 mg/dL (70-99) Calcium Level 8.1 mg/dL (8.5-10.1) 8.0 mg/dL (8.5-10.1) Phosphorus Level 2.7 mg/dL (2.6-4.7) Iron Level 12 ug/dL (65-175) Total Iron Binding Capacity 74 ug/dL (250-450) Iron Saturation 16 % (15-34) Ferritin 637 ng/mL (26-388) Albumin 1.8 g/dL (3.4-5.0) 1.8 g/dL (3.4-5.0) BUN/Creatinine Ratio 14 (6-20) Total Bilirubin 0.4 mg/dL (0.2-1.0) Aspartate Amino Transf (AST/SGOT) 10 U/L (15-37) Alanine Aminotransferase (ALT/SGPT) 8 U/L (16-63) Alkaline Phosphatase 88 U/L (46-116) Total Protein 5.1 g/dL (6.4-8.2) Albumin/Globulin Ratio 0.5 (1.0-1.7) Laboratory Tests Test 09/06/18 05:26 White Blood Count 12.2 x10^3/uL (4.0-11.0) Red Blood Count 2.69 x10^6/uL (4.30-5.70) Hemoglobin 6.8 g/dL (13.0-17.5) Hematocrit 21.7 % (39.0-53.0) Mean Corpuscular Volume 81 fL (79-100) Mean Corpuscular Hemoglobin 25 pg (25-35) Mean Corpuscular Hemoglobin Concent 32 g/dL (31-37) Red Cell Distribution Width 21.5 % (11.5-14.5) Platelet Count 273 x10^3/uL (140-400) Neutrophils (%) (Auto) 81 % (31-73) Lymphocytes (%) (Auto) 10 % (24-48) Monocytes (%) (Auto) 8 % (0-9) Eosinophils (%) (Auto) 1 % (0-3) Basophils (%) (Auto) 0 % (0-3) Neutrophils # (Auto) 9.9 x10^3uL (1.8-7.7) Lymphocytes # (Auto) 1.2 x10^3/uL (1.0-4.8) Monocytes # (Auto) 0.9 x10^3/uL (0.0-1.1) Eosinophils # (Auto) 0.1 x10^3/uL (0.0-0.7) Basophils # (Auto) 0.0 x10^3/uL (0.0-0.2) Sodium Level 144 mmol/L (136-145) Potassium Level 3.9 mmol/L (3.5-5.1) Chloride Level 109 mmol/L (98-107) Carbon Dioxide Level 31 mmol/L (21-32) Anion Gap 4 (6-14) Blood Urea Nitrogen 10 mg/dL (8-26) Creatinine 0.7 mg/dL (0.7-1.3) Estimated GFR (Cockcroft-Gault) 131.0 BUN/Creatinine Ratio 14 (6-20) Glucose Level 84 mg/dL (70-99) Calcium Level 8.0 mg/dL (8.5-10.1) Total Bilirubin 0.4 mg/dL (0.2-1.0) Aspartate Amino Transf (AST/SGOT) 10 U/L (15-37) Alanine Aminotransferase (ALT/SGPT) 8 U/L (16-63) Alkaline Phosphatase 88 U/L (46-116) Total Protein 5.1 g/dL (6.4-8.2) Albumin 1.8 g/dL (3.4-5.0) Albumin/Globulin Ratio 0.5 (1.0-1.7) Microbiology 09/04/18 Blood Culture - Preliminary, Resulted NO GROWTH AFTER 1 DAY Medications Current Medications Famotidine (Pepcid Vial) 20 mg 1X ONCE IVP Last administered on 09/01/18at 03:22; Start 09/01/18 at 03:15; Stop 09/01/18 at 03:16; Status DC Potassium Chloride (Klor-Con) 60 meq 1X ONCE PO Last administered on 09/01/18at 04:53; Start 09/01/18 at 04:45; Stop 09/01/18 at 04:46; Status DC Dicyclomine HCl (Bentyl) 10 mg TID PO Last administered on 09/06/18 08:28; S tart 09/01/18 at 09:00 Lisinopril (Prinivil) 10 mg DAILY PO Last administered on 09/06/18 08:29; Start 09/01/18 at 09:00 Pantoprazole Sodium (Protonix) 40 mg DAILYAC PO Last administered on 09/06/18at 08:30; Start 09/01/18 at 09:00 Polyethylene Glycol (miraLAX PACKET) 17 gm DAILY PO Last administered on 09/05/18at 13:22; Start 09/01/18 at 09:00; Stop 09/05/18 at 14:53; Status DC Potassium Chloride/Water 100 ml @ 100 mls/hr Q1H IV Last administered on 09/01/18at 23:10; Start 09/01/18 at 09:00; Stop 09/01/18 at 12:59; Status DC Albuterol/ Ipratropium (Duoneb) 3 ml RTQID NEB Last administered on 09/02/18at 20:14; Start 09/01/18 at 12:00; Stop 09/03/18 at 00:40; Status DC Labetalol HCl (Normodyne Iv Push) 10 mg Q4HRS PRN IVP HYPERTENSION, SEE COMMENTS; Start 09/01/18 at 10:00 Ondansetron HCl (Zofran) 4 mg PRN Q6HRS PRN IV NAUSEA/VOMITING; Start 09/02/18 at 07:00; Stop 09/02/18 at 17:01; Status DC Fentanyl Citrate (Fentanyl 2ml Vial) 25 mcg PRN Q5MIN PRN IV MILD PAIN; Start 09/02/18 at 07:00; Stop 09/02/18 at 10:40; Status DC Fentanyl Citrate (Fentanyl 2ml Vial) 50 mcg PRN Q5MIN PRN IV MODERATE TO SEVERE PAIN; Start 09/02/18 at 07:00; Stop 09/02/18 at 10:40; Status DC Morphine Sulfate (Morphine Sulfate) 1 mg PRN Q10MIN PRN IV SEVERE PAIN; Start 09/02/18 at 07:00; Stop 09/02/18 at 17:01; Status DC Ringer's Solution 1,000 ml @ 30 mls/hr Q24H IV Last administered on 09/02/18at 10:30; Start 09/02/18 at 07:00; Stop 09/02/18 at 10:41; Status DC Lidocaine HCl (Xylocaine-Mpf 1% 2ml Vial) 2 ml PRN 1X PRN ID PRIOR TO IV START; Start 09/02/18 at 07:00; Stop 09/02/18 at 10:41; Status DC Hydromorphone HCl (Dilaudid) 0.5 mg PRN Q10MIN PRN IV SEV PAIN, Second choice; Start 09/02/18 at 07:00; Stop 09/02/18 at 17:01; Status DC Prochlorperazine Edisylate (Compazine) 5 mg PACU PRN PRN IV NAUSEA, MRX1; Start 09/02/18 at 07:00; Stop 09/02/18 at 17:01; Status DC Olanzapine (ZyPREXA IM) 10 mg 1X ONCE IM Last administered on 09/01/18at 14:19; Start 09/01/18 at 13:45; Stop 09/01/18 at 13:46; Status DC Vancomycin HCl 1 gm/Sodium Chloride 250 ml @ 250 mls/hr Q12H IV ; Start 09/01/18 at 13:45; Status UNV Vancomycin HCl (Vanco Per Pharmacy) 1 each PRN DAILY PRN MC SEE COMMENTS Last administered on 09/02/18at 10:34; Start 09/01/18 at 14:00; Stop 09/03/18 at 12:40; Status DC Vancomycin HCl 1.25 gm/Sodium Chloride 250 ml @ 166.667 mls/hr 1X ONCE IV Last administered on 09/01/18at 21:39; Start 09/01/18 at 14:00; Stop 09/01/18 at 15:29; Status DC Olanzapine (ZyPREXA IM) 5 mg PRN BID PRN IM agitation Last administered on 09/04/18at 19:59; Start 09/01/18 at 14:00 Risperidone (RisperDAL) 1 mg QHS PO Last administered on 09/05/18at 21:28; Start 09/01/18 at 21:00 Ziprasidone (Geodon Im) 20 mg 1X ONCE IM Last administered on 09/01/18at 20:01; Start 09/01/18 at 17:00; Stop 09/01/18 at 17:01; Status DC Vancomycin HCl 750 mg/Sodium Chloride 250 ml @ 250 mls/hr Q24H IV Last administered on 09/02/18at 20:38; Start 09/02/18 at 21:30; Stop 09/03/18 at 12:40; Status DC Vancomycin HCl (Vancomycin Trough Level) 1 each 1X ONCE MC ; Start 09/03/18 at 21:00; Stop 09/03/18 at 21:00; Status DC Fentanyl Citrate (Fentanyl 2ml Vial) 25 mcg PRN Q5MIN PRN IV X 2 DOSES FOR PAIN; Start 09/02/18 at 10:30; Stop 09/02/18 at 14:41; Status DC Fentanyl Citrate (Fentanyl 2ml Vial) 50 mcg PRN Q5MIN PRN IV X 2 DOSES FOR PAIN; Start 09/02/18 at 10:30; Stop 09/02/18 at 14:41; Status DC Ringer's Solution 1,000 ml @ 125 mls/hr Q8H IV ; Start 09/02/18 at 10:29; Stop 09/02/18 at 14:41; Status DC Lidocaine HCl (Xylocaine-Mpf 1% 2ml Vial) 2 ml 1X PRN PRN ID IV START; Start 09/02/18 at 10:30; Stop 09/02/18 at 14:41; Status DC Propofol 20 ml @ As Directed STK-MED ONCE IV ; Start 09/02/18 at 11:13; Stop 09/02/18 at 11:14; Status DC Lidocaine HCl (Lidocaine Pf 2% Vial) 5 ml STK-MED ONCE .ROUTE ; Start 09/02/18 at 11:13; Stop 09/02/18 at 11:14; Status DC Albuterol Sulfate (Ventolin Neb Soln) 2.5 mg PRN QID PRN NEB WHEEZING; Start 09/03/18 at 00:45 Albuterol/ Ipratropium (Duoneb) 3 ml RTQID NEB Last administered on 09/06/18at 08:06; Start 09/03/18 at 08:15 Potassium Chloride/Water 50 ml @ 25 mls/hr Q2H IV Last administered on 09/03/18at 13:25; Start 09/03/18 at 11:00; Stop 09/03/18 at 14:59; Status DC Piperacillin Sod/ Tazobactam Sod 3.375 gm/Sodium Chloride 50 ml @ 100 mls/hr Q6HRS IV Last administered on 09/06/18at 05:14; Start 09/03/18 at 14:00 Alteplase, Recombinant (Cathflo For Central Catheter Clearance) 1 mg 1X ONCE INT CAT Last administered on 09/03/18at 17:01; Start 09/03/18 at 14:30; Stop 09/03/18 at 14:31; Status DC Iohexol (Omnipaque 300 Mg/ml) 75 ml 1X ONCE IV Last administered on 09/03/18at 17:30; Start 09/03/18 at 17:00; Stop 09/03/18 at 17:01; Status DC Info (CONTRAST GIVEN -- Rx MONITORING) 1 each PRN DAILY PRN MC SEE COMMENTS; Start 09/03/18 at 17:00; Stop 09/05/18 at 16:59; Status DC Potassium Chloride/Water 50 ml @ 50 mls/hr Q1H IV Last administered on 09/04/18at 13:00; Start 09/04/18 at 12:00; Stop 09/04/18 at 13:59; Status DC Lactobacillus Rhamnosus (Culturelle) 1 cap BID PO Last administered on 09/06/18at 08:28; Start 09/04/18 at 21:00 Polyethylene Glycol (miraLAX PACKET) 17 gm BID PO Last administered on 09/05/18at 21:29; Start 09/05/18 at 21:00 Active Scripts Active Reported Zinc Sulfate 220 Mg Tablet 220 Mg PO DAILY Calcium + Vitamin D Tablet (Calcium Carbonate/Vitamin D3) 1 Each Tablet 1 Each PO BID Acidophilus (Lactobacillus Acidophilus) 1 Each Capsule 2 Each PO TID Quetiapine Fumarate 25 Mg Tablet 25 Mg PO BID Lisinopril 10 Mg Tablet 10 Mg PO DAILY Protonix (Pantoprazole Sodium) 20 Mg Tablet. 40 Mg DAILY Miralax (Polyethylene Glycol 3350) 17 Gm Powd.pack 1 Pkt PO DAILY Alendronate Sodium 70 Mg Tablet 70 Mg PO WEEKLY Gabapentin 300 Mg Capsule 300 Mg PO TID Vitals/I & O Vital Sign - Last 24 Hours 09/05/18 09/05/18 09/05/18 09/05/18 11:05 11:39 13:22 15:00 Temp 98.2 98.2 98.2 98.2 Pulse 85 85 85 Resp 16 14 B/P (MAP) 137/64 (88) 137/64 143/71 (95) Pulse Ox 96 96 95 O2 Delivery Room Air Room Air Room Air 09/05/18 09/05/18 09/05/18 09/05/18 15:37 19:00 19:49 20:00 Temp 98.5 98.5 Pulse 96 Resp 15 B/P (MAP) 121/59 (79) Pulse Ox 97 94 O2 Delivery Room Air Room Air Room Air Room Air 09/05/18 09/06/18 09/06/18 09/06/18 22:36 02:39 06:31 08:08 Temp 98.5 97.3 98.5 97.3 Pulse 91 97 87 Resp 17 17 16 B/P (MAP) 117/45 (69) 146/76 (99) 144/65 (91) Pulse Ox 96 99 95 95 O2 Delivery Room Air Room Air Room Air Room Air 09/06/18 08:29 Pulse 87 B/P (MAP) 144/65 Intake and Output 09/05/18 09/05/18 09/06/18 15:00 23:00 07:00 Intake Total 410 ml Balance 410 ml Nutrition Consultation Dietary Evaluation: Recommendations by RD: Increase Calorie Intake, Protein supplementation, PPN/TPN Comments: REC advance diet to regular as able pending GI status; REC Roman BID and Ensure as tolerated/per pt request If unable to advance diet within 24 - 72 hrs, recommend TPN per followin g AA, 225 g dextrose, 20 g lipids Expected Outcomes/Goals: Diet advancement - not met, goal ongoing Interpretation of weight loss: >20% in 1 year Malnutrition Findings: Weight Status: Emaciated FULBRIGHT,LAKEISHA W MD September 06, 2018 10:39
--- NOTE | 2018-09-06 12:00 | NUR ---
Zosyn (Piperacillen) non-administered, due to Blood Transfusion in process at this time.
--- NOTE | 2018-09-06 12:20 | NUR ---
Patient's UP=746/101 one hour and fifteen minutes into blood transfusion; however, upon re-check 15 min. later the TR=425/83 and is being monitored; if the SBP remains over 160, then Labetalol is available PRN (see eMar orders).
--- NOTE | 2018-09-06 13:31 | PDOC ---
Subjective: Subjective: Says he can't get the phone to work and that he ate ice cream. Objective: Objective: 2 stools charted. Reviewed PC note - "treat medical conditions and consider Hospice eval at [place]" Vital Signs: Vital Signs Date Time Temp Pulse Resp B/P (MAP) Pulse Ox O2 Delivery O2 Flow Rate FiO2 09/06/18 12:35 98 148/83 09/06/18 12:20 97.9 18 97.9 09/06/18 11:46 100 Room Air 09/06/18 08:00 4.0 Labs: Laboratory Tests Test 09/06/18 05:26 White Blood Count 12.2 x10^3/uL Red Blood Count 2.69 x10^6/uL Hemoglobin 6.8 g/dL Hematocrit 21.7 % Mean Corpuscular Volume 81 fL Mean Corpuscular Hemoglobin 25 pg Mean Corpuscular Hemoglobin Concent 32 g/dL Red Cell Distribution Width 21.5 % Platelet Count 273 x10^3/uL Neutrophils (%) (Auto) 81 % Lymphocytes (%) (Auto) 10 % Monocytes (%) (Auto) 8 % Eosinophils (%) (Auto) 1 % Basophils (%) (Auto) 0 % Neutrophils # (Auto) 9.9 x10^3uL Lymphocytes # (Auto) 1.2 x10^3/uL Monocytes # (Auto) 0.9 x10^3/uL Eosinophils # (Auto) 0.1 x10^3/uL Basophils # (Auto) 0.0 x10^3/uL Sodium Level 144 mmol/L Potassium Level 3.9 mmol/L Chloride Level 109 mmol/L Carbon Dioxide Level 31 mmol/L Anion Gap 4 Blood Urea Nitrogen 10 mg/dL Creatinine 0.7 mg/dL Estimated GFR (Cockcroft-Gault) 131.0 BUN/Creatinine Ratio 14 Glucose Level 84 mg/dL Calcium Level 8.0 mg/dL Total Bilirubin 0.4 mg/dL Aspartate Amino Transf (AST/SGOT) 10 U/L Alanine Aminotransferase (ALT/SGPT) 8 U/L Alkaline Phosphatase 88 U/L Total Protein 5.1 g/dL Albumin 1.8 g/dL Albumin/Globulin Ratio 0.5 PE: GEN: NAD LUNGS: room air ABD: S/ND/NT NEURO/PSYCH: probably confused A/P: Dementia ERASMO, abnormal rectum/rectosigmoid on CT - transfusion in process RLL masslike consolidation - pulm following -- Continue same per GI. HILDA CASEY September 06, 2018 13:31
--- NOTE | 2018-09-06 15:20 | NUR ---
Blood transfusion complete; patient tolerated transfusion well without any signs of transfusion reaction.
--- NOTE | 2018-09-06 15:20 | NUR ---
SW following Pt. Spoke with Briana at [facility] regarding dc plan. SW discussed plan to dc back to [place] and have preferred hospice agency follow up for evaluation at the facility. SW faxed updates to [facility]. Will continue to follow.
--- NOTE | 2018-09-06 17:00 | NUR ---
Called family to possibly discuss palliative care, per Dr. Blackburn's request; however, there was no answer and the answering machine was full.
[2018-09-06] MEDS ORDERED: OLANZapine 5 MG TABLET PO PRN (20:30)
[2018-09-06] MEDS: QUEtiapine 25 MG TABLET. PO SCH (20:44)
[2018-09-06] MEDS: GABAPENTIN 300 MG CAPSULE. PO SCH (20:44)
[2018-09-07] MEDS: PIPERACILLIN/TAZOBACTAM 3.375 GM in IV NORMAL SALINE 50ML 50 ML IV SCH ×4 (00:16→17:07)
[2018-09-07 03:00] VITALS: BP 119/60
[2018-09-07 06:55] LABS: BASO % 1 % (0-3); EOS # 0.1 x10^3/uL (0.0-0.7); EOS % 1 % (0-3); HEMATOCRIT 30.9 % (39.0-53.0); HEMOGLOBIN 10.1 g/dL (13.0-17.5); LYMPH # 1.4 x10^3/uL (1.0-4.8); LYMPH % 14 % (24-48); MEAN CORPUSCULAR HEMOGLOBIN 27 pg (25-35); MEAN CORPUSCULAR HGB CONC 33 g/dL (31-37); MEAN CORPUSCULAR VOLUME 82 fL (79-100); MONO % 9 % (0-9); NEUT # 7.6 x10^3uL (1.8-7.7); NEUT % 75 % (31-73); PLATELET COUNT 323 x10^3/uL (140-400); RED BLOOD COUNT 3.77 x10^6/uL (4.30-5.70); RED CELL DISTRIBUTION WIDTH 19.9 % (11.5-14.5); WHITE BLOOD COUNT 10.2 x10^3/uL (4.0-11.0)
[2018-09-07 06:57] LABS: CALCIUM 8.1 mg/dL (8.5-10.1); CREATININE 0.8 mg/dL (0.7-1.3); GFR 112.3; POTASSIUM 3.7 mmol/L (3.5-5.1)
[2018-09-07 07:00] VITALS: BP 139/94
[2018-09-07] MEDS: IPRATRPIUM/ALBUTEROL 0.5/2.5MG 3 ML NEBU. NEB SCH ×4 (07:02→19:30)
[2018-09-07] MEDS: PANTOPRAZOLE 40 MG TABLET.DR. PO SCH (07:30)
[2018-09-07] MEDS: POLYETHYLENE GLYCOL 3350 17 GM PACKET. PO SCH ×2 (09:00→21:52)
[2018-09-07] MEDS: LACTOBACILLUS RHAMNOSUS GG 1 CAPSULE. PO SCH ×2 (09:00→21:52)
[2018-09-07] MEDS: DICYCLOMINE HCL 10 MG CAPSULE PO SCH ×3 (09:00→21:52)
[2018-09-07] MEDS: GABAPENTIN 300 MG CAPSULE. PO SCH ×3 (09:00→21:52)
[2018-09-07] MEDS: QUEtiapine 25 MG TABLET. PO SCH ×2 (09:00→21:52)
[2018-09-07] MEDS: LISINOPRIL 10 MG TABLET PO SCH (09:00)
--- NOTE | 2018-09-07 09:11 | PDOC ---
PULMONARY PROGRESS NOTES Subjective PT NOT MORE SOA Vitals Vital Signs Date Time Temp Pulse Resp B/P (MAP) Pulse Ox O2 Delivery O2 Flow Rate FiO2 09/07/18 07:03 Room Air 09/07/18 07:00 94.5 92 18 139/94 (109) 98 94.5 09/06/18 08:00 4.0 ROS: No Nausea, No Chest Pain, No Abdominal Pain, No Increase Cough General: Confused Lungs: Crackles Cardiovascular: S1, S2 Abdomen: Soft Neuro Exam: Alert Skin: Warm Labs Laboratory Tests Test 09/06/18 05:26 09/07/18 06:10 White Blood Count 12.2 x10^3/uL (4.0-11.0) 10.2 x10^3/uL (4.0-11.0) Red Blood Count 2.69 x10^6/uL (4.30-5.70) 3.77 x10^6/uL (4.30-5.70) Hemoglobin 6.8 g/dL (13.0-17.5) 10.1 g/dL (13.0-17.5) Hematocrit 21.7 % (39.0-53.0) 30.9 % (39.0-53.0) Mean Corpuscular Volume 81 fL (79-100) 82 fL (79-100) Mean Corpuscular Hemoglobin 25 pg (25-35) 27 pg (25-35) Mean Corpuscular Hemoglobin Concent 32 g/dL (31-37) 33 g/dL (31-37) Red Cell Distribution Width 21.5 % (11.5-14.5) 19.9 % (11.5-14.5) Platelet Count 273 x10^3/uL (140-400) 323 x10^3/uL (140-400) Neutrophils (%) (Auto) 81 % (31-73) 75 % (31-73) Lymphocytes (%) (Auto) 10 % (24-48) 14 % (24-48) Monocytes (%) (Auto) 8 % (0-9) 9 % (0-9) Eosinophils (%) (Auto) 1 % (0-3) 1 % (0-3) Basophils (%) (Auto) 0 % (0-3) 1 % (0-3) Neutrophils # (Auto) 9.9 x10^3uL (1.8-7.7) 7.6 x10^3uL (1.8-7.7) Lymphocytes # (Auto) 1.2 x10^3/uL (1.0-4.8) 1.4 x10^3/uL (1.0-4.8) Monocytes # (Auto) 0.9 x10^3/uL (0.0-1.1) 1.0 x10^3/uL (0.0-1.1) Eosinophils # (Auto) 0.1 x10^3/uL (0.0-0.7) 0.1 x10^3/uL (0.0-0.7) Basophils # (Auto) 0.0 x10^3/uL (0.0-0.2) 0.0 x10^3/uL (0.0-0.2) Sodium Level 144 mmol/L (136-145) 142 mmol/L (136-145) Potassium Level 3.9 mmol/L (3.5-5.1) 3.7 mmol/L (3.5-5.1) Chloride Level 109 mmol/L (98-107) 106 mmol/L (98-107) Carbon Dioxide Level 31 mmol/L (21-32) 27 mmol/L (21-32) Anion Gap 4 (6-14) 9 (6-14) Blood Urea Nitrogen 10 mg/dL (8-26) 11 mg/dL (8-26) Creatinine 0.7 mg/dL (0.7-1.3) 0.8 mg/dL (0.7-1.3) Estimated GFR (Cockcroft-Gault) 131.0 112.3 BUN/Creatinine Ratio 14 (6-20) Glucose Level 84 mg/dL (70-99) 89 mg/dL (70-99) Calcium Level 8.0 mg/dL (8.5-10.1) 8.1 mg/dL (8.5-10.1) Total Bilirubin 0.4 mg/dL (0.2-1.0) Aspartate Amino Transf (AST/SGOT) 10 U/L (15-37) Alanine Aminotransferase (ALT/SGPT) 8 U/L (16-63) Alkaline Phosphatase 88 U/L (46-116) Total Protein 5.1 g/dL (6.4-8.2) Albumin 1.8 g/dL (3.4-5.0) Albumin/Globulin Ratio 0.5 (1.0-1.7) Laboratory Tests Test 09/07/18 06:10 White Blood Count 10.2 x10^3/uL (4.0-11.0) Red Blood Count 3.77 x10^6/uL (4.30-5.70) Hemoglobin 10.1 g/dL (13.0-17.5) Hematocrit 30.9 % (39.0-53.0) Mean Corpuscular Volume 82 fL (79-100) Mean Corpuscular Hemoglobin 27 pg (25-35) Mean Corpuscular Hemoglobin Concent 33 g/dL (31-37) Red Cell Distribution Width 19.9 % (11.5-14.5) Platelet Count 323 x10^3/uL (140-400) Neutrophils (%) (Auto) 75 % (31-73) Lymphocytes (%) (Auto) 14 % (24-48) Monocytes (%) (Auto) 9 % (0-9) Eosinophils (%) (Auto) 1 % (0-3) Basophils (%) (Auto) 1 % (0-3) Neutrophils # (Auto) 7.6 x10^3uL (1.8-7.7) Lymphocytes # (Auto) 1.4 x10^3/uL (1.0-4.8) Monocytes # (Auto) 1.0 x10^3/uL (0.0-1.1) Eosinophils # (Auto) 0.1 x10^3/uL (0.0-0.7) Basophils # (Auto) 0.0 x10^3/uL (0.0-0.2) Sodium Level 142 mmol/L (136-145) Potassium Level 3.7 mmol/L (3.5-5.1) Chloride Level 106 mmol/L (98-107) Carbon Dioxide Level 27 mmol/L (21-32) Anion Gap 9 (6-14) Blood Urea Nitrogen 11 mg/dL (8-26) Creatinine 0.8 mg/dL (0.7-1.3) Estimated GFR (Cockcroft-Gault) 112.3 Glucose Level 89 mg/dL (70-99) Calcium Level 8.1 mg/dL (8.5-10.1) Medications Active Scripts Medications Dose Route/Sig Max Daily Dose Days Date Category Zinc Sulfate 220 Mg Tablet 220 Mg PO DAILY 09/01/18 Reported Calcium + Vitamin D Tablet (Calcium Carbonate/Vitamin D3) 1 Each Tablet 1 Each PO BID 09/01/18 Reported Acidophilus (Lactobacillus Acidophilus) 1 Each Capsule 2 Each PO TID 09/01/18 Reported Quetiapine Fumarate 25 Mg Tablet 25 Mg PO BID 09/01/18 Reported Lisinopril 10 Mg Tablet 10 Mg PO DAILY 09/01/18 Reported Protonix (Pantoprazole Sodium) 20 Mg Tablet.dr 40 Mg DAILY 09/01/18 Reported Miralax (Polyethylene Glycol 3350) 17 Gm Powd.pack 1 Pkt PO DAILY 09/26/17 Reported Alendronate Sodium 70 Mg Tablet 70 Mg PO WEEKLY 09/26/17 Reported Gabapentin 300 Mg Capsule 300 Mg PO TID 01/10/16 Reported Impression . IMPRESSION: 1. RLL MASS LIKE DENSITY/ GUZMAN NODULE 2. Anemia, present on admission, along with abnormal CT abdomen and pelvis suggesting colitis/proctitis, however, the possibility of neoplasm is also a concern. Colonoscopy not performed as he is not willing to undergo prep. 3. No significant history of tobacco use. 4. Severe protein-calorie malnutrition with an albumin level of 1.8. 5. Leukocytosis, likely related to infectious etiology. 6. RIGHT EFFUSION CT CHEST IMPRESSION: 1. Small right pleural effusion has slightly increased in size. 2. Masslike consolidation right lower lobe is again seen, as is adjacent groundglass opacity and bronchial wall thickening. As stated previously, this could be infectious or neoplastic in nature. Recommend short-term follow-up CT chest, after acute treatment. 3. Small left upper lobe pulmonary nodule, could also be further evaluated on follow-up exam. Plan . PT TO D/C IN AM WITH DAVI DOMINGO MD September 07, 2018 09:11
--- NOTE | 2018-09-07 09:53 | PDOC ---
Infectious Disease Note Subjective: Subjective Pt feels weak today Denies pain/SOA/N/V No fevers ROS: ROS Negative except for above. Vital Signs: Vital Signs Vital Signs Date Time Temp Pulse Resp B/P (MAP) Pulse Ox O2 Delivery O2 Flow Rate FiO2 09/07/18 07:03 Room Air 09/07/18 07:00 94.5 92 18 139/94 (109) 98 94.5 09/06/18 08:00 4.0 Physical Exam: PHYSICAL EXAM GENERAL: Alert, relaxed appearance, NAD HEENT: Oral cavity/pharynx moist LUNGS: Clear to auscultation. HEART: S1, S2. ABDOMEN: Nondistended, soft and nontender with bowel sounds present. EXTREMITIES: No gross edema or cyanosis. Loss of muscle mass. SKIN: Warm without generalized rash. Multiple wounds NEUROLOGIC: Alert, coop, RUE--PICC bandaged Medications: Inpatient Meds: Current Medications Medications (Trade) Dose Ordered Sig/Judith Start Time Stop Time Status Last Admin Dose Admin Albuterol Sulfate (Ventolin Neb Soln) 2.5 mg PRN QID PRN 09/03/18 00:45 Albuterol/ Ipratropium (Duoneb) 3 ml RTQID 09/03/18 08:15 09/07/18 07:02 3 ML Alteplase, Recombinant (Cathflo For Central Catheter Clearance) 1 mg 1X ONCE 09/03/18 14:30 09/03/18 14:31 DC 09/03/18 17:01 1 MG Dicyclomine HCl (Bentyl) 10 mg TID 09/01/18 09:00 09/06/18 20:44 10 MG Famotidine (Pepcid Vial) 20 mg 1X ONCE 09/01/18 03:15 09/01/18 03:16 DC 09/01/18 03:22 20 MG Fentanyl Citrate (Fentanyl 2ml Vial) 50 mcg PRN Q5MIN PRN 09/02/18 10:30 09/02/18 14:41 DC Gabapentin (Neurontin) 300 mg TID 09/06/18 21:00 09/06/18 20:44 300 MG Hydromorphone HCl (Dilaudid) 0.5 mg PRN Q10MIN PRN 09/02/18 07:00 09/02/18 17:01 DC Info (CONTRAST GIVEN -- Rx MONITORING) 1 each PRN DAILY PRN 09/03/18 17:00 09/05/18 16:59 DC Iohexol (Omnipaque 300 Mg/ml) 75 ml 1X ONCE 09/03/18 17:00 09/03/18 17:01 DC 09/03/18 17:30 75 ML Labetalol HCl (Normodyne Iv Push) 10 mg Q4HRS PRN 09/01/18 10:00 Lactobacillus Rhamnosus (Culturelle) 1 cap BID 09/04/18 21:00 09/06/18 20:44 1 CAP Lidocaine HCl (Lidocaine Pf 2% Vial) 5 ml STK-MED ONCE 09/02/18 11:13 09/02/18 11:14 DC Lidocaine HCl (Xylocaine-Mpf 1% 2ml Vial) 2 ml 1X PRN PRN 09/02/18 10:30 09/02/18 14:41 DC Lisinopril (Prinivil) 10 mg DAILY 09/01/18 09:00 09/06/18 08:29 10 MG Morphine Sulfate (Morphine Sulfate) 1 mg PRN Q10MIN PRN 09/02/18 07:00 09/02/18 17:01 DC Olanzapine (ZyPREXA IM) 5 mg PRN BID PRN 09/01/18 14:00 09/04/18 19:59 5 MG Olanzapine (ZyPREXA) 5 mg PRN BID PRN 09/06/18 20:30 09/06/18 20:44 5 MG Ondansetron HCl (Zofran) 4 mg PRN Q6HRS PRN 09/02/18 07:00 09/02/18 17:01 DC Pantoprazole Sodium (Protonix) 40 mg DAILYAC 09/01/18 09:00 09/06/18 08:30 40 MG Piperacillin Sod/ Tazobactam Sod 3.375 gm/Sodium Chloride 50 ml @ 100 mls/hr Q6HRS 09/03/18 14:00 09/07/18 05:31 100 MLS/HR Polyethylene Glycol (miraLAX PACKET) 17 gm BID 09/05/18 21:00 09/06/18 20:44 17 GM Potassium Chloride/Water 50 ml @ 50 mls/hr Q1H 09/04/18 12:00 09/04/18 13:59 DC 09/04/18 13:00 50 MLS/HR Potassium Chloride (Klor-Con) 60 meq 1X ONCE 09/01/18 04:45 09/01/18 04:46 DC 09/01/18 04:53 60 MEQ Prochlorperazine Edisylate (Compazine) 5 mg PACU PRN PRN 09/02/18 07:00 09/02/18 17:01 DC Propofol 20 ml @ As Directed STK-MED ONCE 09/02/18 11:13 09/02/18 11:14 DC Quetiapine Fumarate (SEROquel) 25 mg BID 09/06/18 21:00 09/06/18 20:44 25 MG Ringer's Solution 1,000 ml @ 125 mls/hr Q8H 09/02/18 10:29 09/02/18 14:41 DC Risperidone (RisperDAL) 1 mg QHS 09/01/18 21:00 09/06/18 20:33 DC 09/05/18 21:28 1 MG Vancomycin HCl (Vanco Per Pharmacy) 1 each PRN DAILY PRN 09/01/18 14:00 09/03/18 12:40 DC 09/02/18 10:34 1 EACH Vancomycin HCl (Vancomycin Trough Level) 1 each 1X ONCE 09/03/18 21:00 09/03/18 21:00 DC Vancomycin HCl 1.25 gm/Sodium Chloride 250 ml @ 166.667 mls/hr 1X ONCE 09/01/18 14:00 09/01/18 15:29 DC 09/01/18 21:39 166.667 MLS/HR Vancomycin HCl 750 mg/Sodium Chloride 250 ml @ 250 mls/hr Q24H 09/02/18 21:30 09/03/18 12:40 DC 09/02/18 20:38 250 MLS/HR Vancomycin HCl 1 gm/Sodium Chloride 250 ml @ 250 mls/hr Q12H 09/01/18 13:45 UNV Ziprasidone (Geodon Im) 20 mg 1X ONCE 09/01/18 17:00 09/01/18 17:01 DC 09/01/18 20:01 20 MG Labs: Lab Laboratory Tests Test 09/07/18 06:10 White Blood Count 10.2 x10^3/uL (4.0-11.0) Red Blood Count 3.77 x10^6/uL (4.30-5.70) Hemoglobin 10.1 g/dL (13.0-17.5) Hematocrit 30.9 % (39.0-53.0) Mean Corpuscular Volume 82 fL (79-100) Mean Corpuscular Hemoglobin 27 pg (25-35) Mean Corpuscular Hemoglobin Concent 33 g/dL (31-37) Red Cell Distribution Width 19.9 % (11.5-14.5) Platelet Count 323 x10^3/uL (140-400) Neutrophils (%) (Auto) 75 % (31-73) Lymphocytes (%) (Auto) 14 % (24-48) Monocytes (%) (Auto) 9 % (0-9) Eosinophils (%) (Auto) 1 % (0-3) Basophils (%) (Auto) 1 % (0-3) Neutrophils # (Auto) 7.6 x10^3uL (1.8-7.7) Lymphocytes # (Auto) 1.4 x10^3/uL (1.0-4.8) Monocytes # (Auto) 1.0 x10^3/uL (0.0-1.1) Eosinophils # (Auto) 0.1 x10^3/uL (0.0-0.7) Basophils # (Auto) 0.0 x10^3/uL (0.0-0.2) Sodium Level 142 mmol/L (136-145) Potassium Level 3.7 mmol/L (3.5-5.1) Chloride Level 106 mmol/L (98-107) Carbon Dioxide Level 27 mmol/L (21-32) Anion Gap 9 (6-14) Blood Urea Nitrogen 11 mg/dL (8-26) Creatinine 0.8 mg/dL (0.7-1.3) Estimated GFR (Cockcroft-Gault) 112.3 Glucose Level 89 mg/dL (70-99) Calcium Level 8.1 mg/dL (8.5-10.1) Micro 09/04/18 Blood Culture - Preliminary, Resulted NO GROWTH AFTER [address] Chest IMPRESSION: 1. Small right pleural effusion has slightly increased in size. 2. Masslike consolidation right lower lobe is again seen, as is adjacent groundglass opacity and bronchial wall thickening. As stated previously, this could be infectious or neoplastic in nature. Recommend short-term follow-up CT chest, after acute treatment. 3. Small left upper lobe pulmonary nodule, could also be further evaluated on follow-up exam. Objective: Assessment: Leukocytosis, better Chills Mass-like consolidation RLL on CT Possible Ileus vs partial bowel obstruction on KUB. f/u CT showed mucosal thickening involving the rectum and rectosigmoid junction. This may be due to colitis/proctitis. Constipation - last BM 5/4 Allergies sulfa and ciprofloxacin Acute anemia s/p PRBCs and EGD COPD Multiple wounds Debility Dementia anemia s/p PRBC Plan: Plan of Care Cont Zosyn UA not collected wound care team following GI following Condition poor JOEL CARBAJAL MD September 07, 2018 09:53
--- NOTE | 2018-09-07 10:17 | PDOC ---
PROGRESS NOTES Chief Complaint Chief Complaint A/P: Acute anemia - Hb 6.6 s/p 1u PRBC, f/u H&H daily. EGD 5/3 Hypokalemia - Replaced, monitor Chest pain - likely demand ischemia from acute anemia, cont telemetry COPD - will place on nebulizer treatments Leukocytosis - meets SIRS criteria, sepsis with pneumonia as source - high risk for gram negative, HCAP from SNF, will check procalcitonin and treat accordingly - vanco and zosyn Gen weakness, bl legs - SNF resident, will have PT/OT work with him when he is recovered more Chronic lower back pain - will cont pain medications prn HTN - cont home meds GERD - PPI Dementia with behavioral disorder - light during day, redirection. Zyprexa IM prn, risperidal at night Gluteal decubitus ulcers - wound care following Mass-like consolidation RLL on CT Segmental mucosal thickening involving the rectum and rectosigmoid junction. This may be due to colitis/proctitis. The possibility of neoplasm is not excluded. Correlate with colonoscopy findings. Large amount stool within the colon, consistent with constipation. Masslike consolidation within the right lower lobe with adjacent right infrahilar partially consolidated and groundglass infiltrate. This may be infectious or neoplastic in etiology. There is a superimposed small right pleural effusion and lower lobe bronchial wall thickening. SEVERE PROTEIN-CALORIC MALNUTRITION FEN - Cardiac diet if ok with GI PPX - SCDs, PPI DNR/DNI Dispo - 2 midnights inpatient d/c vancomycin Dose Zosyn CONSULT PALLIATIVE CARE If agrees patient could [facility] tomorrow CONSULT PULM 43 min pt exam, chart review, > 50% of time spent with exam, chart review, pt care coordination POOR PROGNOSIS History of Present Illness History of Present Illness 83 yo M w/ PMHx chronic back pain, prostate ca history, dementia is brought to ED by EMS from SNF due to chief complaint of epigastric abdominal pain started about midnight. Patient denies bleeding from his rectum. Potassium 2.4 with EKG showing long QT interval and incomplete RBBB. WBC 14 with CXR showing possible infection and COPD. Hb noted to be 6.6, was admitted to the ICU for concern for possible upper GI bleed and gluteal pressure ulcers. Had a difficult day yesterday, very agitated, required redirection, tori kwong. Pulled out his IV prior to blood and K infusions, required PICC insertion. Slept ok after that. Hb 7.6 and K 3.9 this morning. He is still somewhat agitated, yelling at nursing staff, refusing most care, especially refusing to be turned Q2hrs. special bed ordered for pressure ulcers. severe protein-caloric malnutrition Plan: EGD Operative Note EGD Meds propofol per anesthesia Pre-op dx anemia Post-o dx hiatal hernia non-erosive gastritis Plan advance diet iron supplements colonoscopy deferred due to patients inability to cooperate for prep telemetry floor 09/06 hgb dec 6.8 transfused Vitals Vitals Vital Signs Date Time Temp Pulse Resp B/P (MAP) Pulse Ox O2 Delivery O2 Flow Rate FiO2 09/07/18 07:03 Room Air 09/07/18 07:00 94.5 92 18 139/94 (109) 98 94.5 09/06/18 08:00 4.0 Physical Exam Physical Exam GENERAL: Alert, relaxed appearance, NAD HEENT: Oral cavity/pharynx moist LUNGS: Clear to auscultation. HEART: S1, S2. ABDOMEN: Nondistended, soft and nontender with bowel sounds present. EXTREMITIES: No gross edema or cyanosis. Loss of muscle mass. SKIN: Warm without generalized rash. Multiple wounds NEUROLOGIC: Alert, coop, RUE--PICC bandaged General: Alert, Cooperative, No acute distress, mild distress, Other Heart: Regular rate, Normal S1, Normal S2, No murmurs Lungs: Crackles Abdomen: Normal bowel sounds, Soft, No tenderness, No hepatosplenomegaly, No masses, Other (very thin) Extremities: No clubbing, No cyanosis, No edema, Normal pulses, No tenderness/swelling Skin: No rashes, No significant lesion, Other (Gluteal breakdown bilaterally) Labs LABS Laboratory Tests Test 09/07/18 06:10 White Blood Count 10.2 x10^3/uL (4.0-11.0) Red Blood Count 3.77 x10^6/uL (4.30-5.70) Hemoglobin 10.1 g/dL (13.0-17.5) Hematocrit 30.9 % (39.0-53.0) Mean Corpuscular Volume 82 fL (79-100) Mean Corpuscular Hemoglobin 27 pg (25-35) Mean Corpuscular Hemoglobin Concent 33 g/dL (31-37) Red Cell Distribution Width 19.9 % (11.5-14.5) Platelet Count 323 x10^3/uL (140-400) Neutrophils (%) (Auto) 75 % (31-73) Lymphocytes (%) (Auto) 14 % (24-48) Monocytes (%) (Auto) 9 % (0-9) Eosinophils (%) (Auto) 1 % (0-3) Basophils (%) (Auto) 1 % (0-3) Neutrophils # (Auto) 7.6 x10^3uL (1.8-7.7) Lymphocytes # (Auto) 1.4 x10^3/uL (1.0-4.8) Monocytes # (Auto) 1.0 x10^3/uL (0.0-1.1) Eosinophils # (Auto) 0.1 x10^3/uL (0.0-0.7) Basophils # (Auto) 0.0 x10^3/uL (0.0-0.2) Sodium Level 142 mmol/L (136-145) Potassium Level 3.7 mmol/L (3.5-5.1) Chloride Level 106 mmol/L (98-107) Carbon Dioxide Level 27 mmol/L (21-32) Anion Gap 9 (6-14) Blood Urea Nitrogen 11 mg/dL (8-26) Creatinine 0.8 mg/dL (0.7-1.3) Estimated GFR (Cockcroft-Gault) 112.3 Glucose Level 89 mg/dL (70-99) Calcium Level 8.1 mg/dL (8.5-10.1) Comment Review of Relevant I have reviewed the following items minor (where applicable) has been applied. Labs Laboratory Tests Test 09/06/18 05:26 09/07/18 06:10 White Blood Count 12.2 x10^3/uL (4.0-11.0) 10.2 x10^3/uL (4.0-11.0) Red Blood Count 2.69 x10^6/uL (4.30-5.70) 3.77 x10^6/uL (4.30-5.70) Hemoglobin 6.8 g/dL (13.0-17.5) 10.1 g/dL (13.0-17.5) Hematocrit 21.7 % (39.0-53.0) 30.9 % (39.0-53.0) Mean Corpuscular Volume 81 fL (79-100) 82 fL (79-100) Mean Corpuscular Hemoglobin 25 pg (25-35) 27 pg (25-35) Mean Corpuscular Hemoglobin Concent 32 g/dL (31-37) 33 g/dL (31-37) Red Cell Distribution Width 21.5 % (11.5-14.5) 19.9 % (11.5-14.5) Platelet Count 273 x10^3/uL (140-400) 323 x10^3/uL (140-400) Neutrophils (%) (Auto) 81 % (31-73) 75 % (31-73) Lymphocytes (%) (Auto) 10 % (24-48) 14 % (24-48) Monocytes (%) (Auto) 8 % (0-9) 9 % (0-9) Eosinophils (%) (Auto) 1 % (0-3) 1 % (0-3) Basophils (%) (Auto) 0 % (0-3) 1 % (0-3) Neutrophils # (Auto) 9.9 x10^3uL (1.8-7.7) 7.6 x10^3uL (1.8-7.7) Lymphocytes # (Auto) 1.2 x10^3/uL (1.0-4.8) 1.4 x10^3/uL (1.0-4.8) Monocytes # (Auto) 0.9 x10^3/uL (0.0-1.1) 1.0 x10^3/uL (0.0-1.1) Eosinophils # (Auto) 0.1 x10^3/uL (0.0-0.7) 0.1 x10^3/uL (0.0-0.7) Basophils # (Auto) 0.0 x10^3/uL (0.0-0.2) 0.0 x10^3/uL (0.0-0.2) Sodium Level 144 mmol/L (136-145) 142 mmol/L (136-145) Potassium Level 3.9 mmol/L (3.5-5.1) 3.7 mmol/L (3.5-5.1) Chloride Level 109 mmol/L (98-107) 106 mmol/L (98-107) Carbon Dioxide Level 31 mmol/L (21-32) 27 mmol/L (21-32) Anion Gap 4 (6-14) 9 (6-14) Blood Urea Nitrogen 10 mg/dL (8-26) 11 mg/dL (8-26) Creatinine 0.7 mg/dL (0.7-1.3) 0.8 mg/dL (0.7-1.3) Estimated GFR (Cockcroft-Gault) 131.0 112.3 BUN/Creatinine Ratio 14 (6-20) Glucose Level 84 mg/dL (70-99) 89 mg/dL (70-99) Calcium Level 8.0 mg/dL (8.5-10.1) 8.1 mg/dL (8.5-10.1) Total Bilirubin 0.4 mg/dL (0.2-1.0) Aspartate Amino Transf (AST/SGOT) 10 U/L (15-37) Alanine Aminotransferase (ALT/SGPT) 8 U/L (16-63) Alkaline Phosphatase 88 U/L (46-116) Total Protein 5.1 g/dL (6.4-8.2) Albumin 1.8 g/dL (3.4-5.0) Albumin/Globulin Ratio 0.5 (1.0-1.7) Laboratory Tests Test 09/07/18 06:10 White Blood Count 10.2 x10^3/uL (4.0-11.0) Red Blood Count 3.77 x10^6/uL (4.30-5.70) Hemoglobin 10.1 g/dL (13.0-17.5) Hematocrit 30.9 % (39.0-53.0) Mean Corpuscular Volume 82 fL (79-100) Mean Corpuscular Hemoglobin 27 pg (25-35) Mean Corpuscular Hemoglobin Concent 33 g/dL (31-37) Red Cell Distribution Width 19.9 % (11.5-14.5) Platelet Count 323 x10^3/uL (140-400) Neutrophils (%) (Auto) 75 % (31-73) Lymphocytes (%) (Auto) 14 % (24-48) Monocytes (%) (Auto) 9 % (0-9) Eosinophils (%) (Auto) 1 % (0-3) Basophils (%) (Auto) 1 % (0-3) Neutrophils # (Auto) 7.6 x10^3uL (1.8-7.7) Lymphocytes # (Auto) 1.4 x10^3/uL (1.0-4.8) Monocytes # (Auto) 1.0 x10^3/uL (0.0-1.1) Eosinophils # (Auto) 0.1 x10^3/uL (0.0-0.7) Basophils # (Auto) 0.0 x10^3/uL (0.0-0.2) Sodium Level 142 mmol/L (136-145) Potassium Level 3.7 mmol/L (3.5-5.1) Chloride Level 106 mmol/L (98-107) Carbon Dioxide Level 27 mmol/L (21-32) Anion Gap 9 (6-14) Blood Urea Nitrogen 11 mg/dL (8-26) Creatinine 0.8 mg/dL (0.7-1.3) Estimated GFR (Cockcroft-Gault) 112.3 Glucose Level 89 mg/dL (70-99) Calcium Level 8.1 mg/dL (8.5-10.1) Microbiology 09/04/18 Blood Culture - Preliminary, Resulted NO GROWTH AFTER 2 DAYS Medications Current Medications Famotidine (Pepcid Vial) 20 mg 1X ONCE IVP Last administered on 09/01/18at 03:22; Start 09/01/18 at 03:15; Stop 09/01/18 at 03:16; Status DC Potassium Chloride (Klor-Con) 60 meq 1X ONCE PO Last administered on 09/01/18at 04:53; Start 09/01/18 at 04:45; Stop 09/01/18 at 04:46; Status DC Dicyclomine HCl (Bentyl) 10 mg TID PO Last administered on 09/06/18at 20:44; Start 09/01/18 at 09:00 Lisinopril (Prinivil) 10 mg DAILY PO Last administered on 09/06/18at 08:29; Start 09/01/18 at 09:00 Pantoprazole Sodium (Protonix) 40 mg DAILYAC PO Last administered on 09/06/18at 08:30; Start 09/01/18 at 09:00 Polyethylene Glycol (miraLAX PACKET) 17 gm DAILY PO Last administered on 09/05/18at 13:22; Start 09/01/18 at 09:00; Stop 09/05/18 at 14:53; Status DC Potassium Chloride/Water 100 ml @ 100 mls/hr Q1H IV Last administered on 09/01/18at 23:10; Start 09/01/18 at 09:00; Stop 09/01/18 at 12:59; Status DC Albuterol/ Ipratropium (Duoneb) 3 ml RTQID NEB Last administered on 09/02/18at 20:14; Start 09/01/18 at 12:00; Stop 09/03/18 at 00:40; Status DC Labetalol HCl (Normodyne Iv Push) 10 mg Q4HRS PRN IVP HYPERTENSION, SEE COMMENTS; Start 09/01/18 at 10:00 Ondansetron HCl (Zofran) 4 mg PRN Q6HRS PRN IV NAUSEA/VOMITING; Start 09/02/18 at 07:00; Stop 09/02/18 at 17:01; Status DC Fentanyl Citrate (Fentanyl 2ml Vial) 25 mcg PRN Q5MIN PRN IV MILD PAIN; Start 09/02/18 at 07:00; Stop 09/02/18 at 10:40; Status DC Fentanyl Citrate (Fentanyl 2ml Vial) 50 mcg PRN Q5MIN PRN IV MODERATE TO SEVERE PAIN; Start 09/02/18 at 07:00; Stop 09/02/18 at 10:40; Status DC Morphine Sulfate (Morphine Sulfate) 1 mg PRN Q10MIN PRN IV SEVERE PAIN; Start 09/02/18 at 07:00; Stop 09/02/18 at 17:01; Status DC Ringer's Solution 1,000 ml @ 30 mls/hr Q24H IV Last administered on 09/02/18at 10:30; Start 09/02/18 at 07:00; Stop 09/02/18 at 10:41; Status DC Lidocaine HCl (Xylocaine-Mpf 1% 2ml Vial) 2 ml PRN 1X PRN ID PRIOR TO IV START; Start 09/02/18 at 07:00; Stop 09/02/18 at 10:41; Status DC Hydromorphone HCl (Dilaudid) 0.5 mg PRN Q10MIN PRN IV SEV PAIN, Second choice; Start 09/02/18 at 07:00; Stop 09/02/18 at 17:01; Status DC Prochlorperazine Edisylate (Compazine) 5 mg PACU PRN PRN IV NAUSEA, MRX1; Start 09/02/18 at 07:00; Stop 09/02/18 at 17:01; Status DC Olanzapine (ZyPREXA IM) 10 mg 1X ONCE IM Last administered on 09/01/18 14:19; Start 09/01/18 at 13:45; Stop 09/01/18 at 13:46; Status DC Vancomycin HCl 1 gm/Sodium Chloride 250 ml @ 250 mls/hr Q12H IV ; Start 09/01/18 at 13:45; Status UNV Vancomycin HCl (Vanco Per Pharmacy) 1 each PRN DAILY PRN MC SEE COMMENTS Last administered on 09/02/18at 10:34; Start 09/01/18 at 14:00; Stop 09/03/18 at 12:40; Status DC Vancomycin HCl 1.25 gm/Sodium Chloride 250 ml @ 166.667 mls/hr 1X ONCE IV Last administered on 09/01/18at 21:39; Start 09/01/18 at 14:00; Stop 09/01/18 at 15:29; Status DC Olanzapine (ZyPREXA IM) 5 mg PRN BID PRN IM agitation Last administered on 09/04/18at 19:59; Start 09/01/18 at 14:00 Risperidone (RisperDAL) 1 mg QHS PO Last administered on 09/05/18at 21:28; Start 09/01/18 at 21:00; Stop 09/06/18 at 20:33; Status DC Ziprasidone (Geodon Im) 20 mg 1X ONCE IM Last administered on 09/01/18at 20:01; Start 09/01/18 at 17:00; Stop 09/01/18 at 17:01; Status DC Vancomycin HCl 750 mg/Sodium Chloride 250 ml @ 250 mls/hr Q24H IV Last administered on 09/02/18at 20:38; Start 09/02/18 at 21:30; Stop 09/03/18 at 12:40; Status DC Vancomycin HCl (Vancomycin Trough Level) 1 each 1X ONCE MC ; Start 09/03/18 at 21:00; Stop 09/03/18 at 21:00; Status DC Fentanyl Citrate (Fentanyl 2ml Vial) 25 mcg PRN Q5MIN PRN IV X 2 DOSES FOR MARTIN N; Start 09/02/18 at 10:30; Stop 09/02/18 at 14:41; Status DC Fentanyl Citrate (Fentanyl 2ml Vial) 50 mcg PRN Q5MIN PRN IV X 2 DOSES FOR PAIN; Start 09/02/18 at 10:30; Stop 09/02/18 at 14:41; Status DC Ringer's Solution 1,000 ml @ 125 mls/hr Q8H IV ; Start 09/02/18 at 10:29; Stop 09/02/18 at 14:41; Status DC Lidocaine HCl (Xylocaine-Mpf 1% 2ml Vial) 2 ml 1X PRN PRN ID IV START; Start 09/02/18 at 10:30; Stop 09/02/18 at 14:41; Status DC Propofol 20 ml @ As Directed STK-MED ONCE IV ; Start 09/02/18 at 11:13; Stop 09/02/18 at 11:14; Status DC Lidocaine HCl (Lidocaine Pf 2% Vial) 5 ml STK-MED ONCE .ROUTE ; Start 09/02/18 at 11:13; Stop 09/02/18 at 11:14; Status DC Albuterol Sulfate (Ventolin Neb Soln) 2.5 mg PRN QID PRN NEB WHEEZING; Start 09/03/18 at 00:45 Albuterol/ Ipratropium (Duoneb) 3 ml RTQID NEB Last administered on 09/07/18at 07:02; Start 09/03/18 at 08:15 Potassium Chloride/Water 50 ml @ 25 mls/hr Q2H IV Last administered on 09/03/18at 13:25; Start 09/03/18 at 11:00; Stop 09/03/18 at 14:59; Status DC Piperacillin Sod/ Tazobactam Sod 3.375 gm/Sodium Chloride 50 ml @ 100 mls/hr Q6HRS IV Last administered on 09/07/18at 05:31; Start 09/03/18 at 14:00 Alteplase, Recombinant (Cathflo For Central Catheter Clearance) 1 mg 1X ONCE INT CAT Last administered on 09/03/18 17:01; Start 09/03/18 at 14:30; Stop 09/03/18 at 14:31; Status DC Iohexol (Omnipaque 300 Mg/ml) 75 ml 1X ONCE IV Last administered on 09/03/18 17:30; Start 09/03/18 at 17:00; Stop 09/03/18 at 17:01; Status DC Info (CONTRAST GIVEN -- Rx MONITORING) 1 each PRN DAILY PRN MC SEE COMMENTS; Start 09/03/18 at 17:00; Stop 09/05/18 at 16:59; Status DC Potassium Chloride/Water 50 ml @ 50 mls/hr Q1H IV Last administered on 09/04/18 13:00; Start 09/04/18 at 12:00; Stop 09/04/18 at 13:59; Status DC Lactobacillus Rhamnosus (Culturelle) 1 cap BID PO Last administered on 09/06/18 20:44; Start 09/04/18 at 21:00 Polyethylene Glycol (miraLAX PACKET) 17 gm BID PO Last administered on 09/06/18 20:44; Start 09/05/18 at 21:00 Gabapentin (Neurontin) 300 mg TID PO Last administered on 09/06/18 20:44; Start 09/06/18 at 21:00 Quetiapine Fumarate (SEROquel) 25 mg BID PO Last administered on 09/06/18 20:44; Start 09/06/18 at 21:00 Olanzapine (ZyPREXA) 5 mg PRN BID PRN PO AGITATION Last administered on 09/06/18 20:44; Start 09/06/18 at 20:30 Active Scripts Active Reported Zinc Sulfate 220 Mg Tablet 220 Mg PO DAILY Calcium + Vitamin D Tablet (Calcium Carbonate/Vitamin D3) 1 Each Tablet 1 Each PO BID Acidophilus (Lactobacillus Acidophilus) 1 Each Capsule 2 Each PO TID Quetiapine Fumarate 25 Mg Tablet 25 Mg PO BID Lisinopril 10 Mg Tablet 10 Mg PO DAILY Protonix (Pantoprazole Sodium) 20 Mg Tablet.dr 40 Mg DAILY Miralax (Polyethylene Glycol 3350) 17 Gm Powd.pack 1 Pkt PO DAILY Alendronate Sodium 70 Mg Tablet 70 Mg PO WEEKLY Gabapentin 300 Mg Capsule 300 Mg PO TID Vitals/I & O Vital Sign - Last 24 Hours 09/06/18 09/06/18 09/06/18 09/06/18 11:05 11:06 11:20 11:46 Temp 97.6 97.6 97.9 97.6 97.6 97.9 Pulse 97 97 84 Resp 14 14 18 B/P (MAP) 141/68 141/68 (92) 117/72 Pulse Ox 94 100 O2 Delivery Room Air Room Air 09/06/18 09/06/18 09/06/18 09/06/18 12:20 12:35 13:20 13:29 Temp 97.9 97.5 97.5 97.9 97.5 97.5 Pulse 98 98 82 82 Resp 18 16 16 B/P (MAP) 161/101 148/83 148/83 148/83 (104) Pulse Ox 100 O2 Delivery Room Air 09/06/18 09/06/18 09/06/18 09/06/18 14:20 15:00 15:20 15:56 Temp 97.7 98.1 98.1 97.7 98.1 98.1 Pulse 98 90 112 Resp 16 14 16 B/P (MAP) 157/87 160/89 (112) 160/89 Pulse Ox 93 O2 Delivery Room Air Room Air 09/06/18 09/06/18 09/06/18 09/07/18 19:00 20:21 23:00 03:00 Temp 98.5 98.3 98.0 98.5 98.3 98.0 Pulse 91 90 83 Resp 14 14 14 B/P (MAP) 152/75 (100) 128/65 (86) 119/60 (79) Pulse Ox 100 97 94 O2 Delivery Room Air Room Air Room Air Room Air 09/07/18 09/07/18 07:00 07:03 Temp 94.5 94.5 Pulse 92 Resp 18 B/P (MAP) 139/94 (109) Pulse Ox 98 O2 Delivery Room Air Room Air Intake and Output 09/06/18 09/06/18 09/07/18 15:00 23:00 07:00 Intake Total 310 ml 240 ml 50 ml Balance 310 ml 240 ml 50 ml Nutrition Consultation Dietary Evaluation: Recommendations by RD: Increase Calorie Intake, Protein supplementation Comments: REC continue regular diet Roman BID ordered on lunch and dinner tray REC mvi q day per wound protocal Expected Outcomes/Goals: to meet > 75% est nutr needs Interpretation of weight loss: >20% in 1 year Malnutrition Findings: Weight Status: Emaciated LAKEISHA PHILLIP MD September 07, 2018 10:17
[2018-09-07 11:00] VITALS: BP 127/72
--- NOTE | 2018-09-07 12:01 | PDOC2 ---
PALLIATIVE CARE Palliative Care Note Palliative Care Patient more agitated today. Refusing medications. Spoke with Dr. Blackburn. Discussed discharge plan. Attempted to reach Sahil--. [phone]; [phone]. Message to return call. Had discussed Hospice. If agrees patient could be discharge back to [facility] with hospice tomorrow JIM RUBIO September 07, 2018 12:01
--- NOTE | 2018-09-07 13:43 | PDOC ---
Objective: Objective: Per RN - plans for home w/ hospice. Reviewed chart - agitated, refusing meds, unable to reach family. Vital Signs: Vital Signs Date Time Temp Pulse Resp B/P (MAP) Pulse Ox O2 Delivery O2 Flow Rate FiO2 09/07/18 11:06 Room Air 09/07/18 11:00 95.9 97 18 127/72 (90) 96 95.9 09/06/18 08:00 4.0 Labs: Laboratory Tests Test 09/07/18 06:10 White Blood Count 10.2 x10^3/uL Red Blood Count 3.77 x10^6/uL Hemoglobin 10.1 g/dL Hematocrit 30.9 % Mean Corpuscular Volume 82 fL Mean Corpuscular Hemoglobin 27 pg Mean Corpuscular Hemoglobin Concent 33 g/dL Red Cell Distribution Width 19.9 % Platelet Count 323 x10^3/uL Neutrophils (%) (Auto) 75 % Lymphocytes (%) (Auto) 14 % Monocytes (%) (Auto) 9 % Eosinophils (%) (Auto) 1 % Basophils (%) (Auto) 1 % Neutrophils # (Auto) 7.6 x10^3uL Lymphocytes # (Auto) 1.4 x10^3/uL Monocytes # (Auto) 1.0 x10^3/uL Eosinophils # (Auto) 0.1 x10^3/uL Basophils # (Auto) 0.0 x10^3/uL Sodium Level 142 mmol/L Potassium Level 3.7 mmol/L Chloride Level 106 mmol/L Carbon Dioxide Level 27 mmol/L Anion Gap 9 Blood Urea Nitrogen 11 mg/dL Creatinine 0.8 mg/dL Estimated GFR (Cockcroft-Gault) 112.3 Glucose Level 89 mg/dL Calcium Level 8.1 mg/dL PE: GEN: NAD NEURO/PSYCH: sleeping, did not awaken A/P: Dementia ERASMO, abnormal rectum/rectosigmoid on CT - transfusion in process -- Hospice plans noted. HILDA CASEY September 07, 2018 13:43
--- NOTE | 2018-09-07 13:46 | NUR ---
Wound Care: Per RN, pt is pursuing palliative care and will be discharging today or tomorrow on hospice. All wounds pictured and measured per protocol (see detailed assessments). Pt incontinent of bowel and bladder, brief and chucks changed. All dressings changed and orange sheet with dressing recommendations left in room to be sent with pt on DC. Recommending minimal aquacel ag and foam or ABD dressings to wounds to manage moisture and odor. Pt requested to be positioned on his back so he could eat lunch. Pt is most comfortable on his back, and is reluctant to be repositioned. Padded protective heel boots on bilaterally. Remains on [place] bed at this time, resumed air flow. Call light in reach, communicated with Cat RN
--- NOTE | 2018-09-07 14:00 | NUR ---
SW following Pt. Discussed with RN, PC and Physician. Patient more agitated today and refusing medication. PC attempting to reach to pt's to discuss the possibility of pt going back [facility] with hospice tomorrow due to current decline. ARIANNE spoke with Briana at [facility] and they use [facility]. ARIANNE also discussed with Briana pt's is able to sign pt to hospice even if she is not DPOA as she will be next of kin. SW faxed referral to [facility] in mean time. Acceptance and admission pending. Will continue to follow.
[2018-09-07 15:00] VITALS: BP 114/55
[2018-09-07 19:18] VITALS: BP 131/68
[2018-09-07 23:00] VITALS: BP 105/53
[2018-09-08] MEDS: PIPERACILLIN/TAZOBACTAM 3.375 GM in IV NORMAL SALINE 50ML 50 ML IV SCH ×2 (00:43→06:11)
[2018-09-08 02:30] VITALS: BP 103/62
[2018-09-08 07:00] VITALS: BP 125/60
[2018-09-08] MEDS: IPRATRPIUM/ALBUTEROL 0.5/2.5MG 3 ML NEBU. NEB SCH ×2 (07:19→11:27)
--- NOTE | 2018-09-08 08:56 | PDOC ---
PULMONARY PROGRESS NOTES Subjective PT NOT MORE SOA Vitals Vital Signs Date Time Temp Pulse Resp B/P (MAP) Pulse Ox O2 Delivery O2 Flow Rate FiO2 09/08/18 07:19 Room Air 09/08/18 07:00 97.1 87 18 125/60 (81) 95 97.1 ROS: No Nausea, No Chest Pain, No Abdominal Pain, No Increase Cough General: Confused Lungs: Crackles Cardiovascular: S1, S2 Abdomen: Soft Neuro Exam: Alert Skin: Warm Labs Laboratory Tests Test 09/07/18 06:10 White Blood Count 10.2 x10^3/uL (4.0-11.0) Red Blood Count 3.77 x10^6/uL (4.30-5.70) Hemoglobin 10.1 g/dL (13.0-17.5) Hematocrit 30.9 % (39.0-53.0) Mean Corpuscular Volume 82 fL (79-100) Mean Corpuscular Hemoglobin 27 pg (25-35) Mean Corpuscular Hemoglobin Concent 33 g/dL (31-37) Red Cell Distribution Width 19.9 % (11.5-14.5) Platelet Count 323 x10^3/uL (140-400) Neutrophils (%) (Auto) 75 % (31-73) Lymphocytes (%) (Auto) 14 % (24-48) Monocytes (%) (Auto) 9 % (0-9) Eosinophils (%) (Auto) 1 % (0-3) Basophils (%) (Auto) 1 % (0-3) Neutrophils # (Auto) 7.6 x10^3uL (1.8-7.7) Lymphocytes # (Auto) 1.4 x10^3/uL (1.0-4.8) Monocytes # (Auto) 1.0 x10^3/uL (0.0-1.1) Eosinophils # (Auto) 0.1 x10^3/uL (0.0-0.7) Basophils # (Auto) 0.0 x10^3/uL (0.0-0.2) Sodium Level 142 mmol/L (136-145) Potassium Level 3.7 mmol/L (3.5-5.1) Chloride Level 106 mmol/L (98-107) Carbon Dioxide Level 27 mmol/L (21-32) Anion Gap 9 (6-14) Blood Urea Nitrogen 11 mg/dL (8-26) Creatinine 0.8 mg/dL (0.7-1.3) Estimated GFR (Cockcroft-Gault) 112.3 Glucose Level 89 mg/dL (70-99) Calcium Level 8.1 mg/dL (8.5-10.1) Medications Active Scripts Medications Dose Route/Sig Max Daily Dose Days Date Category Zinc Sulfate 220 Mg Tablet 220 Mg PO DAILY 09/01/18 Reported Calcium + Vitamin D Tablet (Calcium Carbonate/Vitamin D3) 1 Each Tablet 1 Each PO BID 09/01/18 Reported Acidophilus (Lactobacillus Acidophilus) 1 Each Capsule 2 Each PO TID 09/01/18 Reported Quetiapine Fumarate 25 Mg Tablet 25 Mg PO BID 09/01/18 Reported Lisinopril 10 Mg Tablet 10 Mg PO DAILY 09/01/18 Reported Protonix (Pantoprazole Sodium) 20 Mg Tablet.dr 40 Mg DAILY 09/01/18 Reported Miralax (Polyethylene Glycol 3350) 17 Gm Powd.pack 1 Pkt PO DAILY 09/26/17 Reported Alendronate Sodium 70 Mg Tablet 70 Mg PO WEEKLY 09/26/17 Reported Gabapentin 300 Mg Capsule 300 Mg PO TID 01/10/16 Reported Impression . IMPRESSION: 1. RLL MASS LIKE DENSITY/ GUZMAN NODULE 2. Anemia, present on admission, along with abnormal CT abdomen and pelvis suggesting colitis/proctitis, however, the possibility of neoplasm is also a concern. Colonoscopy not performed as he is not willing to undergo prep. 3. No significant history of tobacco use. 4. Severe protein-calorie malnutrition with an albumin level of 1.8. 5. Leukocytosis, likely related to infectious etiology. 6. RIGHT EFFUSION CT CHEST IMPRESSION: 1. Small right pleural effusion has slightly increased in size. 2. Masslike consolidation right lower lobe is again seen, as is adjacent groundglass opacity and bronchial wall thickening. As stated previously, this could be infectious or neoplastic in nature. Recommend short-term follow-up CT chest, after acute treatment. 3. Small left upper lobe pulmonary nodule, could also be further evaluated on follow-up exam. Plan . PT TO D/C IN AM WITH DAVI DOMINGO MD September 08, 2018 08:56
[2018-09-08] MEDS: LISINOPRIL 10 MG TABLET PO SCH (09:00)
[2018-09-08] MEDS: POLYETHYLENE GLYCOL 3350 17 GM PACKET. PO SCH (09:00)
--- NOTE | 2018-09-08 09:02 | PDOC ---
Infectious Disease Note Subjective: Subjective Pt feels weak today somewhat confused intermitently Denies pain/SOA/N/V No fevers D/W RN transitioned to hospice ROS: ROS Negative except for above. Vital Signs: Vital Signs Vital Signs Date Time Temp Pulse Resp B/P (MAP) Pulse Ox O2 Delivery O2 Flow Rate FiO2 09/08/18 07:19 Room Air 09/08/18 07:00 97.1 87 18 125/60 (81) 95 97.1 Physical Exam: PHYSICAL EXAM GENERAL: Alert, relaxed appearance, NAD HEENT: Oral cavity/pharynx moist LUNGS: Clear to auscultation. HEART: S1, S2. ABDOMEN: Nondistended, soft and nontender with bowel sounds present. EXTREMITIES: No gross edema or cyanosis. Loss of muscle mass. SKIN: Warm without generalized rash. Multiple wounds NEUROLOGIC: Alert, coop, RUE--PICC bandaged Medications: Inpatient Meds: Current Medications Medications (Trade) Dose Ordered Sig/Judith Start Time Stop Time Status Last Admin Dose Admin Albuterol Sulfate (Ventolin Neb Soln) 2.5 mg PRN QID PRN 09/03/18 00:45 Albuterol/ Ipratropium (Duoneb) 3 ml RTQID 09/03/18 08:15 09/08/18 07:19 3 ML Alteplase, Recombinant (Cathflo For Central Catheter Clearance) 1 mg 1X ONCE 09/03/18 14:30 09/03/18 14:31 DC 09/03/18 17:01 1 MG Dicyclomine HCl (Bentyl) 10 mg TID 09/01/18 09:00 09/07/18 21:52 10 MG Famotidine (Pepcid Vial) 20 mg 1X ONCE 09/01/18 03:15 09/01/18 03:16 DC 09/01/18 03:22 20 MG Fentanyl Citrate (Fentanyl 2ml Vial) 50 mcg PRN Q5MIN PRN 09/02/18 10:30 09/02/18 14:41 DC Gabapentin (Neurontin) 300 mg TID 09/06/18 21:00 09/07/18 21:52 300 MG Hydromorphone HCl (Dilaudid) 0.5 mg PRN Q10MIN PRN 09/02/18 07:00 09/02/18 17:01 DC Info (CONTRAST GIVEN -- Rx MONITORING) 1 each PRN DAILY PRN 09/03/18 17:00 09/05/18 16:59 DC Iohexol (Omnipaque 300 Mg/ml) 75 ml 1X ONCE 09/03/18 17:00 09/03/18 17:01 DC 09/03/18 17:30 75 ML Labetalol HCl (Normodyne Iv Push) 10 mg Q4HRS PRN 09/01/18 10:00 Lactobacillus Rhamnosus (Culturelle) 1 cap BID 09/04/18 21:00 09/07/18 21:52 1 CAP Lidocaine HCl (Lidocaine Pf 2% Vial) 5 ml STK-MED ONCE 09/02/18 11:13 09/02/18 11:14 DC Lidocaine HCl (Xylocaine-Mpf 1% 2ml Vial) 2 ml 1X PRN PRN 09/02/18 10:30 09/02/18 14:41 DC Lisinopril (Prinivil) 10 mg DAILY 09/01/18 09:00 09/06/18 08:29 10 MG Morphine Sulfate (Morphine Sulfate) 1 mg PRN Q10MIN PRN 09/02/18 07:00 09/02/18 17:01 DC Olanzapine (ZyPREXA IM) 5 mg PRN BID PRN 09/01/18 14:00 09/04/18 19:59 5 MG Olanzapine (ZyPREXA) 5 mg PRN BID PRN 09/06/18 20:30 09/06/18 20:44 5 MG Ondansetron HCl (Zofran) 4 mg PRN Q6HRS PRN 09/02/18 07:00 09/02/18 17:01 DC Pantoprazole Sodium (Protonix) 40 mg DAILYAC 09/01/18 09:00 09/06/18 08:30 40 MG Piperacillin Sod/ Tazobactam Sod 3.375 gm/Sodium Chloride 50 ml @ 100 mls/hr Q6HRS 09/03/18 14:00 09/08/18 06:11 100 MLS/HR Polyethylene Glycol (miraLAX PACKET) 17 gm BID 09/05/18 21:00 09/07/18 21:52 17 GM Potassium Chloride/Water 50 ml @ 50 mls/hr Q1H 09/04/18 12:00 09/04/18 13:59 DC 09/04/18 13:00 50 MLS/HR Potassium Chloride (Klor-Con) 60 meq 1X ONCE 09/01/18 04:45 09/01/18 04:46 DC 09/01/18 04:53 60 MEQ Prochlorperazine Edisylate (Compazine) 5 mg PACU PRN PRN 09/02/18 07:00 09/02/18 17:01 DC Propofol 20 ml @ As Directed STK-MED ONCE 09/02/18 11:13 09/02/18 11:14 DC Quetiapine Fumarate (SEROquel) 25 mg BID 09/06/18 21:00 09/07/18 21:52 25 MG Ringer's Solution 1,000 ml @ 125 mls/hr Q8H 09/02/18 10:29 09/02/18 14:41 DC Risperidone (RisperDAL) 1 mg QHS 09/01/18 21:00 09/06/18 20:33 DC 09/05/18 21:28 1 MG Vancomycin HCl (Vanco Per Pharmacy) 1 each PRN DAILY PRN 09/01/18 14:00 09/03/18 12:40 DC 09/02/18 10:34 1 EACH Vancomycin HCl (Vancomycin Trough Level) 1 each 1X ONCE 09/03/18 21:00 09/03/18 21:00 DC Vancomycin HCl 1.25 gm/Sodium Chloride 250 ml @ 166.667 mls/hr 1X ONCE 09/01/18 14:00 09/01/18 15:29 DC 09/01/18 21:39 166.667 MLS/HR Vancomycin HCl 750 mg/Sodium Chloride 250 ml @ 250 mls/hr Q24H 09/02/18 21:30 09/03/18 12:40 DC 09/02/18 20:38 250 MLS/HR Vancomycin HCl 1 gm/Sodium Chloride 250 ml @ 250 mls/hr Q12H 09/01/18 13:45 UNV Ziprasidone (Geodon Im) 20 mg 1X ONCE 09/01/18 17:00 09/01/18 17:01 DC 09/01/18 20:01 20 MG Labs: Micro 09/04/18 Blood Culture - Preliminary, Resulted NO GROWTH AFTER [address] Chest IMPRESSION: 1. Small right pleural effusion has slightly increased in size. 2. Masslike consolidation right lower lobe is again seen, as is adjacent groundglass opacity and bronchial wall thickening. As stated previously, this could be infectious or neoplastic in nature. Recommend short-term follow-up CT chest, after acute treatment. 3. Small left upper lobe pulmonary nodule, could also be further evaluated on follow-up exam. Objective: Assessment: Leukocytosis, better Chills Mass-like consolidation RLL on CT Possible Ileus vs partial bowel obstruction on KUB. f/u CT showed mucosal thickening involving the rectum and rectosigmoid junction. This may be due to colitis/proctitis. Constipation - last BM 5/ Allergies sulfa and ciprofloxacin Acute anemia s/p PRBCs and EGD COPD Multiple wounds Debility Dementia anemia s/p PRBC Plan: Plan of Care DC Zosyn start augmentin,can be dc depending on goals of treatment at dc Prognosis poor transitioned to hospice JOEL CARBAJAL MD September 08, 2018 09:02
--- NOTE | 2018-09-08 09:24 | NUR ---
SW following pt. SW spoke with pt's regarding dc plan. SW discussed pt has declined from Previous Conversation with PC and could go back to [facility] with hospice today. reported she wants pt to return back to facility and have [facility] follow him in the [facility]. SW Phoned and faxed referral to [facility]. ARIANNE spoke with Olena at hospice agency and informed her about plan. [facility] will be contacting pt's to set up a time for a visit at [facility]. PC and Physician notified. SW will await for dc order and proceed accordingly.
[2018-09-08] MEDS: GABAPENTIN 300 MG CAPSULE. PO SCH ×2 (09:30→14:00)
[2018-09-08] MEDS: LACTOBACILLUS RHAMNOSUS GG 1 CAPSULE. PO SCH (09:30)
[2018-09-08] MEDS: PANTOPRAZOLE 40 MG TABLET.DR. PO SCH (09:31)
[2018-09-08] MEDS: QUEtiapine 25 MG TABLET. PO SCH (09:31)
[2018-09-08] MEDS: DICYCLOMINE HCL 10 MG CAPSULE PO SCH ×2 (09:31→14:00)
--- NOTE | 2018-09-08 09:32 | PDOC ---
PROGRESS NOTES Chief Complaint Chief Complaint diagnosis, DISCHARGE Acute anemia - Hb 6.6 s/p 1u PRBC, f/u H&H daily. EGD 5/3 Hypokalemia - Replaced, monitor Chest pain - likely demand ischemia from acute anemia, cont telemetry COPD - will place on nebulizer treatments Leukocytosis - meets SIRS criteria, sepsis with pneumonia as source - high risk for gram negative, HCAP from SNF, will check procalcitonin and treat accordingly - vanco and zosyn Gen weakness, bl legs - SNF resident, will have PT/OT work with him when he is recovered more Chronic lower back pain - will cont pain medications prn HTN - cont home meds GERD - PPI Dementia with behavioral disorder - light during day, redirection. Zyprexa IM prn, risperidal at night Gluteal decubitus ulcers - wound care following Mass-like consolidation RLL on CT Segmental mucosal thickening involving the rectum and rectosigmoid junction. This may be due to colitis/proctitis. The possibility of neoplasm is not excluded. Correlate with colonoscopy findings. Large amount stool within the colon, consistent with constipation. Masslike consolidation within the right lower lobe with adjacent right infrahilar partially consolidated and groundglass infiltrate. This may be infectious or neoplastic in etiology. There is a superimposed small right pleural effusion and lower lobe bronchial wall thickening. SEVERE PROTEIN-CALORIC MALNUTRITION very poor prognosis, ok for HOSPICE INTAKE FEN - Cardiac diet if ok with GI PPX - SCDs, PPI DNR/DNI Dispo - 2 midnights inpatient d/c vancomycin Dose Zosyn CONSULT PALLIATIVE CARE If agrees patient could be discharge back to [facility] with hospice TODAY CONSULT PULM 33 min pt exam D/C PLANNING, chart review, > 50% of time spent with exam, chart review, pt care coordination POOR PROGNOSIS History of Present Illness History of Present Illness 83 yo M w/ PMHx chronic back pain, prostate ca history, dementia is brought to ED by EMS from SNF due to chief complaint of epigastric abdominal pain started about midnight. Patient denies bleeding from his rectum. Potassium 2.4 with EKG showing long QT interval and incomplete RBBB. WBC 14 with CXR showing possible infection and COPD. Hb noted to be 6.6, was admitted to the ICU for concern for possible upper GI bleed and gluteal pressure ulcers. Had a difficult day yesterday, very agitated, required redirection, tori kwong. Pulled out his IV prior to blood and K infusions, required PICC insertion. Slept ok after that. Hb 7.6 and K 3.9 this morning. He is still somewhat agitated, yelling at nursing staff, refusing most care, especially refusing to be turned Q2hrs. special bed ordered for pressure ulcers. severe protein-caloric malnutrition Plan: EGD Operative Note EGD Meds propofol per anesthesia Pre-op dx anemia Post-o dx hiatal hernia non-erosive gastritis Plan advance diet iron supplements colonoscopy deferred due to patients inability to cooperate for prep telemetry floor 09/06 hgb dec 6.8 transfused Vitals Vitals Vital Signs Date Time Temp Pulse Resp B/P (MAP) Pulse Ox O2 Delivery O2 Flow Rate FiO2 09/08/18 07:19 Room Air 09/08/18 07:00 97.1 87 18 125/60 (81) 95 97.1 Physical Exam Physical Exam GENERAL: Alert, relaxed appearance, NAD HEENT: Oral cavity/pharynx moist LUNGS: Clear to auscultation. HEART: S1, S2. ABDOMEN: Nondistended, soft and nontender with bowel sounds present. EXTREMITIES: No gross edema or cyanosis. Loss of muscle mass. SKIN: Warm without generalized rash. Multiple wounds NEUROLOGIC: Alert, coop, RUE--PICC bandaged General: Alert, Cooperative, No acute distress, mild distress, Other Heart: Regular rate, Normal S1, Normal S2, No murmurs Lungs: Crackles Abdomen: Normal bowel sounds, Soft, No tenderness, No hepatosplenomegaly, No masses, Other (very thin) Extremities: No clubbing, No cyanosis, No edema, Normal pulses, No tenderness/swelling Skin: No rashes, No significant lesion, Other (Gluteal breakdown bilaterally) Comment Review of Relevant I have reviewed the following items minor (where applicable) has been applied. Labs Laboratory Tests Test 09/07/18 06:10 White Blood Count 10.2 x10^3/uL (4.0-11.0) Red Blood Count 3.77 x10^6/uL (4.30-5.70) Hemoglobin 10.1 g/dL (13.0-17.5) Hematocrit 30.9 % (39.0-53.0) Mean Corpuscular Volume 82 fL (79-100) Mean Corpuscular Hemoglobin 27 pg (25-35) Mean Corpuscular Hemoglobin Concent 33 g/dL (31-37) Red Cell Distribution Width 19.9 % (11.5-14.5) Platelet Count 323 x10^3/uL (140-400) Neutrophils (%) (Auto) 75 % (31-73) Lymphocytes (%) (Auto) 14 % (24-48) Monocytes (%) (Auto) 9 % (0-9) Eosinophils (%) (Auto) 1 % (0-3) Basophils (%) (Auto) 1 % (0-3) Neutrophils # (Auto) 7.6 x10^3uL (1.8-7.7) Lymphocytes # (Auto) 1.4 x10^3/uL (1.0-4.8) Monocytes # (Auto) 1.0 x10^3/uL (0.0-1.1) Eosinophils # (Auto) 0.1 x10^3/uL (0.0-0.7) Basophils # (Auto) 0.0 x10^3/uL (0.0-0.2) Sodium Level 142 mmol/L (136-145) Potassium Level 3.7 mmol/L (3.5-5.1) Chloride Level 106 mmol/L (98-107) Carbon Dioxide Level 27 mmol/L (21-32) Anion Gap 9 (6-14) Blood Urea Nitrogen 11 mg/dL (8-26) Creatinine 0.8 mg/dL (0.7-1.3) Estimated GFR (Cockcroft-Gault) 112.3 Glucose Level 89 mg/dL (70-99) Calcium Level 8.1 mg/dL (8.5-10.1) Microbiology 09/04/18 Blood Culture - Preliminary, Resulted NO GROWTH AFTER 3 DAYS Medications Current Medications Famotidine (Pepcid Vial) 20 mg 1X ONCE IVP Last administered on 09/01/18at 03:22; Start 09/01/18 at 03:15; Stop 09/01/18 at 03:16; Status DC Potassium Chloride (Klor-Con) 60 meq 1X ONCE PO Last administered on 09/01/18at 04:53; Start 09/01/18 at 04:45; Stop 09/01/18 at 04:46; Status DC Dicyclomine HCl (Bentyl) 10 mg TID PO Last administered on 09/07/18at 21:52; Start 09/01/18 at 09:00 Lisinopril (Prinivil) 10 mg DAILY PO Last administered on 09/06/18at 08:29; Start 09/01/18 at 09:00 Pantoprazole Sodium (Protonix) 40 mg DAILYAC PO Last administered on 09/06/18at 08:30; Start 09/01/18 at 09:00 Polyethylene Glycol (miraLAX PACKET) 17 gm DAILY PO Last administered on 09/05/18at 13:22; Start 09/01/18 at 09:00; Stop 09/05/18 at 14:53; Status DC Potassium Chloride/Water 100 ml @ 100 mls/hr Q1H IV Last administered on 09/01/18at 23:10; Start 09/01/18 at 09:00; Stop 09/01/18 at 12:59; Status DC Albuterol/ Ipratropium (Duoneb) 3 ml RTQID NEB Last administered on 09/02/18at 20:14; Start 09/01/18 at 12:00; Stop 09/03/18 at 00:40; Status DC Labetalol HCl (Normodyne Iv Push) 10 mg Q4HRS PRN IVP HYPERTENSION, SEE COMMENTS; Start 09/01/18 at 10:00 Ondansetron HCl (Zofran) 4 mg PRN Q6HRS PRN IV NAUSEA/VOMITING; Start 09/02/18 at 07:00; Stop 09/02/18 at 17:01; Status DC Fentanyl Citrate (Fentanyl 2ml Vial) 25 mcg PRN Q5MIN PRN IV MILD PAIN; Start 09/02/18 at 07:00; Stop 09/02/18 at 10:40; Status DC Fentanyl Citrate (Fentanyl 2ml Vial) 50 mcg PRN Q5MIN PRN IV MODERATE TO SEVERE PAIN; Start 09/02/18 at 07:00; Stop 09/02/18 at 10:40; Status DC Morphine Sulfate (Morphine Sulfate) 1 mg PRN Q10MIN PRN IV SEVERE PAIN; Start 09/02/18 at 07:00; Stop 09/02/18 at 17:01; Status DC Ringer's Solution 1,000 ml @ 30 mls/hr Q24H IV Last administered on 09/02/18at 10:30; Start 09/02/18 at 07:00; Stop 09/02/18 at 10:41; Status DC Lidocaine HCl (Xylocaine-Mpf 1% 2ml Vial) 2 ml PRN 1X PRN ID PRIOR TO IV START; Start 09/02/18 at 07:00; Stop 09/02/18 at 10:41; Status DC Hydromorphone HCl (Dilaudid) 0.5 mg PRN Q10MIN PRN IV SEV PAIN, Second choice; Start 09/02/18 at 07:00; Stop 09/02/18 at 17:01; Status DC Prochlorperazine Edisylate (Compazine) 5 mg PACU PRN PRN IV NAUSEA, MRX1; Start 09/02/18 at 07:00; Stop 09/02/18 at 17:01; Status DC Olanzapine (ZyPREXA IM) 10 mg 1X ONCE IM Last administered on 09/01/18at 14:19; Start 09/01/18 at 13:45; Stop 09/01/18 at 13:46; Status DC Vancomycin HCl 1 gm/Sodium Chloride 250 ml @ 250 mls/hr Q12H IV ; Start 09/01/18 at 13:45; Status UNV Vancomycin HCl (Vanco Per Pharmacy) 1 each PRN DAILY PRN MC SEE COMMENTS Last administered on 09/02/18at 10:34; Start 09/01/18 at 14:00; Stop 09/03/18 at 12:40; Status DC Vancomycin HCl 1.25 gm/Sodium Chloride 250 ml @ 166.667 mls/hr 1X ONCE IV Last administered on 09/01/18at 21:39; Start 09/01/18 at 14:00; Stop 09/01/18 at 15:29; Status DC Olanzapine (ZyPREXA IM) 5 mg PRN BID PRN IM agitation Last administered on 09/04/18at 19:59; Start 09/01/18 at 14:00 Risperidone (RisperDAL) 1 mg QHS PO Last administered on 09/05/18 21:28; Start 09/01/18 at 21:00; Stop 09/06/18 at 20:33; Status DC Ziprasidone (Geodon Im) 20 mg 1X ONCE IM Last administered on 09/01/18at 20:01; Start 09/01/18 at 17:00; Stop 09/01/18 at 17:01; Status DC Vancomycin HCl 750 mg/Sodium Chloride 250 ml @ 250 mls/hr Q24H IV Last administered on 09/02/18at 20:38; Start 09/02/18 at 21:30; Stop 09/03/18 at 12:40; Status DC Vancomycin HCl (Vancomycin Trough Level) 1 each 1X ONCE MC ; Start 09/03/18 at 21:00; Stop 09/03/18 at 21:00; Status DC Fentanyl Citrate (Fentanyl 2ml Vial) 25 mcg PRN Q5MIN PRN IV X 2 DOSES FOR PAIN; Start 09/02/18 at 10:30; Stop 09/02/18 at 14:41; Status DC Fentanyl Citrate (Fentanyl 2ml Vial) 50 mcg PRN Q5MIN PRN IV X 2 DOSES FOR PAIN; Start 09/02/18 at 10:30; Stop 09/02/18 at 14:41; Status DC Ringer's Solution 1,000 ml @ 125 mls/hr Q8H IV ; Start 09/02/18 at 10:29; Stop 09/02/18 at 14:41; Status DC Lidocaine HCl (Xylocaine-Mpf 1% 2ml Vial) 2 ml 1X PRN PRN ID IV START; Start 09/02/18 at 10:30; Stop 09/02/18 at 14:41; Status DC Propofol 20 ml @ As Directed STK-MED ONCE IV ; Start 09/02/18 at 11:13; Stop 09/02/18 at 11:14; Status DC Lidocaine HCl (Lidocaine Pf 2% Vial) 5 ml STK-MED ONCE .ROUTE ; Start 09/02/18 at 11:13; Stop 09/02/18 at 11:14; Status DC Albuterol Sulfate (Ventolin Neb Soln) 2.5 mg PRN QID PRN NEB WHEEZING; Start 09/03/18 at 00:45 Albuterol/ Ipratropium (Duoneb) 3 ml RTQID NEB Last administered on 09/08/18at 07:19; Start 09/03/18 at 08:15 Potassium Chloride/Water 50 ml @ 25 mls/hr Q2H IV Last administered on 09/03/18 13:25; Start 09/03/18 at 11:00; Stop 09/03/18 at 14:59; Status DC Piperacillin Sod/ Tazobactam Sod 3.375 gm/Sodium Chloride 50 ml @ 100 mls/hr Q6HRS IV Last administered on 09/08/18at 06:11; Start 09/03/18 at 14:00 Alteplase, Recombinant (Cathflo For Central Catheter Clearance) 1 mg 1X ONCE INT CAT Last administered on 09/03/18 17:01; Start 09/03/18 at 14:30; Stop 09/03/18 at 14:31; Status DC Iohexol (Omnipaque 300 Mg/ml) 75 ml 1X ONCE IV Last administered on 09/03/18 17:30; Start 09/03/18 at 17:00; Stop 09/03/18 at 17:01; Status DC Info (CONTRAST GIVEN -- Rx MONITORING) 1 each PRN DAILY PRN MC SEE COMMENTS; Start 09/03/18 at 17:00; Stop 09/05/18 at 16:59; Status DC Potassium Chloride/Water 50 ml @ 50 mls/hr Q1H IV Last administered on 09/04/18 13:00; Start 09/04/18 at 12:00; Stop 09/04/18 at 13:59; Status DC Lactobacillus Rhamnosus (Culturelle) 1 cap BID PO Last administered on 09/07/18 21:52; Start 09/04/18 at 21:00 Polyethylene Glycol (miraLAX PACKET) 17 gm BID PO Last administered on 09/07/18 21:52; Start 09/05/18 at 21:00 Gabapentin (Neurontin) 300 mg TID PO Last administered on 09/07/18 21:52; Start 09/06/18 at 21:00 Quetiapine Fumarate (SEROquel) 25 mg BID PO Last administered on 09/07/18 21:52; Start 09/06/18 at 21:00 Olanzapine (ZyPREXA) 5 mg PRN BID PRN PO AGITATION Last administered on 09/06/18 20:44; Start 09/06/18 at 20:30 Active Scripts Active Reported Zinc Sulfate 220 Mg Tablet 220 Mg PO DAILY Calcium + Vitamin D Tablet (Calcium Carbonate/Vitamin D3) 1 Each Tablet 1 Each PO BID Acidophilus (Lactobacillus Acidophilus) 1 Each Capsule 2 Each PO TID Quetiapine Fumarate 25 Mg Tablet 25 Mg PO BID Lisinopril 10 Mg Tablet 10 Mg PO DAILY Protonix (Pantoprazole Sodium) 20 Mg Tablet.dr 40 Mg DAILY Miralax (Polyethylene Glycol 3350) 17 Gm Powd.pack 1 Pkt PO DAILY Alendronate Sodium 70 Mg Tablet 70 Mg PO WEEKLY Gabapentin 300 Mg Capsule 300 Mg PO TID Vitals/I & O Vital Sign - Last 24 Hours 09/07/18 09/07/18 09/07/18 09/07/18 11:00 11:06 15:00 15:41 Temp 95.9 97.8 95.9 97.8 Pulse 97 90 Resp 18 18 B/P (MAP) 127/72 (90) 114/55 (74) Pulse Ox 96 100 O2 Delivery Room Air Room Air Room Air Room Air 09/07/18 09/07/18 09/07/18 09/08/18 19:18 19:30 23:00 02:30 Temp 98.6 98.3 98.1 98.6 98.3 98.1 Pulse 108 63 101 Resp 16 16 15 B/P (MAP) 131/68 (89) 105/53 (70) 103/62 (76) Pulse Ox 96 94 O2 Delivery Room Air Room Air Room Air Room Air 09/08/18 09/08/18 07:00 07:19 Temp 97.1 97.1 Pulse 87 Resp 18 B/P (MAP) 125/60 (81) Pulse Ox 95 O2 Delivery Room Air Room Air Intake and Output 09/07/18 09/07/18 09/08/18 15:00 23:00 07:00 Intake Total 170 ml Balance 170 ml Nutrition Consultation Dietary Evaluation: Recommendations by RD: Increase Calorie Intake, Protein supplementation Comments: REC continue regular diet Roman BID ordered on lunch and dinner tray REC mvi q day per wound protocal Expected Outcomes/Goals: to meet > 75% est nutr needs Interpretation of weight loss: >20% in 1 year Malnutrition Findings: Weight Status: Emaciated LAKEISHA PHILLIP MD September 08, 2018 09:32
[2018-09-08 11:00] VITALS: BP 111/61
--- NOTE | 2018-09-08 11:30 | PDOC3 ---
Discharge Summary Date of Admission: September 01, 2018 Date of Discharge: September 08, 2018 Follow-Up: 1-2 days Admitting Diagnosis comment: diagnosis, DISCHARGE Acute anemia - Hb 6.6 s/p 1u PRBC, f/u H&H daily. EGD 5/3 Hypokalemia - Replaced, monitor Chest pain - likely demand ischemia from acute anemia, cont telemetry COPD - will place on nebulizer treatments Leukocytosis - meets SIRS criteria, sepsis with pneumonia as source - high risk for gram negative, HCAP from SNF, will check procalcitonin and treat accordingly - vanco and zosyn Gen weakness, bl legs - SNF resident, will have PT/OT work with him when he is recovered more Chronic lower back pain - will cont pain medications prn HTN - cont home meds GERD - PPI Dementia with behavioral disorder - light during day, redirection. Zyprexa IM prn, risperidal at night Gluteal decubitus ulcers - wound care following Mass-like consolidation RLL on CT Segmental mucosal thickening involving the rectum and rectosigmoid junction. This may be due to colitis/proctitis. The possibility of neoplasm is not excluded. Correlate with colonoscopy findings. Large amount stool within the colon, consistent with constipation. Masslike consolidation within the right lower lobe with adjacent right infrahilar partially consolidated and groundglass infiltrate. This may be infectious or neoplastic in etiology. There is a superimposed small right pleural effusion and lower lobe bronchial wall thickening. SEVERE PROTEIN-CALORIC MALNUTRITION very poor prognosis, ok for HOSPICE INTAKE FEN - Cardiac diet if ok with GI PPX - SCDs, PPI DNR/DNI Dispo - 2 midnights inpatient d/c vancomycin Dose Zosyn CONSULT PALLIATIVE CARE If agrees patient could be discharge back [facility] hospice TODAY CONSULT PULM 33 min pt exam D/C PLANNING, chart review, > 50% of time spent with exam, chart review, pt care coordination POOR PROGNOSIS History of Present Illness History of Present Illness 83 yo M w/ PMHx chronic back pain, prostate ca history, dementia is brought to ED by EMS from SNF due to chief complaint of epigastric abdominal pain started about midnight. Patient denies bleeding from his rectum. Potassium 2.4 with EKG showing long QT interval and incomplete RBBB. WBC 14 with CXR showing possible infection and COPD. Hb noted to be 6.6, was admitted to the ICU for concern for possible upper GI bleed and gluteal pressure ulcers. Had a difficult day 09/03, very agitated, required redirection, tori kwong. Pulled out his IV prior to blood and K infusions, required PICC insertion. Slept ok after that. Hb 7.6 and K 3.9 . OCC , yelling at nursing staff, refusing most care, especially refusing to be turned Q2hrs. special bed ordered for pressure ulcers. severe protein-caloric malnutrition Plan: EGD Operative Note EGD Meds propofol per anesthesia Pre-op dx anemia Post-o dx hiatal hernia non-erosive gastritis Plan advance diet iron supplements colonoscopy deferred due to patients inability to cooperate for prep telemetry floor 09/06 hgb dec 6.8 transfused Vitals Vitals Vital Signs Date Time Temp Pulse Resp B/P (MAP) Pulse Ox O2 Delivery O2 Flow Rate FiO2 09/08/18 07:19 Room Air 09/08/18 07:00 97.1 87 18 125/60 (81) 95 97.1 Physical Exam Physical Exam GENERAL: Alert, relaxed appearance, NAD HEENT: Oral cavity/pharynx moist LUNGS: Clear to auscultation. HEART: S1, S2. ABDOMEN: Nondistended, soft and nontender with bowel sounds present. EXTREMITIES: No gross edema or cyanosis. Loss of muscle mass. SKIN: Warm without generalized rash. Multiple wounds NEUROLOGIC: Alert, coop, CONFUSED TO DETAILS RUE--PICC bandaged General: t, Cooperative, No acute distress, mild distress, Other Heart: Regular rate, Normal S1, Normal S2, No murmurs Lungs: Crackles Abdomen: Normal bowel sounds, Soft, No tenderness, No hepatosplenomegaly, No masses, Other (very thin) Extremities: No clubbing, No cyanosis, No edema, Normal pulses, No tenderness/swelling Skin: No rashes, No significant lesion, Other (Gluteal breakdown bilaterally) Brief Hospital Course Mr. Chamorro is a 83 old [sex] who presented with [ ] Discharge Medications Current Medications Famotidine (Pepcid Vial) 20 mg 1X ONCE IVP Last administered on 09/01/18at 03:22; Start 09/01/18 at 03:15; Stop 09/01/18 at 03:16; Status DC Potassium Chloride (Klor-Con) 60 meq 1X ONCE PO Last administered on 09/01/18at 04:53; Start 09/01/18 at 04:45; Stop 09/01/18 at 04:46; Status DC Dicyclomine HCl (Bentyl) 10 mg TID PO Last administered on 09/08/18at 09:31; Start 09/01/18 at 09:00 Lisinopril (Prinivil) 10 mg DAILY PO Last administered on 09/06/18at 08:29; Start 09/01/18 at 09:00 Pantoprazole Sodium (Protonix) 40 mg DAILYAC PO Last administered on 09/08/18 09:31; Start 09/01/18 at 09:00 Polyethylene Glycol (miraLAX PACKET) 17 gm DAILY PO Last administered on 09/05/18at 13:22; Start 09/01/18 at 09:00; Stop 09/05/18 at 14:53; Status DC Potassium Chloride/Water 100 ml @ 100 mls/hr Q1H IV Last administered on 09/01/18at 23:10; Start 09/01/18 at 09:00; Stop 09/01/18 at 12:59; Status DC Albuterol/ Ipratropium (Duoneb) 3 ml RTQID NEB Last administered on 09/02/18at 20:14; Start 09/01/18 at 12:00; Stop 09/03/18 at 00:40; Status DC Labetalol HCl (Normodyne Iv Push) 10 mg Q4HRS PRN IVP HYPERTENSION, SEE COMMENTS; Start 09/01/18 at 10:00 Ondansetron HCl (Zofran) 4 mg PRN Q6HRS PRN IV NAUSEA/VOMITING; Start 09/02/18 at 07:00; Stop 09/02/18 at 17:01; Status DC Fentanyl Citrate (Fentanyl 2ml Vial) 25 mcg PRN Q5MIN PRN IV MILD PAIN; Start 09/02/18 at 07:00; Stop 09/02/18 at 10:40; Status DC Fentanyl Citrate (Fentanyl 2ml Vial) 50 mcg PRN Q5MIN PRN IV MODERATE TO SEVERE PAIN; Start 09/02/18 at 07:00; Stop 09/02/18 at 10:40; Status DC Morphine Sulfate (Morphine Sulfate) 1 mg PRN Q10MIN PRN IV SEVERE PAIN; Start 09/02/18 at 07:00; Stop 09/02/18 at 17:01; Status DC Ringer's Solution 1,000 ml @ 30 mls/hr Q24H IV Last administered on 09/02/18at 10:30; Start 09/02/18 at 07:00; Stop 09/02/18 at 10:41; Status DC Lidocaine HCl (Xylocaine-Mpf 1% 2ml Vial) 2 ml PRN 1X PRN ID PRIOR TO IV START; Start 09/02/18 at 07:00; Stop 09/02/18 at 10:41; Status DC Hydromorphone HCl (Dilaudid) 0.5 mg PRN Q10MIN PRN IV SEV PAIN, Second choice; Start 09/02/18 at 07:00; Stop 09/02/18 at 17:01; Status DC Prochlorperazine Edisylate (Compazine) 5 mg PACU PRN PRN IV NAUSEA, MRX1; Start 09/02/18 at 07:00; Stop 09/02/18 at 17:01; Status DC Olanzapine (ZyPREXA IM) 10 mg 1X ONCE IM Last administered on 09/01/18at 14:19; Start 09/01/18 at 13:45; Stop 09/01/18 at 13:46; Status DC Vancomycin HCl 1 gm/Sodium Chloride 250 ml @ 250 mls/hr Q12H IV ; Start 09/01/18 at 13:45; Status UNV Vancomycin HCl (Vanco Per Pharmacy) 1 each PRN DAILY PRN MC SEE COMMENTS Last administered on 09/02/18at 10:34; Start 09/01/18 at 14:00; Stop 09/03/18 at 12:40; Status DC Vancomycin HCl 1.25 gm/Sodium Chloride 250 ml @ 166.667 mls/hr 1X ONCE IV Last administered on 09/01/18at 21:39; Start 09/01/18 at 14:00; Stop 09/01/18 at 15:29; Status DC Olanzapine (ZyPREXA IM) 5 mg PRN BID PRN IM agitation Last administered on 09/04/18at 19:59; Start 09/01/18 at 14:00 Risperidone (RisperDAL) 1 mg QHS PO Last administered on 09/05/18at 21:28; Start 09/01/18 at 21:00; Stop 09/06/18 at 20:33; Status DC Ziprasidone (Geodon Im) 20 mg 1X ONCE IM Last administered on 09/01/18at 20:01; Start 09/01/18 at 17:00; Stop 09/01/18 at 17:01; Status DC Vancomycin HCl 750 mg/Sodium Chloride 250 ml @ 250 mls/hr Q24H IV Last administered on 09/02/18at 20:38; Start 09/02/18 at 21:30; Stop 09/03/18 at 12:40; Status DC Vancomycin HCl (Vancomycin Trough Level) 1 each 1X ONCE MC ; Start 09/03/18 at 21:00; Stop 09/03/18 at 21:00; Status DC Fentanyl Citrate (Fentanyl 2ml Vial) 25 mcg PRN Q5MIN PRN IV X 2 DOSES FOR PAIN; Start 09/02/18 at 10:30; Stop 09/02/18 at 14:41; Status DC Fentanyl Citrate (Fentanyl 2ml Vial) 50 mcg PRN Q5MIN PRN IV X 2 DOSES FOR PAIN; Start 09/02/18 at 10:30; Stop 09/02/18 at 14:41; Status DC Ringer's Solution 1,000 ml @ 125 mls/hr Q8H IV ; Start 09/02/18 at 10:29; Stop 09/02/18 at 14:41; Status DC Lidocaine HCl (Xylocaine-Mpf 1% 2ml Vial) 2 ml 1X PRN PRN ID IV START; Start 09/02/18 at 10:30; Stop 09/02/18 at 14:41; Status DC Propofol 20 ml @ As Directed STK-MED ONCE IV ; Start 09/02/18 at 11:13; Stop 09/02/18 at 11:14; Status DC Lidocaine HCl (Lidocaine Pf 2% Vial) 5 ml STK-MED ONCE .ROUTE ; Start 09/02/18 at 11:13; Stop 09/02/18 at 11:14; Status DC Albuterol Sulfate (Ventolin Neb Soln) 2.5 mg PRN QID PRN NEB WHEEZING; Start 09/03/18 at 00:45 Albuterol/ Ipratropium (Duoneb) 3 ml RTQID NEB Last administered on 09/08/18 07:19; Start 09/03/18 at 08:15 Potassium Chloride/Water 50 ml @ 25 mls/hr Q2H IV Last administered on 09/03/18 13:25; Start 09/03/18 at 11:00; Stop 09/03/18 at 14:59; Status DC Piperacillin Sod/ Tazobactam Sod 3.375 gm/Sodium Chloride 50 ml @ 100 mls/hr Q6HRS IV Last administered on 09/08/18at 06:11; Start 09/03/18 at 14:00; Stop 09/08/18 at 10:47; Status DC Alteplase, Recombinant (Cathflo For Central Catheter Clearance) 1 mg 1X ONCE INT CAT Last administered on 09/03/18 17:01; Start 09/03/18 at 14:30; Stop 09/03/18 at 14:31; Status DC Iohexol (Omnipaque 300 Mg/ml) 75 ml 1X ONCE IV Last administered on 09/03/18 17:30; Start 09/03/18 at 17:00; Stop 09/03/18 at 17:01; Status DC Info (CONTRAST GIVEN -- Rx MONITORING) 1 each PRN DAILY PRN MC SEE COMMENTS; Start 09/03/18 at 17:00; Stop 09/05/18 at 16:59; Status DC Potassium Chloride/Water 50 ml @ 50 mls/hr Q1H IV Last administered on 09/04/18 13:00; Start 09/04/18 at 12:00; Stop 09/04/18 at 13:59; Status DC Lactobacillus Rhamnosus (Culturelle) 1 cap BID PO Last administered on 09/08/18at 09:30; Start 09/04/18 at 21:00 Polyethylene Glycol (miraLAX PACKET) 17 gm BID PO Last administered on 09/07/18at 21:52; Start 09/05/18 at 21:00 Gabapentin (Neurontin) 300 mg TID PO Last administered on 09/08/18at 09:30; St art 09/06/18 at 21:00 Quetiapine Fumarate (SEROquel) 25 mg BID PO Last administered on 09/08/18 09:31; Start 09/06/18 at 21:00 Olanzapine (ZyPREXA) 5 mg PRN BID PRN PO AGITATION Last administered on 09/06/18at 20:44; Start 09/06/18 at 20:30 Amoxicillin/ Clavulanate Potassium (Augmentin 875/ 125mg) 1 tab BID PO ; Start 09/08/18 at 12:00 Active Scripts Active Reported Zinc Sulfate 220 Mg Tablet 220 Mg PO DAILY Calcium + Vitamin D Tablet (Calcium Carbonate/Vitamin D3) 1 Each Tablet 1 Each PO BID Acidophilus (Lactobacillus Acidophilus) 1 Each Capsule 2 Each PO TID Quetiapine Fumarate 25 Mg Tablet 25 Mg PO BID Lisinopril 10 Mg Tablet 10 Mg PO DAILY Protonix (Pantoprazole Sodium) 20 Mg Tablet.dr 40 Mg DAILY Miralax (Polyethylene Glycol 3350) 17 Gm Powd.pack 1 Pkt PO DAILY Alendronate Sodium 70 Mg Tablet 70 Mg PO WEEKLY Gabapentin 300 Mg Capsule 300 Mg PO TID Vital Signs Vital Signs Date Time Temp Pulse Resp B/P (MAP) Pulse Ox O2 Delivery O2 Flow Rate FiO2 09/08/18 09:00 48 101/56 09/08/18 07:19 Room Air 09/08/18 07:00 97.1 18 95 97.1 Labs Laboratory Tests Test 09/07/18 06:10 White Blood Count 10.2 x10^3/uL (4.0-11.0) Red Blood Count 3.77 x10^6/uL (4.30-5.70) Hemoglobin 10.1 g/dL (13.0-17.5) Hematocrit 30.9 % (39.0-53.0) Mean Corpuscular Volume 82 fL (79-100) Mean Corpuscular Hemoglobin 27 pg (25-35) Mean Corpuscular Hemoglobin Concent 33 g/dL (31-37) Red Cell Distribution Width 19.9 % (11.5-14.5) Platelet Count 323 x10^3/uL (140-400) Neutrophils (%) (Auto) 75 % (31-73) Lymphocytes (%) (Auto) 14 % (24-48) Monocytes (%) (Auto) 9 % (0-9) Eosinophils (%) (Auto) 1 % (0-3) Basophils (%) (Auto) 1 % (0-3) Neutrophils # (Auto) 7.6 x10^3uL (1.8-7.7) Lymphocytes # (Auto) 1.4 x10^3/uL (1.0-4.8) Monocytes # (Auto) 1.0 x10^3/uL (0.0-1.1) Eosinophils # (Auto) 0.1 x10^3/uL (0.0-0.7) Basophils # (Auto) 0.0 x10^3/uL (0.0-0.2) Sodium Level 142 mmol/L (136-145) Potassium Level 3.7 mmol/L (3.5-5.1) Chloride Level 106 mmol/L (98-107) Carbon Dioxide Level 27 mmol/L (21-32) Anion Gap 9 (6-14) Blood Urea Nitrogen 11 mg/dL (8-26) Creatinine 0.8 mg/dL (0.7-1.3) Estimated GFR (Cockcroft-Gault) 112.3 Glucose Level 89 mg/dL (70-99) Calcium Level 8.1 mg/dL (8.5-10.1) Allergies Allergies Coded Allergies Type Severity Reaction Last Updated Verified Sulfa (Sulfonamide Antibiotics) Allergy Intermediate 09/02/18 Yes ciprofloxacin Allergy Intermediate 09/02/18 Yes duloxetine Allergy Intermediate 09/02/18 Yes Disposition/Orders: Other (TO SNF WITH HOSPICE) Patient Instructions D/C PLANNING 37 MIN LAKEISHA PHILLIP MD September 08, 2018 11:30
[2018-09-08] MEDS ORDERED: IPRA3AMP29 NEB (11:33)
[2018-09-08] MEDS ORDERED: AMOX1TAB11 PO (11:33)
[2018-09-08] MEDS ORDERED: LACT1CAP19 PO (11:33)
[2018-09-08] MEDS ORDERED: DICY10CA3 PO (11:33)
--- NOTE | 2018-09-08 11:34 | SNU/HH DC ---
DISCHARGE ORDERS DISCHARGE INFORMATION: CONDITION ON DISCHARGE: Guarded CODE STATUS: Code Status: DNR/DNI LONGTERM: SNF STAY <30 DAYS: Yes HOSPICE: HOSPICE: Yes HOSPICE EVAL & TREAT: Yes LTAC: ADMIT TO LTAC: No POST DISCHARGE ORDERS: ACTIVITY ORDERS: Activity as tolerated DIET AFTER DISCHARGE: Cardiac TREATMENT/EQUIPMENT ORDERS: Physical Therapy For: Evalulation/Treatment Occupational Therapy For: Evaluation/Treatment Speech Language Pathology For: Evaluation/Treatment DISCHARGE MEDICATIONS: Home Meds Active Scripts Lactobacillus Rhamnosus Gg (CULTURELLE) 1 Each Cap.sprink, 1 CAP PO BID for SUPPLEMENT for 14 Days, #28 CAP Prov:LAKEISHA PHILLIP MD 09/08/18 Ipratropium/Albuterol Sulfate (DUONEB 0.5-3(2.5) MG/3 ML) 3 Ml Ampul.neb, 3 ML NEB RTQID for PNEUMONIA for 28 Days, #112 EACH Prov:LAKEISHA PHILLIP MD 09/08/18 Dicyclomine Hcl (DICYCLOMINE HCL) 10 Mg Capsule, 10 MG PO TID for UPSET GI, CRAMPING for 28 Days, #84 CAP Prov:LAKEISHA PHILLIP MD 09/08/18 Amoxicillin/Potassium Clav (AMOX TR-K CLV 875-125 MG TAB) 1 Each Tablet, 1 TAB PO BID for PNEUMONIA for 10 Days, #20 TAB Prov:LAKEISHA PHILLIP MD 09/08/18 Reported Medications Zinc Sulfate (ZINC SULFATE) 220 Mg Tablet, 220 MG PO DAILY for bacterial infec, TAB 09/01/18 Calcium Carbonate/Vitamin D3 (CALCIUM + VITAMIN D TABLET) 1 Each Tablet, 1 EACH PO BID for osteoporosis, TAB 09/01/18 Lactobacillus Acidophilus (ACIDOPHILUS) 1 Each Capsule, 2 EACH PO TID for reflux, CAP 09/01/18 Quetiapine Fumarate (QUETIAPINE FUMARATE) 25 Mg Tablet, 25 MG PO BID for dementia with psychosis 09/01/18 Lisinopril (LISINOPRIL) 10 Mg Tablet, 10 MG PO DAILY for htn 09/01/18 Pantoprazole Sodium (PROTONIX) 20 Mg Tablet.dr, 40 MG DAILY for reflux 09/01/18 Polyethylene Glycol 3350 (MIRALAX) 17 Gm Powd.pack, 1 PKT PO DAILY, PKT 09/26/17 Gabapentin (GABAPENTIN) 300 Mg Capsule, 300 MG PO TID for chronic pain, #360 01/10/16 Discontinued Reported Medications Alendronate Sodium (ALENDRONATE SODIUM) 70 Mg Tablet, 70 MG PO WEEKLY, TAB 09/26/17 LAKEISHA PHILLIP MD September 08, 2018 11:34
[2018-09-08] MEDS ORDERED: AMOXICILLIN/K CLAV 875/125MG TABLET. PO SCH (12:00)
--- NOTE | 2018-09-08 12:34 | PDOC ---
Objective: Objective: RN says discharging at 2:00 - seems like will go back to care facility and then have hospice follow there. Vital Signs: Vital Signs Date Time Temp Pulse Resp B/P (MAP) Pulse Ox O2 Delivery O2 Flow Rate FiO2 09/08/18 11:25 Room Air 09/08/18 11:00 96.9 89 18 111/61 (78) 98 96.9 PE: no exam A/P: Dementia ERASMO Abnormal rectum/rectosigmoid on CT -- Plans as above. HILDA CASEY September 08, 2018 12:34
--- NOTE | 2018-09-08 12:36 | NUR ---
D/C instructions & wound care instructions called in to [facility]. Nurse assigned to pt is unavailable. She will return my call.
--- NOTE | 2018-09-08 13:43 | NUR ---
ARIANNE phoned and faxed orders to [facility] and [facility]. Pt will transport via facility arranged stretcher transport at 1400. Pt's aware of plan and agreeable. She stated she will be meeting with hospice nurse at facility today. MARJORIE CASTILLO.
--- NOTE | 2018-09-08 14:10 | NUR ---
Report called to accepting facility. Attempted to call , krissy [facility]. times, no answer, unable to leave [facility] is full. Addendum: 09/08/18 at 1411 by GAIL HERNANDEZ RN RN wound DC pictures taken by wound care.
--- NOTE | 2018-09-08 15:02 | NUR ---
Discharge Note: SELVIN PAUL Discharge instructions and discharge home medications reviewed with ACCEPTING FACILITY and a copy given. All questions have been answered and understanding verbalized. Discontinued lines and drains: picc intact. Patient discharged to [facility] with Ambulance Personnel via Stretcher
== END 2018-09-08 15:05 | disposition hospice, inpatient (51) | DRG 871 ==
LOC: ER 02:48 → 1 WEST ICU 05:00 → 5 NORTH 09-02 18:03
PROVIDERS: ADMIT Internal Medicine; ATTEND Internal Medicine
PROC: 30233N1 Transfusion of Nonautologous Red Blood Cells into Peripheral Vein, Percutaneous Approach (ICD-10-PCS; 2018-09-01)
PROC: 02HV33Z Insertion of Infusion Device into Superior Vena Cava, Percutaneous Approach (ICD-10-PCS; 2018-09-01)
PROC: 0DJ08ZZ Inspection of Upper Intestinal Tract, Via Natural or Artificial Opening Endoscopic (ICD-10-PCS; principal; 2018-09-02 11:00)
DX: A41.9 Sepsis, unspecified organism (principal); J18.9 Pneumonia, unspecified organism; E43 Unspecified severe protein-calorie malnutrition; F03.91 Unspecified dementia, unspecified severity, with behavioral disturbance; J44.0 Chronic obstructive pulmonary disease with (acute) lower respiratory infection; Z68.1 Body mass index [BMI] 19.9 or less, adult; I24.8 Other forms of acute ischemic heart disease; K92.2 Gastrointestinal hemorrhage, unspecified; E87.6 Hypokalemia; K29.70 Gastritis, unspecified, without bleeding; K44.9 Diaphragmatic hernia without obstruction or gangrene; K21.9 Gastro-esophageal reflux disease without esophagitis; G89.29 Other chronic pain; M81.0 Age-related osteoporosis without current pathological fracture; I10 Essential (primary) hypertension; M19.90 Unspecified osteoarthritis, unspecified site; I45.10 Unspecified right bundle-branch block; E78.5 Hyperlipidemia, unspecified; G62.9 Polyneuropathy, unspecified; K59.00 Constipation, unspecified; Y95 Nosocomial condition; L89.309 Pressure ulcer of unspecified buttock, unspecified stage; Z66 Do not resuscitate; D50.9 Iron deficiency anemia, unspecified; F41.9 Anxiety disorder, unspecified; F39 Unspecified mood [affective] disorder; Z51.5 Encounter for palliative care; K62.89 Other specified diseases of anus and rectum; K52.9 Noninfective gastroenteritis and colitis, unspecified; Z88.1 Allergy status to other antibiotic agents; Z88.2 Allergy status to sulfonamides; Z88.8 Allergy status to other drugs, medicaments and biological substances; Z85.46 Personal history of malignant neoplasm of prostate
CPT/HCPCS: 36415; 36569; 43235; 71045; 71250; 74018; 74177; 80047; 80048; 80053; 80069; 82607; 82728; 83540; 83550; 83690; 84100; 84145; 84484; 85007; 85025; 85027; 86850; 86900; 86901; 86920; 87040; 87641; 93005; 94640; 94760; 96374; J2001; J2543; J2704; J3370; J3480; J3486; J3490; J7050; J7120; J7620; P9016; Q9967; 99285-25; J7030